=== PATIENT | female | born 1960 | race Caucasian/White ===

== ENCOUNTER → 2018-01-25 17:14 | Outpatient (CLI) | payer BC, SELFPAY ==
[2018-01-25 18:23] LABS: Hemoglobin A1c 7.6 % (4.2-6.3)
[2018-01-25 18:31] LABS: ALB/GLOB Ratio 1.1 RATIO (0.9-2.4); AST(SGOT) 24 U/L (15-37); Alanine Aminotransfer ALT/SGPT 34 U/L (13-56); Albumin, Serum 4.2 g/dL (3.2-5.0); Alkaline Phosphatase 84 U/L (45-117); Anion Gap 6 (5-15); BUN 11 mg/dL (7-18); BUN/Creat Ratio 16.8 RATIO (10-20); Calcium,Total 9.5 mg/dL (8.5-10.1); Chloride 105 mmol/L (98-107); Creatinine, Serum 0.66 mg/dL (0.55-1.02); EST Glomerular Filtration Rate 99 mL/min (>60); Est Glom Filt Rate - Afr Amer 120 mL/min (>60); Globulin 3.9 g/dL (2.2-4.2); Glucose 121 mg/dL (74-106); Potassium 4.4 mmol/L (3.5-5.1); Protein, Total 8.1 g/dL (6.4-8.2); Sodium Level 138 mmol/L (136-145)
== END ==
PROVIDERS: Family Provider Family Medicine; PCP Family Medicine; Visit Provider Family Medicine
DX: E11.9 Type 2 diabetes mellitus without complications (principal)
CPT/HCPCS: 36415; 80053; 83036

== ENCOUNTER → 2018-07-20 13:31 | Outpatient (CLI) | payer BC, SELFPAY ==
[2018-07-20 16:08] LABS: Hemoglobin A1c 7.6 % (4.2-6.3)
== END ==
PROVIDERS: Family Provider Family Medicine; PCP Family Medicine; Referring Provider Family Medicine; Visit Provider Family Medicine
DX: E11.9 Type 2 diabetes mellitus without complications (principal)
CPT/HCPCS: 36415; 83036

== ENCOUNTER → 2019-03-23 | Outpatient (CLI) | payer BC, SELFPAY ==
[2019-02-28 15:41] VITALS: BMI 35.9
[2019-03-23 11:15] LABS: Hemoglobin A1c 8.3 % (4.2-6.3)
[2019-03-23 11:33] LABS: Cholesterol 107 mg/dL (200); High Density Lipoprotein 38 mg/dL; Triglycerides 91 mg/dL; Very Low Density Lipoprotein 18 mg/dL (5-40)
== END | disposition home or self-care (01) ==
LOC: LAB 09:55
PROVIDERS: Family Provider Family Medicine; PCP Family Medicine; Referring Provider Family Medicine; Visit Provider Family Medicine
DX: E11.9 Type 2 diabetes mellitus without complications (principal); E78.5 Hyperlipidemia, unspecified
CPT/HCPCS: 36415; 80061; 83036

== ENCOUNTER → 2020-12-31 16:15 | Outpatient (CLI) | payer OTHER, SELFPAY ==
[2020-10-01 16:35] VITALS: BMI 35.0
[2020-12-31 18:02] LABS: ALB/GLOB Ratio 1.4 RATIO (0.9-2.4); AST(SGOT) 18 U/L (15-37); Alanine Aminotransfer ALT/SGPT 37 U/L (13-56); Albumin, Serum 4.5 g/dL (3.2-5.0); Alkaline Phosphatase 71 U/L (45-117); Anion Gap 7 (5-15); BUN 17 mg/dL (7-18); BUN/Creat Ratio 23.1 RATIO (10-20); Calcium,Total 9.9 mg/dL (8.5-10.1); Chloride 105 mmol/L (98-107); Cholesterol 145 mg/dL (200); Creatinine, Serum 0.74 mg/dL (0.55-1.02); EST Glomerular Filtration Rate 86 mL/min (>60); Est Glom Filt Rate - Afr Amer 104 mL/min (>60); Globulin 3.2 g/dL (2.2-4.2); Glucose 104 mg/dL (74-106); High Density Lipoprotein 47 mg/dL; Potassium 5.5 mmol/L (3.5-5.1); Protein, Total 7.7 g/dL (6.4-8.2); Sodium Level 140 mmol/L (136-145); Triglycerides 92 mg/dL; Very Low Density Lipoprotein 18 mg/dL (5-40)
[2020-12-31 18:04] LABS: Microalbumin,Random Urine < 5.0 mg/L (NO RANGE EST.)
== END ==
PROVIDERS: PCP Family Medicine; Referring Provider Family Medicine; Visit Provider Family Medicine
DX: E78.5 Hyperlipidemia, unspecified (principal); E11.9 Type 2 diabetes mellitus without complications
CPT/HCPCS: 36415; 80053; 80061; 82043; 82570

== ENCOUNTER 2022-06-14 01:19 | Emergency (ER) | payer OTHER, SELFPAY ==
[2022-06-14 01:21] VITALS: BP 152/89; PULSE 122; RESP 19; TEMP 36.9; O2SAT 95; BMI 37.3
[2022-06-14 01:28] VITALS: O2SAT 93
--- NOTE | 2022-06-14 01:28 | EKG12_ITS ---
Test Reason : CP Blood Pressure : / mmHG Vent. Rate : 099 BPM Atrial Rate : 099 BPM P-R Int : 158 ms QRS Dur : 144 ms QT Int : 390 ms P-R-T Axes : 037 -08 080 degrees QTc Int : 500 ms Sinus rhythm with frequent Premature ventricular complexes Left bundle branch block Abnormal ECG Confirmed by DUKE JACKSON, ANA LUISA ([id number]), mapping editor TAMMY LOUIS ([id number]) on 06/16/2022 8:59:03 AM Referred By: BB Confirmed By:ANA LUISA WALL MD
--- NOTE | 2022-06-14 01:28 | RAD_ITS ---
STUDY: X-RAY CHEST REASON FOR EXAM: Female, 61 years old. chest pain TECHNIQUE: Single AP portable view of the chest. COMPARISON: None. FINDINGS: The lungs are clear and expanded. There is no demonstrated pleural abnormality. Normal cardiac size with midline sternotomy wires. Normal mediastinum and adrian. Normal visualized pulmonary arteries. Normal visualized aortic arch and descending thoracic aorta. There are diffuse degenerative changes of the visualized thoracic spine. There is degenerative osteoarthritis of the bilateral shoulders. There is no demonstrated abnormality of the visualized soft tissue structures of the upper abdomen. RAD/Chest 1 View (Portable) IMPRESSION: No acute cardiopulmonary disease. Electronically Signed: Sylvie Ruiz MD at 2:15 EDT ,
--- NOTE | 2022-06-14 01:29 | ED.VIS.CHEST ---
HPI History of Present Illness Chief Complaint: Chest Pain Informant: patient, spouse/S.O. and EMS Onset/Context/Timing Onset: Hours (1) Activity at onset: sudden, onset and activity on onset (Walking back from the bathroom to her bed) Timing: Continuous Quality: Positive for Pressure Location: Substernal Current Severity: Mild Maximum Severity: Severe Worsened By: Nothing Relieved By: Nothing Associated Symptoms: Positive for Dyspnea, Cough (Started acutely with the symptoms) and Palpitations (Fluttering in chest); Negative for Nausea, Vomiting, Diaphoresis, Fever or Lightheadedness Narrative Narrative: Patient had the above symptoms and promptly called EMS, she states symptoms significantly less and just prior to EMS arrival which was maybe 20 minutes later. She had no lightheadedness or near syncope/syncope. She states they recently returned home from a couple hours away in [place] where they were at a [employer] and doing a lot of beer drinking. No drugs. Currently sober. 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 Continues to smoke. Denies cocaine. [facility] Medical History (Updated 06/14/22 @ 04:[address] Behzad Pedroza MD) CAD (coronary artery disease) Hyperlipidemia Hypertension Knee pain Shoulder pain Type 2 diabetes mellitus Home Medications aspirin 81 mg tablet,delayed release (Adult Low Dose Aspirin) 81 mg PO DAILY 01/25/18 [History Last Taken Unknown] atorvastatin 40 mg tablet 40 mg PO QDAY #90 tabs 07/23/21 [Rx Last Taken Unknown] carvedilol 3.125 mg tablet 3.125 mg PO QDAY #90 tabs 07/23/21 [Rx Last Taken Unknown] losartan 25 mg tablet 25 mg PO DAILY #90 tabs 07/23/21 [Rx Last Taken Unknown] metformin 850 mg tablet 850 mg PO BID #180 tabs 07/23/21 [Rx Last Taken Unknown] sitagliptin 100 mg tablet (Januvia) 100 mg PO QDAY #90 tabs 07/23/21 [Rx Last Taken Unknown] Allergy/AdvReac Type Severity Reaction Status Date / Time verapamil [From Isoptin] Allergy Severe confusion Verified 06/14/22 01:28 Family History Mother Degenerative joint disease Hypertension Diabetes Hyperlipidemia Grandfather Myocardial infarction Surgical History H/O hysterectomy with unilateral oophorectomy History of section History of heart bypass surgery Social History Smoking Status: Current every day smoker tobacco type: cigarettes alcohol intake: current alcohol intake frequency: a few times a week Alcohol type: beer substance use type: does not use what type of physical activity do you participate in: none ROS ROS ED Constitutional Constitutional ED: Denies chills or fever(s) Eyes Eyes: Denies change in vision or diplopia ENT ENT ED: Denies rhinorrhea or sore throat Cardiovascular Cardiovascular: Reports chest pain and palpitations Respiratory/Chest Respiratory/Chest: Reports cough; Denies dyspnea Gastrointestinal Gastrointestinal: Denies abdominal pain, diarrhea, nausea or vomiting Genitourinary Genitourinary ED: Denies dysuria or hematuria Musculoskeletal Musculoskeletal: Denies back pain or neck pain Integumentary Denies abscess or rash Neurologic Neurologic: Denies headache(s), paresthesias or weakness Psychiatric Psychiatric: Denies anxiety or suicidal thoughts EXAM Physical Exam Const Vital Signs: 06/14/22 01:21 06/14/22 01:28 06/14/22 02:21 Temperature 98.5 F Temperature Source Temporal Pulse Rate 122 H 98 Respiratory Rate 19 H 25 H Blood Pressure 152/89 H 139/81 H Blood Pressure Mean 110 100 Pulse Ox 95 93 93 Oxygen Delivery Method Room Air Room Air Room Air 06/14/22 03:00 06/14/22 04:00 Temperature Temperature Source Pulse Rate 104 H 99 Respiratory Rate 19 H 26 H Blood Pressure 132/70 H Blood Pressure Mean 90 Pulse Ox 95 93 Oxygen Delivery Method Room Air Room Air Positive well nourished, well developed and obese General Appearance ED: well developed and NAD Nutritional Appearance: obese HEENT Reports moist mucous membranes normocephalic and atraumatic Eyes PERRL and EOMs intact bilaterally Neck full ROM and supple Resp normal respiratory effort and clear to auscultation bilaterally Cardio regular rate, regular rhythm and no murmurs Rate: tachycardic and other Other Details: Frequent irregularity/PVC Peripheral Pulses: pulses 2+ throughout GI non-tender and non-distended Auscultation: normoactive bowel sounds Palpation: soft Back/Spine no CVA tenderness General Back: other FROM Extremity normal to inspection General Extremety ED: Negative for edema, pulses abnormal or tenderness General Extremity: Negative for edema or pulses abnormal Neuro oriented x3, CN's II-XII intact bilaterally and no sensory deficits noted Sensorium / Orientation: awake and alert Motor Exam: strength 5/5 throughout Psych mental status grossly normal Skin no rashes or lesions noted and no wounds Heart Score History: Moderately Suspicious ECG: Nonspecific Repolarization Age: >45 - <65 years Risk Factors: >/= 3 Risk Factors or History of CAD Troponin: </= Normal Limit Score: 5 MDM MDM MDM Narrative Medical decision making narrative: After having chest discomfort but still occasional palpitations, with frequent PVCs on the monitor. Obtained work-up, including that for pulmonary embolus since she did have recent travel. The D-dimer is elevated, so CT angiography of the chest was obtained after the 1 view chest x-ray which on my interpretation was negative/normal. CTA showed no pulmonary emboli or other acute abnormality. Her EKG shows a left bundle but I do not have an old one to compare it to. She continued to have PVCs on the monitor, and remained asymptomatic otherwise, feeling very few of them if any after her 3.5-hour observation period. Her initial troponin is 23, within normal limits. We did a repeat 2 hours later, went down to 22. Under the circumstances without any recurrent chest discomfort or symptoms, uncomfortable with her going home. We did discuss trying to curb her smoking, it is possible that she had a dysrhythmia prior to EMS arrival, at which point she started feeling better. It is also unknown if she has had PVCs for longer than when she was symptomatic since she is not feeling any of them now. I recommend close outpatient follow-up with cardiology, we discussed reasons to return. She comfortable with that plan. Lab Data Attestation: I reviewed the patient's lab results. Labs: Laboratory Results - last 24 hr 06/14/22 06/14/22 06/14/22 01:50 01:50 01:50 WBC 11.2 H RBC 4.27 Hgb 13.5 Hct 40.1 MCV 93.9 MCH 31.6 MCHC 33.7 RDW Std Deviation 44.3 H RDW Coeff of Nellie 12.9 Plt Count 196 MPV 9.7 Immature Gran % (Auto) 0.400 Neut % (Auto) 72.0 H Lymph % (Auto) 15.0 L [place] % (Auto) 7.7 Eos % (Auto) 4.5 Baso % (Auto) 0.4 Absolute Neuts (auto) 8.1 H Absolute Lymphs (auto) 1.68 Nucleated RBC % 0 D-Dimer Quant (PE/DVT) 0.73 H* Sodium 140 Potassium 4.4 Chloride 110 H Carbon Dioxide 23.0 Anion Gap 7 BUN 12 Creatinine 0.72 Estim Creat Clear Calc 68.73 Est GFR (MDRD) Af Amer 106 Est GFR (MDRD) Non-Af 88 BUN/Creatinine Ratio 16.6 Glucose 203 H Calcium 8.6 Troponin I High Sens 23 06/14/22 03:59 WBC RBC Hgb Hct MCV MCH MCHC RDW Std Deviation RDW Coeff of Nellie Plt Count MPV Immature Gran % (Auto) Neut % (Auto) Lymph % (Auto) [place] % (Auto) Eos % (Auto) Baso % (Auto) Absolute Neuts (auto) Absolute Lymphs (auto) Nucleated RBC % D-Dimer Quant (PE/DVT) Sodium Potassium Chloride Carbon Dioxide Anion Gap BUN Creatinine Estim Creat Clear Calc Est GFR (MDRD) Af Amer Est GFR (MDRD) Non-Af BUN/Creatinine Ratio Glucose Calcium Troponin I High Sens 22 Radiography Chest X-Ray - ED: 1 View, Read by ED Physician, Normal, No Acute Disease and No Infiltrates Diagnostic Testing: Clinical Impression(s) from Imaging Studies Chest X-Ray 06/14/22 01:28 IMPRESSION: No acute cardiopulmonary disease. Electronically Signed: Sylvie Ruiz MD at 2:15 EDT , Chest CTA 06/14/22 02:11 IMPRESSION: Negative CTA chest examination, without a demonstrated pulmonary embolism or arterial dissection. Mild atelectasis otherwise no acute cardiopulmonary disease. Hypoattenuating nodule with calcification within the left thyroid lobe. If indicated, this may be further assessed with ultrasound of the thyroid gland in nonacute setting. Electronically Signed: Sylvie Ruiz MD at 3:51 EDT , Rhythm Strip Rhythm Strip: Sinus Tach Rate: 110 Ectopy: PVC(s) (frequent, unifocal) EKG Initial EKG: Attestation: I personally reviewed and interpreted this EKG as follows: Interpretation: Sinus Rhythm, No Acute Injury Pattern and LBBB Comments: freq PVCs Prior: No Prior Discharge Plan Triage Chief Complaint: Chest Pain ED Provider: Behzad Pedroza Dx/Rx/DC Orders Clinical Impression: Chest pain, Chronic cough, Palpitations, Ventricular ectopy Instructions: PVCs Prescriptions: No Action aspirin [Adult Low Dose Aspirin] 81 mg tablet,delayed release (DR/EC) 81 mg PO DAILY atorvastatin 40 mg tablet 40 mg PO QDAY Qty: 90 3RF carvedilol 3.125 mg tablet 3.125 mg PO QDAY Qty: 90 4RF losartan 25 mg tablet 25 mg PO DAILY Qty: 90 3RF metformin 850 mg tablet 850 mg PO BID Qty: 180 2RF Januvia 100 mg tablet 100 mg PO QDAY Qty: 90 3RF Primary Care Provider: Desmond Locke Referrals: Desmond Locke, [Primary Care Provider] - Margarita Pulliam MD [Med Staff - Active Staff] - (this week or as soon as they can get you in -- call for appt) Disposition Disposition: Home, Self Care
[2022-06-14 01:58] LABS: Absolute Lymphocyte Count 1.68 X10^3/uL (0.83-4.51); Absolute Neutrophil Count 8.1 X10^3/uL (2.0-7.7); Basophil# 0.05 X10^3/uL; Basophil% 0.4 % (0-1); Eosinophils% 4.5 % (0-5); Hematocrit 40.1 % (37-47); Hemoglobin 13.5 g/dL (12.0-15.0); Lymphocyte # 1.68 X10^3/ul (0.83-4.51); Mean Corp Hgb Conc 33.7 g/dL (32-36); Mean Corpuscular Hgb 31.6 pg (27.0-32.0); Mean Corpuscular Volume 93.9 fL (81-99); Mean Platelet Vol. 9.7 fl (6.2-12.0); Monocyte# 0.86 X10^3/uL; Monocyte% 7.7 % (0-10); NRBC Flagged by Analyzer 0 % (0-5); Neutrophil # 8.09 X10^3/uL (2.7-7.7); Platelet Count 196 K/mm3 (150-450); RBC Distribution Width CV 12.9 % (11.6-14.6); RBC Distribution Width SD 44.3 fl (35.1-43.9); Red Blood Count 4.27 M/mm3 (4.2-5.4); White Blood Count 11.2 K/mm3 (4.4-11.0)
[2022-06-14 02:10] LABS: D-Dimer Quantitative (DVT/PE) 0.73 FEU/ug/m (0.27-0.49)
--- NOTE | 2022-06-14 02:11 | CT_ITS ---
STUDY: CTA CHEST REASON FOR EXAM: Female, 61 years old. chest pain, sob, elevated d-dimer RADIATION DOSAGE (If Supplied By Facility): CTDIvol = ( 32.20 ) mGy, DLP = ( 602.78 ) mGycm TECHNIQUE: The examination was performed with the intravenous administration of IV 100mL Isovue-370. Post-processing of the angiographic images was performed, with multiplanar reformation and 3D reconstruction. Individualized dose optimization techniques were used for this CT. COMPARISON: None. FINDINGS: Normal enhancement of the main pulmonary artery and right and left pulmonary arteries. Normal enhancement of the bilateral peripheral pulmonary arteries. There is no demonstrated pulmonary embolism. Normal thoracic aorta and visualized great vessels. There is no demonstrated aortic dissection. Mild cardiomegaly with median sternotomy wires suggestive of prior CABG repair. Normal mediastinum. Normal hilar regions. Normal visualized trachea and bronchi. The lungs are slightly underexpanded. Minimal bilateral posterior dependent atelectasis otherwise normal lung parenchyma. Normal pleura. There is a large heterogeneous hypodensity with internal calcification within the left thyroid lobe measuring 2.6 x 3.0 cm. Normal chest wall structures. There are degenerative changes of thoracic spine. Normal visualized upper abdomen. CT/CTA Chest W/WO Contrast IMPRESSION: Negative CTA chest examination, without a demonstrated pulmonary embolism or arterial dissection. Mild atelectasis otherwise no acute cardiopulmonary disease. Hypoattenuating nodule with calcification within the left thyroid lobe. If indicated, this may be further assessed with ultrasound of the thyroid gland in nonacute setting. Electronically Signed: Sylvie Ruiz MD at 3:51 EDT ,
[2022-06-14 02:16] LABS: Anion Gap 7 (5-15); BUN 12 mg/dL (7-18); BUN/Creat Ratio 16.6 RATIO (10-20); Calcium,Total 8.6 mg/dL (8.5-10.1); Chloride 110 mmol/L (98-107); Creatinine, Serum 0.72 mg/dL (0.55-1.02); EST Glomerular Filtration Rate 88 mL/min (>60); Est Glom Filt Rate - Afr Amer 106 mL/min (>60); Estimated Creatinine Clearance 68.73 ml/min; Glucose 203 mg/dL (74-106); Potassium 4.4 mmol/L (3.5-5.1); Sodium Level 140 mmol/L (136-145); Troponin-I HS (w/2H Reflex) 23 pg/mL (3.0-54.0)
[2022-06-14 02:21] VITALS: BP 139/81; PULSE 98; RESP 25; O2SAT 93
[2022-06-14 03:00] VITALS: BP 132/70; PULSE 104; RESP 19; O2SAT 95
[2022-06-14 03:54] LABS: Reflex Troponin-HS? (from REC) Y
[2022-06-14 04:00] VITALS: PULSE 99; RESP 26; O2SAT 93
[2022-06-14 04:45] LABS: Troponin-I HS 22 pg/mL (3.0-54.0)
[2022-06-14 04:48] VITALS: BP 132/70; PULSE 98; RESP 27; O2SAT 94
== END 2022-06-14 04:55 | disposition home or self-care (01) ==
PROVIDERS: Emergency Provider Emergency Medicine; PCP Family Medicine; Visit Provider Emergency Medicine
DX: R07.9 Chest pain, unspecified (principal); E11.9 Type 2 diabetes mellitus without complications; I49.3 Ventricular premature depolarization; R05.3 Chronic cough; R00.2 Palpitations; I25.10 Atherosclerotic heart disease of native coronary artery without angina pectoris; I10 Essential (primary) hypertension; E78.5 Hyperlipidemia, unspecified; E66.9 Obesity, unspecified; F17.210 Nicotine dependence, cigarettes, uncomplicated; Z79.82 Long term (current) use of aspirin; Z79.84 Long term (current) use of oral hypoglycemic drugs; Z79.899 Other long term (current) drug therapy
CPT/HCPCS: 36415; 71045; 71275; 80048; 84484; 85025; 85379; 87811; 93005; 96360; 99285; J7040; Q9967; A4216

== ENCOUNTER → 2022-06-25 | Outpatient (CLI) | payer OTHER, SELFPAY | END | disposition home or self-care (01) | LOC: SL 12:02 | PROVIDERS: Referring Provider Nurse Practitioner Family; Visit Provider Nurse Practitioner Family | DX: G47.10 Hypersomnia, unspecified (principal) | CPT/HCPCS: 95806 ==

== ENCOUNTER → 2022-07-12 | Outpatient (CLI) | payer OTHER, SELFPAY ==
--- NOTE | 2022-07-12 06:47 | ECHOCS_ITS ---
Reason For Study: CAD Procedure This was a 2D Doppler, Color Flow transthoracic echocardiogram. The study was technically difficult. Contrast injection was performed. Exam performed in department. Left Ventricle Normal LV size. Left ventricular systolic function is lower limits of normal. The estimated ejection fraction is 50 %. Septal motion consistent with IVCD. No evidence for diastolic dysfunction. Basal inferoseptal: Hypokinetic. Basal anteroseptal: Hypokinetic. Mid-inferoseptal : Hypokinetic. Mid- anteroseptal : Hypokinetic. Septal [place] : Hypokinetic. Right Ventricle Normal RV size. Normal systolic function. Atria Normal left atrium. Normal right atrium. No doppler evidence for ASD. Mitral Valve There is no mitral annular calcification. Normal mitral valve. Trivial mitral valve insufficiency. Tricuspid Valve Normal tricuspid valve. Trivial tricuspid valve insufficiency. Unable to estimate RV systolic pressure/pulmonary artery pressure due to technically difficult study. Aortic Valve Trisinus/trileaflet aortic valve. Mild focal aortic valve calcification. Trivial aortic valve insufficiency. Pulmonic Valve The pulmonic valve is not well visualized. Great Vessels Normal sized aortic root. Pericardium/Pleural No pericardial effusion. Medication Diluted definity 2ml given slow IV push to enhance endocardial definition. MMode/2D Measurements & Calculations LVIDd: 4.8 cm IVSd: 1.2 cm Ao root diam: 3.4 cm LVIDs: 3.5 cm LVPWd: 1.0 cm RVDd: 3.3 cm FS: 27.1 % LAV(MOD-bp): 44.0 ml LVAd ap4: 33.4 cm2 LVAd ap2: 30.0 cm2 LAV(MOD-bp) Indexed: 22.7 ml/m2 LVLd ap4: 9.1 cm LVLd ap2: 9.0 cm LAV(MOD-sp2): 43.0 ml EDV(MOD-sp4): 104.8 ml EDV(MOD-sp2): 83.8 ml LAV(MOD-sp4): 43.0 ml EDV(sp4-el): 104.0 ml EDV(sp2-el): 84.6 ml LVAs ap4: 23.8 cm2 LVAs ap2: 19.5 cm2 LVLs ap4: 8.4 cm LVLs ap2: 8.1 cm ESV(MOD-sp4): 56.9 ml ESV(MOD-sp2): 39.4 ml ESV(sp4-el): 57.4 ml ESV(sp2-el): 40.0 ml EF(MOD-sp4): 45.7 % EF(MOD-sp2): 52.9 % EF(sp4-el): 44.8 % SV(MOD-sp4): 47.9 ml SV(MOD-sp2): 44.3 ml SV(sp4-el): 46.6 ml LA A4 area: 17.1 cm2 LA dimension(2D): 4.0 cm RA A4 area: 14.6 cm2 Time Measurements MV dec time: 0.18 sec Doppler Measurements & Calculations MV E max sebastian: 79.2 cm/sec Lat Peak E' Sebastian: 10.5 cm/sec Med Peak E' Sebastian: 6.3 cm/sec MV A max sebastian: 83.9 cm/sec E/E' lat: 7.6 E/E' med: 12.5 MV E/A: 0.95 Ao V2 max: 157.1 cm/sec LV V1 max: 96.4 cm/sec MV dec slope: 439.3 cm/sec2 Ao max P.9 mmHg LV V1 max P.7 mmHg PA V2 max: 112.9 cm/sec ECHO/Echo Complete W/ Contrast Interpretation Summary The study was technically difficult. Contrast injection was performed. Left ventricular systolic function is lower limits of normal. The estimated ejection fraction is 50 %. Septal motion consistent with IVCD. Trivial mitral valve insufficiency. Trivial tricuspid valve insufficiency. Mild focal aortic valve calcification. Trivial aortic valve insufficiency. Unable to estimate RV systolic pressure/pulmonary artery pressure due to techni noble difficult study. No evidence for diastolic dysfunction. Ordering Physician: Herminio Anand Referring Physician: Daniel Locke M.D. Performed By: Viji Alvarenga RDCS
[2022-07-12 07:51] LABS: AST(SGOT) 36 U/L (15-37); Alanine Aminotransfer ALT/SGPT 40 U/L (13-56); Albumin, Serum 3.9 g/dL (3.2-5.0); Alkaline Phosphatase 65 U/L (45-117); Bilirubin, Direct 0.14 mg/dL (0.00-0.30); Cholesterol 109 mg/dL (200); Globulin 3.8 g/dL (2.2-4.2); High Density Lipoprotein 45 mg/dL; Protein, Total 7.7 g/dL (6.4-8.2); Triglycerides 128 mg/dL; Very Low Density Lipoprotein 26 mg/dL (5-40)
--- NOTE | 2022-07-12 11:53 | STRESSREP_ITS ---
Stress Test Report Date: Procedure: Pharmacologic stress nuclear imaging study Indications: Chest pain; dyspnea; CAD; CABG; left bundle branch block Consent: Per the patient Procedure: The patient underwent pharmacologic (Regadenoson 0.4mg ) evaluation with a peak heart rate of 98 beats per minute (61%predicted maximal heart rate) and a peak blood pressure of 164/84 mmHg. The baseline ECG demonstrated sinus rhythm; left bundle branch block pattern. The peak pharmacologic ECG demonstrated continued left bundle branch block pattern. There were occasional PVCs during infusion and recovery. There was no complaint of chest discomfort during pharmacologic infusion or recovery. The examination was discontinued secondary to completion of protocol. Impression: 1. Pharmacologic (Regadenoson) evaluation 2. Peak pharmacologic ECG with continued left bundle branch block pattern. 3. There were occasional PVCs during infusion and recovery. 4. Nuclear images pending Myocardial perfusion imaging study: Technique: The patient was injected with 11.1 millicuries of technetium 99m Cardiolite and subsequently rest SPECT Cardiolite nuclear imaging was obtained in the horizontal long, vertical long, and short axis views. The patient underwent pharmacologic (Regadenoson) evaluation with a peak heart rate of 98 beats per minute (61% percent predicted maximal heart rate) and a peak blood pressure of 164/84 mmHg. The patient was injected with 35.0 millicuries of technetium 99m Cardiolite and subsequently stress SPECT Cardiolite nuclear imaging was obtained in the horizontal long, vertical long, and short axis views. A gated Cardiolite study at peak stress was obtained. Interpretation: Rest and stress SPECT Cardiolite nuclear imaging status post realignment, normalization, and attenuation correction demonstrate the appearance of a small area of diminished myocardial perfusion/tracer uptake in the septal apical areas without significant change between rest and stress. There is end systolic thickening and brightening. The gated Cardiolite study demonstrates myocardial thickening and inward wall motion. The reported LVEF is 57%. Impression: 1. Rest and stress SPECT Cardiolite nuclear imaging demonstrate myocardial perfusion changes in the septal apical area potentially compatible with physiologic apical thinning, however, an area of previous myocardial injury/infarction cannot necessarily be excluded. There are no myocardial perfusion changes considered diagnostic for associated stress-induced myocardial ischemia. 2. The gated Cardiolite study reports an LVEF of 57%. This note was generated with ioBridge software. It may contain incorrect words, spelling, and punctuation that were not noted in checking the note before signing.
== END | disposition home or self-care (01) ==
PROVIDERS: PCP Family Medicine; Referring Provider Internal Medicine Cardiovascular Disease; Visit Provider Internal Medicine Cardiovascular Disease
DX: I49.3 Ventricular premature depolarization (principal); Z95.1 Presence of aortocoronary bypass graft; R00.2 Palpitations; I44.7 Left bundle-branch block, unspecified; I25.10 Atherosclerotic heart disease of native coronary artery without angina pectoris; E78.2 Mixed hyperlipidemia; I10 Essential (primary) hypertension; Z72.0 Tobacco use
CPT/HCPCS: 36415; 78452; 80061; 80076; 93017; 93225; 93226; 93306; A9500; Q9957; A4216; C8929; J2785

== ENCOUNTER → 2022-08-09 | Outpatient (CLI) | payer OTHER, SELFPAY | END | disposition home or self-care (01) | LOC: SL 08:50 | PROVIDERS: PCP Family Medicine; Visit Provider Nurse Practitioner Family | DX: Z00.00 Encounter for general adult medical examination without abnormal findings (principal) ==

== ENCOUNTER → 2022-09-20 | Outpatient (CLI) | payer OTHER, SELFPAY | END | disposition home or self-care (01) | LOC: LABSPEC 10:26 | PROVIDERS: PCP Family Medicine; Referring Provider Physician Assistant; Visit Provider Physician Assistant | DX: U07.1 COVID-19 (principal); R50.9 Fever, unspecified; M79.10 Myalgia, unspecified site | CPT/HCPCS: 87635; U0003; U0005 ==

== ENCOUNTER → 2022-10-04 | Outpatient (CLI) | payer OTHER, SELFPAY ==
--- NOTE | 2022-10-04 16:15 | US_ITS ---
STUDY: THYROID ULTRASOUND REASON FOR EXAM: Female, 61 years old. left thyroid nodule TECHNIQUE: Ultrasound evaluation of the thyroid was performed with real-time and static valderrama-scale imaging. COMPARISON: None. FINDINGS: RIGHT LOBE: The right lobe of the thyroid gland measures 6.0 x 2.5 x 1.5 cm. There is a homogeneous echotexture. Nodule 1:30 x 15 x 22 mm solid isoechoic wider than tall ill-defined marginated nodule with no echogenic foci (TR 3) in the mid right lobe and fine needle aspiration biopsy is recommended. Nodule 2:6 x 6 x 4 mm solid hypoechoic wider than tall smoothly marginated nodule and no echogenic foci (TR 4) in the inferior right lobe consistent with an adenoma. LEFT LOBE: The left lobe of the thyroid gland measures 8.2 x 4.1 x 3.1 cm. There is a homogeneous echotexture. Nodule 3:57 x 27 x 35 mm solid isoechoic wire than tall ill-defined marginated nodule with macrocalcification (TR 4) in the mid left lobe for which ultrasound-guided biopsy is recommended. ISTHMUS: The isthmus measures 2 mm thick. . The regional lymph nodes are normal. US/Thyroid IMPRESSION: Dominant nodules bilaterally and ultrasound-guided biopsy is recommended. Follow-up ultrasound is recommended in 1 year. Electronically Signed: Juanito Balderrama MD at 17:03 EST ,
== END | disposition home or self-care (01) ==
PROVIDERS: PCP Family Medicine; Referring Provider Nurse Practitioner Family; Visit Provider Nurse Practitioner Family
DX: E04.1 Nontoxic single thyroid nodule (principal)
CPT/HCPCS: 76536

== ENCOUNTER → 2022-10-11 | Outpatient (CLI) | payer OTHER, SELFPAY ==
--- NOTE | 2022-10-11 08:40 | FLU_PTH ---
PATIENT: HAMZAH SRINIVASAN LOC: [facility] U#:[id number] AGE/SX: 61/F ROOM: RE10/11/[address]: Dr. Ifeanyi Mirza MD : 1960 BED: DIS: 10/11/2022 SPEC #: [id number] RECD: 10/11/22 10:47 STATUS: [place] REQ #: [id number] DANYA: 10/11/22 08:[address]: Ifeanyi Mirza DEPT: CYTOLOGY RECD BY: Renita Alarcon ENTERED: 10/11/22 13:45 SP TYPE: Fluid OTHR DR: Dr. Desmond Locke DO Tissues: A - Thyroid gland, NOS B - Thyroid gland, NOS C - Thyroid gland, NOS D - Thyroid gland, NOS Procedures: Special Stain Group II Surgery Specimen Level IV Cytospin Fluid Cytology Other HEADER OPERATION: Fine needle aspiration right and left thyroid nodules PRE-OP DIAGNOSIS: Multiple thyroid nodules TISSUE SUBMITTED: A ? Left thyroid nodule fluid, B - Left thyroid nodule x4 slides, C ? Right thyroid nodule fluid, D ? Left thyroid nodule x4 slides DIAGNOSIS CYTOLOGY A. Left thyroid nodule fluid, fine needle aspiration (cytospin and cell block): A few follicular cells of undetermined significance ([place] Category III). B. Left thyroid nodule, fine needle aspiration (smears): Follicular cells of undetermined significance ([place] Category III). See comment. C. Right thyroid nodule fluid, fine needle aspiration (cytospin and cell block): Clusters of benign follicular cells noted. D. Right thyroid nodule, fine needle aspiration (smears): Consistent with benign follicular/colloid nodule ([place] Category II). Adequate for evaluation. See comment. SJ:liam 10/12/2022 COMMENT B. The specimen is paucicellular; however, meets the minimal criteria for adequacy of the specimen. Multi-gene next-generation sequencing panel is recommended for this lesion. Correlation with clinical, radiologic findings and appropriate follow up are necessary. Case has been reviewed in consultation with Dr. Mcdonald who concurs with the above diagnosis. IDC:AM CYTOLOGY STUDY Slides are reviewed. CYTOLOGY GROSS A - Received is 20 ml of red cloudy fluid labeled with the patient's name and and designated per the requisition as left thyroid. Submitted for cytology preparation including cell block. B - Received are four smears labeled with the patient's name and designated per the requisition as left thyroid nodule. Submitted for staining. C - Received is 15 ml of red cloudy fluid labeled with the patient's name and and designated per the requisition as right thyroid nodule. Submitted for cytology preparation including cell block. D - Received are four smears labeled with the patient's name and designated per the requisition as right thyroid nodule. Submitted for staining. / liam 10/11/2022 TC:5 CPT: 82910 x4, 60195 x2
== END | disposition home or self-care (01) ==
LOC: LABSPEC 10:59
PROVIDERS: PCP Family Medicine; Visit Provider Surgery
DX: E04.2 Nontoxic multinodular goiter (principal)
CPT/HCPCS: 88108; 88161; 88305; 88313

== ENCOUNTER → 2022-11-15 | Outpatient (CLI) | payer OTHER, SELFPAY ==
--- NOTE | 2022-11-15 08:30 | FLU_PTH ---
PATIENT: HAMZAH SRINIVASAN LOC: [facility] U#:[id number] AGE/SX: 61/F ROOM: RE11/15/[address]: Dr. Ifeanyi Mirza MD : 1960 BED: DIS: 11/15/2022 SPEC #: [id number] RECD: 11/15/22 10:50 STATUS: [place] REQ #: [id number] DANYA: 11/15/22 08:[address]: Ifeanyi Mirza DEPT: CYTOLOGY RECD BY: Renita Alarcon ENTERED: 11/15/22 12:00 SP TYPE: Fluid OTHR DR: Dr. Desmond Locke, DO Tissues: A - Thyroid gland, NOS B - Thyroid gland, NOS Procedures: Special Stain Group II Surgery Specimen Level IV Cytospin Fluid Cytology Other HEADER OPERATION: Left mid thyroid nodule fine needle aspiration PRE-OP DIAGNOSIS: Left mid thyroid nodule TISSUE SUBMITTED: A - Left mid thyroid nodule fluid, B - Left mid thyroid nodule x4 slides DIAGNOSIS CYTOLOGY A. Fine needle aspiration, left mid thyroid nodule (cytospin and cell block): Negative for malignant cells. See comment. B. Fine needle aspiration, left mid thyroid nodule (smears): Atypia of undetermined clinical significance ([place] Category III). See comment. AM:liam 11/16/2022 COMMENT A. Rare benign appearing follicular cells are present. The [place] System for thyroid diagnostic categorization was used in the evaluation of this case. The specimen is adequate for evaluation. Per recommendations and a clinician-approved plan (a call was made to the referring doctor about the recommendation), genomic testing (Afirma) has been submitted. Results will be reported as an addendum and faxed to clinician. Reference is made to the patient's previous left thyroid nodule, FNA ([id number]) in which follicular cells of undetermined significance were identified. CYTOLOGY STUDY Slides are reviewed. CYTOLOGY GROSS A - Received is 30 ml of red cloudy fluid labeled with the patient's name and and designated per the requisition as left mid thyroid nodule. Submitted for cytology preparation including cell block. B - Received are four smears labeled with the patient's name and designated per the requisition as left mid thyroid nodule. Submitted for staining. / liam 11/15/2022 TC:? CPT: 51500 x2, 39272
== END | disposition home or self-care (01) ==
LOC: LABSPEC 10:57
PROVIDERS: PCP Family Medicine; Referring Provider Surgery; Visit Provider Surgery
DX: E04.1 Nontoxic single thyroid nodule (principal)
CPT/HCPCS: 88108; 88161; 88305; 88313

== ENCOUNTER 2023-01-26 13:46 | Emergency (ER) | payer OTHER, SELFPAY ==
[2023-01-26 13:47] VITALS: BP 166/87; PULSE 82; RESP 18; TEMP 35.4; O2SAT 99; BMI 32.8
--- NOTE | 2023-01-26 15:49 | CT_ITS ---
STUDY: CT ABDOMEN AND PELVIS WITHOUT CONTRAST REASON FOR EXAM: Female, 62 years old. Kidney Stone- right hip./ flank pain RADIATION DOSAGE (If Supplied By Facility): CTDIvol = ( 15.80 ) mGy, DLP = ( 738.31 ) mGycm TECHNIQUE: Transaxial images were obtained from the dome of the diaphragm to the symphysis pubis without oral contrast, and without intravenous contrast. Sagittal and coronal images were reconstructed. Individualized dose optimization techniques were used for this CT. COMPARISON: None. FINDINGS: The visualized lung bases are unremarkable. The visualized portions of the heart are within normal limits. Normal liver. Normal gallbladder and extrahepatic biliary system. Normal spleen. Normal pancreas. Normal bilateral adrenal glands. Punctate right renal nonobstructing nephrolith is present. Normal left kidney. Normal visualized stomach. Normal small intestine. Normal colon. The appendix is visualized and appears normal. There is diffuse atherosclerotic calcification of the abdominal aorta, without a demonstrated aneurysm. Normal inferior vena cava. Normal retroperitoneum. Normal urinary bladder. Normal abdominal wall. Normal osseous structures. CT/Abdomen/Pelvis without Cont IMPRESSION: Right renal punctate nonobstructing nephrolith with no evidence of ureteral stone or hydronephrosis. Otherwise no additional acute intra-abdominal process or focal inflammation. Normal appendix. Electronically Signed: Miguel Angel Mauro DO at 16:49 EDT ,
--- NOTE | 2023-01-26 15:50 | EDS_ITS ---
HPI History of Present Illness Chief Complaint: Lower Extremity Injury Informant: patient Narrative Narrative: Patient is a 62-year-old female presenting with throbbing right hip pain. States its been going on for the past 4 days. She states currently her position of comfort is standing and leaning forward. She is been taking ibuprofen with no significant leaf. [facility] and an x-ray of her back which showed degenerative changes and was told that her urine did not have any blood in it. Patient states she has some pain rating down the front of her thigh with some mild subjective paresthesias. She denies any urinary or bowel complaints. She was having some mild constipation but took a small amount of milk of magnesia yesterday and that cleared up the constipation. She notes she does have a history of kidney stones and this feels similar to her kidney stones. Patient denies any nausea or vomiting. She denies any fever. She was offered steroids and muscle relaxers yesterday at the urgent care however declined stating that she is already on too many medicines. No other complaints at this time. [facility] Medical History Atherosclerotic heart disease of [place] coronary artery without angina pectoris CAD (coronary artery disease) Dyspnea Essential hypertension History of non-ST elevation myocardial infarction (NSTEMI) Hyperlipidemia Hypersomnia Hypertension Knee pain LBBB (left bundle branch block) Left thyroid nodule Mixed hyperlipidemia JAUN (obstructive sleep apnea) JAUN (obstructive sleep apnea) Right hip pain Right low back pain Shoulder pain Tobacco abuse Type 2 diabetes mellitus URI, acute Home Medications aspirin 81 mg tablet,delayed release (Adult Low Dose Aspirin) 81 mg PO DAILY 01/25/18 [History Last Taken Unknown] carvedilol 6.25 mg tablet 6.25 mg PO BID #180 tabs 07/14/22 [Rx Last Taken Unknown] losartan 25 mg tablet 25 mg PO BID #180 tabs 07/14/22 [Rx Last Taken Unknown] atorvastatin 40 mg tablet 40 mg PO QDAY #90 tabs 08/23/22 [Rx Last Taken Unknown] tirzepatide 5 mg/0.5 mL subcutaneous pen injector (Mounjaro) 5 mg (0.5 mL) subcut QWEEK #2 mL 11/29/22 [Rx Last Taken Unknown] empagliflozin 25 mg tablet (Jardiance) See Rx Instructions .Route .COMPLEX #90 tabs 01/11/23 [Rx Last Taken Unknown] metformin 500 mg tablet 500 mg PO BID #180 tabs 01/11/23 [Rx Last Taken Unknown] hydrocodone-acetaminophen 5-325mg 5mg-325mg 1 tab PO Q6H PRN PRN Pain 3 days #12 TABLETS 01/26/23 [Rx Last Taken Unknown] prednisone 20 mg tablet 40 mg PO DAILY #8 tabs 01/26/23 [Rx Last Taken Unknown] Allergy/AdvReac Type Severity Reaction Status Date / Time verapamil [From Isoptin] Allergy Severe confusion Verified 01/26/23 13:49 Family History Mother Degenerative joint disease Hypertension Diabetes Hyperlipidemia Grandfather Myocardial infarction Surgical History H/O hysterectomy with unilateral oophorectomy History of section History of coronary artery bypass graft x 3 (~03/29/14) Social History Smoking Status: Current every day smoker tobacco type: cigarettes Tobacco: How many years used: 10 alcohol intake: current alcohol intake frequency: a few times a week Alcohol type: beer details: 2-3 per week substance use type: does not use caffeine: Yes Type: coffee Number of servings: 4 what type of physical activity do you participate in: none ROS ROS ED Constitutional Constitutional ED: Denies chills Cardiovascular Cardiovascular: Denies chest pain or palpitations Respiratory/Chest Respiratory/Chest: Denies cough Gastrointestinal Gastrointestinal: Reports constipation; Denies abdominal pain, nausea or vomiting Genitourinary Genitourinary ED: Denies dysuria, hematuria or urinary frequency Musculoskeletal Musculoskeletal: Reports back pain; Denies myalgias Integumentary Denies rash Neurologic Neurologic: Reports paresthesias; Denies headache(s) or weakness Psychiatric Psychiatric: Denies anxiety Hematologic/Lymphatic Hematologic/Lymphatic: Denies easy bleeding or easy bruising EXAM Physical Exam Const Vital Signs: 01/26/23 18:40 Respiratory Rate 18 Positive well nourished and well developed General Appearance ED: well developed HEENT Reports moist mucous membranes Eyes PERRL and EOMs intact bilaterally Neck supple Chest Wall inspection of chest normal Resp normal respiratory effort and clear to auscultation bilaterally Cardio regular rate, regular rhythm and no murmurs GI normal to inspection, nondistended, normoactive bowel sounds and non-tender Back/Spine no CVA tenderness Back/Spine Narrative: Negative straight leg test bilaterally. Laying flat seems to exacerbate her symptoms however. General Back: Negative for CVA tenderness Thoracic Spine / Upper Back: Negative for thoracic spinal tenderness Extremity normal to inspection General Extremety ED: Negative for edema or tenderness General Extremity: Negative for edema Neuro oriented x3 Sensorium / Orientation: alert Motor Exam: Negative for general weakness Psych mental status grossly normal Skin no rashes or lesions noted and no wounds MDM MDM MDM Narrative Medical decision making narrative: Patient presents for continued right hip pain. She has a hard time finding position of comfort. She was seen at urgent care yesterday and had an x-ray of her back. She is also steroids and muscle relaxers but had declined at that time. She is having a hard time working because of her pain so she came to the emergency room today. She does have some paresthesias over her anterior thigh. She has negative straight leg test bilaterally. No focal neurologic deficits appreciated. No overlying rash consistent with shingles. Work-up largely normal. She is have a history of kidney stones and kidney stone work-up was obtained. She has a nonobstructing stone in the right kidney however this does not explain her symptoms. No findings distant with pyelonephritis. She does not have any peripheral edema. Patient counseled the exact cause of her pain is not clear however I suspect it is more muscle skeletal/neuropathic in nature. Discussed the risk and benefits of steroid therapy including hyperglycemia. Patient will be discharged home with a prescription for steroid burst as well as short course of pain medicine to help with her symptoms. Is given referral to pain management, Dr. Martinez. Encouraged follow-up with primary care doctor. Patient has good distal pulses and I do not think this is a vascular issue at this time. Lab Data Labs: Laboratory Results - last 24 hr 01/26/23 01/26/23 01/26/23 16:04 16:04 17:25 WBC 7.4 RBC 5.07 Hgb 15.7 H Hct 48.3 H MCV 95.3 MCH 31.0 MCHC 32.5 RDW Std Deviation 46.0 H RDW Coeff of Nellie 13.2 Plt Count 262 MPV 9.6 Immature Gran % (Auto) 0.400 Neut % (Auto) 56.7 Lymph % (Auto) 28.5 Hughes % (Auto) 9.6 Eos % (Auto) 4.3 Baso % (Auto) 0.5 Absolute Neuts (auto) 4.2 Absolute Lymphs (auto) 2.10 Nucleated RBC % 0 Sodium 142 Potassium 4.7 Chloride 110 H Carbon Dioxide 30.0 Anion Gap 2 L BUN 18 Creatinine 0.77 Estim Creat Clear Calc 63.47 Est GFR (MDRD) Af Amer 99 Est GFR (MDRD) Non-Af 81 BUN/Creatinine Ratio 23.5 H Glucose 139 H Calcium 9.4 Urine Color Yellow Urine Clarity Clear Urine pH 7.0 Ur Specific [place] 1.010 Urine Protein 15 H Urine Glucose (UA) 1000 H Urine Ketones Negative Urine Occult Blood Negative Urine Nitrite Negative Urine Bilirubin Negative Urine Urobilinogen Normal Ur Leukocyte Esterase Negative Urine RBC 0 SEEN Urine WBC 0-5 SEEN Ur Squamous Epith Cells 0-5 SEEN Urine Bacteria 0 SEEN Urine Mucus 0 SEEN Radiography Diagnostic Testing: Clinical Impression(s) from Imaging Studies Abdomen/Pelvis CT 01/26/23 15:49 IMPRESSION: Right renal punctate nonobstructing nephrolith with no evidence of ureteral stone or hydronephrosis. Otherwise no additional acute intra-abdominal process or focal inflammation. Normal appendix. Electronically Signed: Miguel Angel Mauro DO at 16:49 EDT Reading Location ID and State: [facility] / [place] , Service support , Hip/Pelvis X-Ray 01/26/23 16:15 IMPRESSION: Moderate hip arthrosis with no evidence of acute osseous injury. Electronically Signed: Miguel Angel Mauro DO at 16:41 EDT , Discharge Plan Triage Chief Complaint: Lower Extremity Injury ED Provider: Alexus Mercado Dx/Rx/DC Orders Clinical Impression: Acute pain of right hip, Neuropathic pain Instructions: ED Arthralgia Prescriptions: New prednisone 20 mg tablet 40 mg PO DAILY Qty: 8 0RF hydrocodone-acetaminophen 5-325 mg tablet 1 tab PO Q6H PRN PRN (Reason: Pain) 3 Days Qty: 12 0RF No Action aspirin [Adult Low Dose Aspirin] 81 mg tablet,delayed release (DR/EC) 81 mg PO DAILY atorvastatin 40 mg tablet 40 mg PO QDAY Qty: 90 3RF Jardiance 25 mg tablet See Rx Instructions .ROUTE .COMPLEX Qty: 90 1RF Dose Instruction: TAKE 1 TABLET BY MOUTH EVERY DAY IN THE MORNING Rx Instructions: TAKE 1 TABLET BY MOUTH EVERY DAY IN THE MORNING metformin 500 mg tablet 500 mg PO BID Qty: 180 2RF carvedilol 6.25 mg tablet 6.25 mg PO BID Qty: 180 4RF Rx Instructions: must administer with a meal/food losartan 25 mg tablet 25 mg PO BID Qty: 180 4RF Mounjaro 5 mg/0.5 mL pen injector 5 mg subcut QWEEK Qty: 2 2RF Primary Care Provider: Desmond Locke Referrals: Santana Martinez DO [Non-Staff] - 1-2 Days if not improving Desmond Locke, [Primary Care Provider] - Activity Restrictions/Additional Instructions: The exact cause of your pain is not clear based on your work-up today. No signs of kidney infection or hip injury. 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 I suspect nerve from your back is getting irritated and this is causing your pain. If you have new numbness or weakness of the leg please return to the emergency room. You can continue to alternate ibuprofen and Tylenol. You were placed on a short burst of steroids. Please keep an eye on your blood sugars as steroids do cause your blood sugars to go up. Discussed this with your primary care doctor. You been given referral to a pain management doctor as well. Disposition Disposition: Home, Self Care Discharge Date/Time: 01/26/23 18:41
[2023-01-26] MEDS: 0.9% Normal Saline 1,000 ML 250 ML IV (16:04)
--- NOTE | 2023-01-26 16:15 | RAD_ITS ---
STUDY: X-RAY - PELVIS AND RIGHT HIP REASON FOR EXAM: Female, 62 years old. pain TECHNIQUE: 3 views of the pelvis and hip. COMPARISON: None. FINDINGS: There is a non-specific bowel gas pattern. Normal visualized soft tissue structures. Normal bilateral iliac wings, sacroiliac joints and visualized sacrum. Normal bilateral superior and inferior pubic rami. Normal pubic symphysis. Normal bilateral ischial tuberosities. Normal visualized femoral head. Normal acetabulum. There is moderate articular joint space narrowing of the hip. RAD/HIP, UNI W/ Pelvis 2-3 Views IMPRESSION: Moderate hip arthrosis with no evidence of acute osseous injury. Electronically Signed: Miguel Angel Mauro DO at 16:41 EDT ,
[2023-01-26 16:17] LABS: Absolute Neutrophil Count 4.2 X10^3/uL (2.0-7.7); Basophil# 0.04 X10^3/uL; Basophil% 0.5 % (0-1); Eosinophil# 0.32 X10^3/uL; Eosinophils% 4.3 % (0-5); Hematocrit 48.3 % (37-47); Hemoglobin 15.7 g/dL (12.0-15.0); Lymphocyte % 28.5 % (19-41); Mean Corp Hgb Conc 32.5 g/dL (32-36); Mean Corpuscular Volume 95.3 fL (81-99); Mean Platelet Vol. 9.6 fl (6.2-12.0); Monocyte# 0.71 X10^3/uL; Monocyte% 9.6 % (0-10); NRBC Flagged by Analyzer 0 % (0-5); Neutrophil # 4.16 X10^3/uL (2.7-7.7); Neutrophil % 56.7 % (47-70); Platelet Count 262 K/mm3 (150-450); RBC Distribution Width CV 13.2 % (11.6-14.6); Red Blood Count 5.07 M/mm3 (4.2-5.4); White Blood Count 7.4 K/mm3 (4.4-11.0)
[2023-01-26 16:29] LABS: Anion Gap 2 (5-15); BUN 18 mg/dL (7-18); BUN/Creat Ratio 23.5 RATIO (10-20); Calcium,Total 9.4 mg/dL (8.5-10.1); Chloride 110 mmol/L (98-107); Creatinine, Serum 0.77 mg/dL (0.55-1.02); EST Glomerular Filtration Rate 81 mL/min (>60); Est Glom Filt Rate - Afr Amer 99 mL/min (>60); Estimated Creatinine Clearance 63.47 ml/min; Glucose 139 mg/dL (74-106); Potassium 4.7 mmol/L (3.5-5.1); Sodium Level 142 mmol/L (136-145)
[2023-01-26 17:31] LABS: Bacteria 0 SEEN /hpf (None Seen); Mucous, Urine 0 SEEN /hpf (<or=2+); Red Blood Cells-Urine 0 SEEN /hpf (0-5)
[2023-01-26 17:37] LABS: Color, Urine Yellow (Yellow); Glucose, Dipstick 1000 mg/dl (Normal); Ketone-Dipstick Negative (Negative); Leukocyte Esterase-Dipstick Negative /ul (Negative); Nitrite-Dipstick Negative (Negative); Occult Blood-Urine Negative /ul (Negative); Protein-Dipstick 15 mg/dl (Negative); Urine Bilirubin Dipstick Negative (Negative); Urine Clarity Clear (Clear); Urine Urobilinogen Normal (Normal)
[2023-01-26 17:53] LABS: Squamous Epithelial Cells - UA 0-5 SEEN /hpf (5-10); White Blood Cells 0-5 SEEN /hpf (0-5)
[2023-01-26] MEDS: HYDROcodone Bitartrate/Apap 5/325 Tablet PO (18:39)
[2023-01-26] MEDS: predniSONE 20 MG Tablet 60 MG PO (18:39)
[2023-01-26 18:40] VITALS: RESP 18
== END 2023-01-26 18:41 | disposition home or self-care (01) ==
PROVIDERS: Emergency Provider Emergency Medicine; PCP Family Medicine; Visit Provider Emergency Medicine
DX: M25.551 Pain in right hip (principal); E11.40 Type 2 diabetes mellitus with diabetic neuropathy, unspecified; E78.2 Mixed hyperlipidemia; I25.10 Atherosclerotic heart disease of native coronary artery without angina pectoris; N20.0 Calculus of kidney; I10 Essential (primary) hypertension; Z79.52 Long term (current) use of systemic steroids; F17.210 Nicotine dependence, cigarettes, uncomplicated; K59.00 Constipation, unspecified; M54.9 Dorsalgia, unspecified; R20.2 Paresthesia of skin
CPT/HCPCS: 73502; 74176; 80048; 81001; 85025; 96360; 96361; 99284; J7030

== ENCOUNTER → 2023-04-27 | Outpatient (CLI) | payer OTHER, SELFPAY ==
[2023-04-27 16:19] LABS: AST(SGOT) 18 U/L (15-37); Alanine Aminotransfer ALT/SGPT 39 U/L (13-56); Albumin, Serum 4.1 g/dL (3.2-5.0); Alkaline Phosphatase 80 U/L (45-117); Bilirubin, Direct 0.28 mg/dL (0.00-0.30); Cholesterol 124 mg/dL (200); Globulin 3.7 g/dL (2.2-4.2); High Density Lipoprotein 51 mg/dL; Protein, Total 7.8 g/dL (6.4-8.2); Triglycerides 116 mg/dL; Very Low Density Lipoprotein 23 mg/dL (5-40)
== END | disposition home or self-care (01) ==
PROVIDERS: PCP Family Medicine; Referring Provider Nurse Practitioner Family; Visit Provider Nurse Practitioner Family
DX: E78.2 Mixed hyperlipidemia (principal); Z95.1 Presence of aortocoronary bypass graft
CPT/HCPCS: 36415; 80061; 80076

== ENCOUNTER → 2023-10-07 | Outpatient (CLI) | payer OTHER, SELFPAY ==
--- NOTE | 2023-10-07 14:15 | US_ITS ---
EXAM: US SOFT TISSUES HEAD AND NECK, THYROID CLINICAL INDICATION: Thyromegaly, multiple thyroid nodules TECHNIQUE: Grayscale and color doppler imaging was performed of the thyroid gland. COMPARISON: 10/04/2022. FINDINGS: LEFT THYROID LOBE: Complex predominantly solid mass measuring 5.0 x 3.3 x 4 cm left lobe of the thyroid is isoechoic, wider than tall mildly lobulated with macrocalcifications, no peripheral calcifications and no punctate calcifications. It is not significantly changed in size since the previous examination. The left lobe of thyroid lobe measures 7.2 x 4.3 x 3.5 cm. RIGHT THYROID LOBE: Solid heterogeneous isoechoic nodule measuring 1.6 x 1.2 x 1.3 cm right lobe of the thyroid is wider than tall, smooth, without echogenic foci. Solid heterogeneous isoechoic to hypoechoic nodule measuring 3.0 x 2.2 x 1.5 cm right lobe of the thyroid is wider than tall, smooth, and without echogenic foci. It is not significantly changed compared to the prior examination. Solid very hypoechoic nodule measuring 6 x 4 x 5 mm right lobe of the thyroid is wider than tall, smooth, without echogenic foci. The right lobe of thyroid lobe measures 6.5 x 2.4 x 1.7 cm. ISTHMUS: Unremarkable. No thyroid nodules are present. The isthmus measures 0.5 cm in thickness. US/Thyroid IMPRESSION: 1. Complex predominantly solid mass measuring 5.0 x 3.3 x 4 cm left lobe of the thyroid is isoechoic, wider than tall mildly lobulated with macrocalcifications, no peripheral calcifications and no punctate calcifications. It is not significantly changed in size since the previous examination. TI-RADS points: 6. TI-RADS category: TR4. This nodule is moderately suspicious. The patient has already undergone fine-needle aspiration of this nodule 10/11/2022. 2. Solid heterogeneous isoechoic nodule measuring 1.6 x 1.2 x 1.3 cm right lobe of the thyroid is wider than tall, smooth, without echogenic foci. TI-RADS points: 3. TI-RADS category: TR3. This nodule is mildly suspicious. Recommend follow-up thyroid ultrasounds at 2 and 4 years. 3. Solid heterogeneous isoechoic to hypoechoic nodule measuring 3.0 x 2.2 x 1.5 cm right lobe of the thyroid is wider than tall, smooth, and without echogenic foci. It is not significantly changed compared to the prior examination. TI-RADS points: 3. TI-RADS category: TR3. This nodule is mildly suspicious. Recommend follow-up thyroid ultrasounds at 2 and 4 years. 4. Solid very hypoechoic nodule measuring 6 x 4 x 5 mm right lobe of the thyroid is wider than tall, smooth, without echogenic foci. TI-RADS points: 5. TI-RADS category: TR4. This nodule is moderately suspicious but no FNA or follow-up is necessary given the small size of this nodule. Electronically Signed: Ifeanyi Hurt MD at 6:47 EST ,
== END | disposition home or self-care (01) ==
PROVIDERS: PCP Nurse Practitioner Family; Referring Provider Surgery; Visit Provider Surgery
DX: E04.2 Nontoxic multinodular goiter (principal)
CPT/HCPCS: 76536

== ENCOUNTER → 2024-01-25 | Outpatient (CLI) | payer OTHER, SELFPAY ==
[2024-01-25 11:06] LABS: AST(SGOT) 20 U/L (15-37); Alanine Aminotransfer ALT/SGPT 42 U/L (13-56); Albumin, Serum 3.7 g/dL (3.2-5.0); Alkaline Phosphatase 91 U/L (45-117); CPK Total, Creatine Kinase 50 U/L (26-192); Cholesterol 114 mg/dL (200); Globulin 3.6 g/dL (2.2-4.2); High Density Lipoprotein 49 mg/dL; Protein, Total 7.3 g/dL (6.4-8.2); Triglycerides 72 mg/dL; Very Low Density Lipoprotein 14 mg/dL (5-40)
== END | disposition home or self-care (01) ==
LOC: LAB 09:53
PROVIDERS: PCP Nurse Practitioner Family; Referring Provider Internal Medicine Cardiovascular Disease; Visit Provider Internal Medicine Cardiovascular Disease
DX: R06.00 Dyspnea, unspecified (principal); I25.10 Atherosclerotic heart disease of native coronary artery without angina pectoris; I25.2 Old myocardial infarction; I44.7 Left bundle-branch block, unspecified; R00.2 Palpitations; Z95.1 Presence of aortocoronary bypass graft; E78.2 Mixed hyperlipidemia
CPT/HCPCS: 36415; 80061; 80076; 82550

== ENCOUNTER 2024-02-22 08:51 | Emergency (ER) | payer OTHER, SELFPAY ==
[2024-02-22] VITALS (7 sets, daily range): BP systolic 135–164; BP diastolic 74–91; PULSE 69–103; RESP 15–19; TEMP 36.6; O2SAT 96–100; BMI 31.4
--- NOTE | 2024-02-22 09:10 | EKG12_ITS ---
Test Reason : CP Blood Pressure : / mmHG Vent. Rate : 083 BPM Atrial Rate : 083 BPM P-R Int : 154 ms QRS Dur : 148 ms QT Int : 410 ms P-R-T Axes : 034 024 102 degrees QTc Int : 481 ms Normal sinus rhythm Left bundle branch block Confirmed by JOSE JACKSON, RAFAL ([id number]), graphics editor LANIE DUNAWAY ([id number]) on 02/23/2024 11:33:18 AM Referred By: ES/ Confirmed By:RAFAL GARCIA MD
--- NOTE | 2024-02-22 09:13 | RAD_ITS ---
STUDY: X-RAY CHEST REASON FOR EXAM: Female, 63 years old. Chest pain TECHNIQUE: Single AP portable view of the chest. COMPARISON: Comparison is made with prior study dated June 14, 2022. FINDINGS: EKG electrodes are seen. The lungs are clear and expanded. There is no demonstrated pleural abnormality. Sternal cerclage wires and vascular clips are present from a prior sternotomy and coronary artery bypass graft procedure (CABG). Normal mediastinum and adrian. Normal visualized pulmonary arteries. Normal visualized aortic arch and descending thoracic aorta. There are diffuse degenerative changes of the visualized thoracic spine. Calcific tendinitis of the right shoulder. There is no demonstrated abnormality of the visualized soft tissue structures of the upper abdomen. RAD/Chest 1 View (Portable) IMPRESSION: No acute abnormality is seen. Electronically Signed: Kanu Hahn MD at 9:30 EDT ,
[2024-02-22] MEDS: Aspirin 81 MG TAB.CHEW 324 MG PO (09:18)
--- NOTE | 2024-02-22 09:22 | ED.VIS.CHEST ---
HPI History of Present Illness Chief Complaint: Chest Pain Informant: patient Onset/Context/Timing Onset: Yesterday Timing: Intermittent Associated Symptoms: Negative for Nausea, Vomiting, Diaphoresis or Dyspnea Narrative Narrative: 63-year-old female presenting with intermittent left arm pain. She states this occasionally goes into her neck. She denies chest pain or shortness of breath. States symptoms usually last approximately 1 minute. She denies association with exertion. Denies nausea, vomiting, diaphoresis. She has history of CABG, hypertension, hyperlipidemia, smoking. 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 Vazquez. Last stress test was 2021. She states she does a lot of heavy lifting but does not recall a specific injury. Prior Similar Symptoms: No Recent Illness/Hospitalization: No CVD Risk Factors: Positive for Hypertension, Diabetes, Hypercholesterolemia and Smoking PE Risk Factors: Negative for Recent Travel/Surgery, Recent Immobilization, Prior DVT or PE, Cancer or OCP + Smoking + >/=35 PFSH PFSH Medical History Atherosclerotic heart disease of [place] coronary artery without angina pectoris CAD (coronary artery disease) Chronic cough Dyspnea Essential hypertension History of non-ST elevation myocardial infarction (NSTEMI) Hyperlipidemia Hypersomnia Hypertension Knee pain LBBB (left bundle branch block) Left thyroid nodule Mixed hyperlipidemia Multiple thyroid nodules JAUN (obstructive sleep apnea) JAUN (obstructive sleep apnea) Palpitations PVC (premature ventricular contraction) Right hip pain Right knee pain Right low back pain Shoulder pain Thyromegaly Tobacco abuse Type 2 diabetes mellitus URI, acute Home Medications aspirin 81 mg tablet,delayed release (Adult Low Dose Aspirin) 81 mg PO DAILY 01/25/18 [History Last Taken 02/22/24] atorvastatin 40 mg tablet 40 mg PO QDAY #90 tabs 04/19/23 [Rx Last Taken 02/21/24] carvedilol 6.25 mg tablet 6.25 mg PO BID #180 tabs 04/19/23 [Rx Last Taken 02/22/24] empagliflozin 25 mg tablet (Jardiance) See Rx Instructions .Route .COMPLEX #90 tabs 04/19/23 [Rx Last Taken 02/22/24] losartan 25 mg tablet 25 mg PO BID #180 tabs 04/19/23 [Rx Last Taken 02/22/24] tirzepatide 7.5 mg/0.5 mL subcutaneous pen injector (Joãoro) 7.5 mg subcut QWEEK 11/16/23 [History Last Taken 02/20/24] Allergy/AdvReac Type Severity Reaction Status Date / Time verapamil [From Isoptin] Allergy Severe confusion Verified 02/22/24 08:53 Family History Mother Degenerative joint disease Hypertension Diabetes Hyperlipidemia Grandfather Myocardial infarction Surgical History H/O hysterectomy with unilateral oophorectomy History of section History of coronary artery bypass graft x 3 (~03/29/14) Social History Smoking Status: Current every day smoker tobacco type: cigarettes Tobacco: How many years used: 10 alcohol intake: current alcohol intake frequency: a few times a week Alcohol type: beer details: 2-3 per week substance use type: does not use caffeine: Yes Type: coffee Number of servings: 4 what type of physical activity do you participate in: none ROS ROS ED Constitutional Constitutional ED: Denies fever(s) Eyes Eyes: Denies change in vision ENT ENT ED: Denies rhinorrhea or sore throat Cardiovascular Cardiovascular: Reports other Details: Left arm pain ; Denies chest pain or palpitations Respiratory/Chest Respiratory/Chest: Reports cough and other Details: Chronic cough ; Denies dyspnea Gastrointestinal Gastrointestinal: Denies abdominal pain, diarrhea, nausea or vomiting Genitourinary Genitourinary ED: Denies dysuria Musculoskeletal Musculoskeletal: Denies myalgias Integumentary Denies rash Neurologic Neurologic: Denies headache(s) Psychiatric Psychiatric: Denies suicidal thoughts EXAM Physical Exam Const Vital Signs: 02/22/24 08:51 02/22/24 09:22 02/22/24 09:51 Temperature 97.8 F Temperature Source Temporal Pulse Rate 103 H 82 Respiratory Rate 16 16 Respiratory Effort Normal Non-Labored Respiratory Pattern Normal Blood Pressure 161/91 H 140/79 H Blood Pressure Mean 114 99 Pulse Ox 100 97 Oxygen Delivery Method Room Air Room Air 02/22/24 10:00 02/22/24 11:00 02/22/24 12:00 Temperature Temperature Source Pulse Rate 70 69 74 Respiratory Rate 18 16 15 Respiratory Effort Respiratory Pattern Blood Pressure 137/75 H 135/75 H 146/75 H Blood Pressure Mean 95 95 98 Pulse Ox 96 97 96 Oxygen Delivery Method Room Air Room Air Room Air 02/22/24 13:00 Temperature Temperature Source Pulse Rate 69 Respiratory Rate 19 H Respiratory Effort Respiratory Pattern Blood Pressure 157/76 H Blood Pressure Mean 103 Pulse Ox 97 Oxygen Delivery Method Room Air Positive well nourished and well developed General Appearance ED: well developed HEENT Reports normocephalic and head/scalp atraumatic Eyes PERRL and EOMs intact bilaterally Neck supple General: Negative for tenderness Chest Wall inspection of chest normal Resp normal respiratory effort and clear to auscultation bilaterally Cardio regular rate and regular rhythm GI non-tender and non-distended Palpation: soft; Negative for guarding or rebound tenderness present no CVA tenderness Extremity normal to inspection Neuro oriented x3 Sensorium / Orientation: alert Psych mental status grossly normal Skin no rashes or lesions noted Heart Score History: Slightly/Non-Suspicious ECG: Nonspecific Repolarization Age: >45 - <65 years Risk Factors: >/= 3 Risk Factors or History of CAD Troponin: </= Normal Limit Score: 4 MDM MDM MDM Narrative Medical decision making narrative: Patient was given aspirin. EKG is sinus rhythm, left bundle branch block, similar to previous. Differential diagnosis includes ACS, musculoskeletal pain, pneumonia, COPD. CBC, chemistries unremarkable other than glucose 172. Troponin negative. Delta troponin negative. Chest x-ray shows no acute process. Patient is resting comfortably on reevaluation. She is pain-free. She is requesting discharge home. Discussed with Dr. León, recommend outpatient follow-up. Patient is agreeable with this plan. Advised return to the ED for any worsening complaints. Lab Data Attestation: I reviewed the patient's lab results. Labs: Laboratory Results - last 24 hr 02/22/24 02/22/24 09:15 11:15 WBC 7.7 RBC 5.05 Hgb 15.9 H Hct 47.1 H MCV 93.3 MCH 31.5 MCHC 33.8 RDW Std Deviation 42.8 RDW Coeff of Nellie 12.5 Plt Count 307 MPV 8.7 Immature Gran % (Auto) 0.400 Neut % (Auto) 65.4 Lymph % (Auto) 24.0 Cole % (Auto) 6.7 Eos % (Auto) 3.1 Baso % (Auto) 0.4 Absolute Neuts (auto) 5.0 Absolute Lymphs (auto) 1.85 Nucleated RBC % 0 Sodium 139 Potassium 4.1 Chloride 110 H Carbon Dioxide 25.0 Anion Gap 4 L BUN 20 H Creatinine 0.76 Estim Creat Clear Calc 77.06 Est GFR (MDRD) Af Amer 99 Est GFR (MDRD) Non-Af 82 BUN/Creatinine Ratio 26.4 H Glucose 172 H Calcium 9.6 Troponin I High Sens 5 5 Radiography Diagnostic Testing: Clinical Impression(s) from Imaging Studies Chest X-Ray 02/22/24 09:13 IMPRESSION: No acute abnormality is seen. Electronically Signed: Kanu Hahn MD at 9:30 EDT , EKG Initial EKG: Attestation: I personally reviewed and interpreted this EKG as follows: Interpretation: Sinus Rhythm and LBBB Prior: Unchanged Discharge Plan Triage Chief Complaint: Chest Pain ED Provider: Karina Ruiz Dx/Rx/DC Orders Clinical Impression: Arm pain, left Instructions: ED Chest Pain, Uncertain Cause Prescriptions: No Action aspirin [Adult Low Dose Aspirin] 81 mg tablet,delayed release (DR/EC) 81 mg PO DAILY losartan 25 mg tablet 25 mg PO BID Qty: 180 4RF Jardiance 25 mg tablet See Rx Instructions .ROUTE .COMPLEX Qty: 90 1RF Dose Instruction: TAKE 1 TABLET BY MOUTH EVERY DAY IN THE MORNING Rx Instructions: TAKE 1 TABLET BY MOUTH EVERY DAY IN THE MORNING carvedilol 6.25 mg tablet 6.25 mg PO BID Qty: 180 4RF Rx Instructions: must administer with a meal/food atorvastatin 40 mg tablet 40 mg PO QDAY Qty: 90 3RF Rx Instructions: please fill as 90 days if allowed Mounjaro 7.5 mg/0.5 mL pen injector 7.5 mg subcut QWEEK Primary Care Provider: Nish Bahena Referrals: Nish Bahena, [employer] [Primary Care Provider] - Disposition Disposition: Home, Self Care
[2024-02-22 09:36] LABS: Absolute Lymphocyte Count 1.85 X10^3/uL (0.83-4.51); Basophil# 0.03 X10^3/uL; Basophil% 0.4 % (0-1); Eosinophil# 0.24 X10^3/uL; Eosinophils% 3.1 % (0-5); Hematocrit 47.1 % (37-47); Hemoglobin 15.9 g/dL (12.0-15.0); Lymphocyte # 1.85 X10^3/ul (0.83-4.51); Mean Corp Hgb Conc 33.8 g/dL (32-36); Mean Corpuscular Hgb 31.5 pg (27.0-32.0); Mean Corpuscular Volume 93.3 fL (81-99); Mean Platelet Vol. 8.7 fl (6.2-12.0); Monocyte# 0.52 X10^3/uL; Monocyte% 6.7 % (0-10); NRBC Flagged by Analyzer 0 % (0-5); Neutrophil # 5.04 X10^3/uL (2.7-7.7); Neutrophil % 65.4 % (47-70); Platelet Count 307 K/mm3 (150-450); RBC Distribution Width CV 12.5 % (11.6-14.6); RBC Distribution Width SD 42.8 fl (35.1-43.9); Red Blood Count 5.05 M/mm3 (4.2-5.4); White Blood Count 7.7 K/mm3 (4.4-11.0)
[2024-02-22 09:55] LABS: Anion Gap 4 (5-15); BUN 20 mg/dL (7-18); BUN/Creat Ratio 26.4 RATIO (10-20); Calcium,Total 9.6 mg/dL (8.5-10.1); Chloride 110 mmol/L (98-107); Creatinine, Serum 0.76 mg/dL (0.55-1.02); EST Glomerular Filtration Rate 82 mL/min (>60); Est Glom Filt Rate - Afr Amer 99 mL/min (>60); Estimated Creatinine Clearance 77.06 ml/min; Glucose 172 mg/dL (74-106); Potassium 4.1 mmol/L (3.5-5.1); Sodium Level 139 mmol/L (136-145); Troponin-I HS (w/2H Reflex) 5 pg/mL (3.0-54.0)
[2024-02-22 11:30] LABS: Reflex Troponin-HS? (from REC) Y
[2024-02-22 11:55] LABS: Troponin-I HS 5 pg/mL (3.0-54.0)
== END 2024-02-22 14:00 | disposition home or self-care (01) ==
PROVIDERS: Emergency Provider Emergency Medicine; PCP Nurse Practitioner Family; Visit Provider Emergency Medicine
DX: M79.602 Pain in left arm (principal); E11.9 Type 2 diabetes mellitus without complications; I44.7 Left bundle-branch block, unspecified; I10 Essential (primary) hypertension; Z95.1 Presence of aortocoronary bypass graft; E78.2 Mixed hyperlipidemia; I25.10 Atherosclerotic heart disease of native coronary artery without angina pectoris; Z79.899 Other long term (current) drug therapy; F17.210 Nicotine dependence, cigarettes, uncomplicated
CPT/HCPCS: 71045; 80048; 84484; 85025; 93005; 99284; A4216

== ENCOUNTER 2024-03-05 14:33 | Emergency (ER) | payer OTHER, SELFPAY ==
[2024-03-05 14:34] VITALS: BP 138/82; PULSE 72; RESP 16; TEMP 36.6; O2SAT 98; BMI 31.1
== END 2024-03-05 15:16 | disposition left against medical advice (07) ==
LOC: ED 15:26
PROVIDERS: PCP Nurse Practitioner Family
DX: Z53.21 Procedure and treatment not carried out due to patient leaving prior to being seen by health care provider (principal)

== ENCOUNTER → 2024-03-28 | Outpatient (CLI) | payer OTHER, SELFPAY ==
--- NOTE | 2024-03-28 14:25 | NEURO_ITS ---
NCS and/or EMG Patient Report Ordering Doctor: Nish Bahena [facility] DATE OF SERVICE: 03/28/24 Adina presents with numbness and tingling in the left hand and arm. Electrodiagnostic findings: Left median motor nerve demonstrates normal distal latency, amplitude with reduced conduction velocity. Left ulnar motor response demonstrates normal distal latency and amplitude with a nearly 20% drop in conduction across the elbow. Normal median ulnar F?waves. Prolonged left median sensory latency at the wrist. Normal ulnar and radial sensory responses. Needle EMG testing was performed the left upper limb. All muscles tested showed no evidence of denervation with normal motor unit action potentials. Electrodiagnostic impression: This is an abnormal study in the left upper limb 1. Electrodiagnostic findings demonstrate left-sided median mononeuropathy. This is consistent with a mild left carpal tunnel syndrome 2. Electrodiagnostic findings suggestive of left-sided ulnar neuropathy, consistent with a mild left cubital tunnel syndrome 3. No electrodiagnostic evidence is noted for cervical radiculopathy. Multi Select Codes Neurology Neurology Interp Codes: 51496-95 Musc test done w/n test comp (interp) and 52943-63 Nrv cndj test 7-8 studies (interp)
== END | disposition home or self-care (01) ==
PROVIDERS: PCP Nurse Practitioner Family; Referring Provider Nurse Practitioner Family; Visit Provider Nurse Practitioner Family
DX: R20.2 Paresthesia of skin (principal)
CPT/HCPCS: 95886; 95910

== ENCOUNTER → 2024-08-30 | Outpatient (CLI) | payer OTHER, SELFPAY | END | disposition home or self-care (01) | LOC: OPBD 15:41 | PROVIDERS: PCP Nurse Practitioner Family; Referring Provider Nurse Practitioner Family; Visit Provider Nurse Practitioner Family | DX: Z78.0 Asymptomatic menopausal state (principal) | CPT/HCPCS: 77080 ==

== ENCOUNTER → 2024-09-06 | Outpatient (CLI) | payer OTHER, SELFPAY ==
[2024-09-06 17:00] LABS: Absolute Neutrophil Count 4.9 X10^3/uL (2.0-7.7); Basophil# 0.05 X10^3/uL; Basophil% 0.6 % (0-1); Eosinophil# 0.22 X10^3/uL; Eosinophils% 2.6 % (0-5); Hematocrit 50.6 % (37-47); Hemoglobin 16.9 g/dL (12.0-15.0); Lymphocyte % 29.1 % (19-41); Mean Corp Hgb Conc 33.4 g/dL (32-36); Mean Corpuscular Hgb 31.9 pg (27.0-32.0); Mean Corpuscular Volume 95.5 fL (81-99); Mean Platelet Vol. 9.1 fl (6.2-12.0); Monocyte# 0.84 X10^3/uL; Monocyte% 9.8 % (0-10); NRBC Flagged by Analyzer 0 % (0-5); Neutrophil # 4.94 X10^3/uL (2.7-7.7); Neutrophil % 57.6 % (47-70); Platelet Count 255 K/mm3 (150-450); RBC Distribution Width CV 12.7 % (11.6-14.6); RBC Distribution Width SD 45.6 fl (35.1-43.9); White Blood Count 8.6 K/mm3 (4.4-11.0)
[2024-09-06 17:25] LABS: Microalbumin,Random Urine < 5.0 mg/L (NO RANGE EST.)
[2024-09-06 17:27] LABS: AST(SGOT) 16 U/L (15-37); Alanine Aminotransfer ALT/SGPT 45 U/L (13-56); Alkaline Phosphatase 84 U/L (45-117); Anion Gap 7 (5-15); BUN 24 mg/dL (7-18); BUN/Creat Ratio 33.8 RATIO (10-20); Calcium,Total 9.7 mg/dL (8.5-10.1); Chloride 104 mmol/L (98-107); Cholesterol 129 mg/dL (200); Creatinine, Serum 0.71 mg/dL (0.55-1.02); EST Glomerular Filtration Rate 88 mL/min (>60); Est Glom Filt Rate - Afr Amer 107 mL/min (>60); Glucose 119 mg/dL (74-106); High Density Lipoprotein 55 mg/dL; Potassium 4.1 mmol/L (3.5-5.1); Sodium Level 137 mmol/L (136-145); Triglycerides 112 mg/dL; Very Low Density Lipoprotein 22 mg/dL (5-40)
== END | disposition home or self-care (01) ==
LOC: VSLAB 15:38
PROVIDERS: PCP Nurse Practitioner Family; Visit Provider Nurse Practitioner Family
DX: E11.9 Type 2 diabetes mellitus without complications (principal)
CPT/HCPCS: 36415; 80053; 80061; 82043; 84443; 85025

== ENCOUNTER → 2024-10-01 | Outpatient (CLI) | payer OTHER, SELFPAY ==
--- NOTE | 2024-10-01 16:23 | US_ITS ---
EXAM: US SOFT TISSUES HEAD AND NECK, THYROID CLINICAL INDICATION: Surveillance -- nodule TECHNIQUE: Greyscale and color doppler imaging was performed of the thyroid gland. COMPARISON: Thyroid ultrasound, 10/07/2023 and 10/04/2022. FINDINGS: LEFT THYROID LOBE: The left thyroid lobe measures 7.5 x 4.1 x 2.9 cm. The left thyroid lobe is diffusely heterogenous. There is a 5.6 cm left thyroid nodule. This nodule is solid or almost completely solid, hyperechoic or isoechoic, [id number], margins cannot be determined and contains microcalcifications. TI-RADS points: 4. TI-RADS category: TR4. This nodule is moderately suspicious. Recommend FNA evaluation. RIGHT THYROID LOBE: The right thyroid lobe measures 6.9 x 2.6 x 2.0 cm. The right thyroid lobe is diffusely heterogenous. There is a 1.4 cm right thyroid nodule. This nodule is solid or almost completely solid, hyperechoic or isoechoic, [id number], ill-defined and contains no echogenic foci. TI-RADS points: 3. TI-RADS category: TR3. This nodule is mildly suspicious but no FNA or follow-up is necessary given the small size of this nodule. There is a 3.0 cm right thyroid nodule. This nodule is solid or almost completely solid, hyperechoic or isoechoic, [id number], ill-defined and contains no echogenic foci. TI-RADS points: 3. TI-RADS category: TR3. This nodule is mildly suspicious. Recommend FNA evaluation. There is a 0.6 cm right thyroid nodule. This nodule is spongiform. TI-RADS points: 0. TI-RADS category: TR1. This nodule is benign and no FNA or follow-up is necessary. ISTHMUS: Thyroid isthmus measures 0.2 cm. No thyroid nodules are present. US/Thyroid IMPRESSION: 1. Thyromegaly. 2. Bilateral thyroid nodules for which FNA is recommended. Although prior FNA was performed of at least the left side thyroid nodule, there has been interval increase in size and a repeat FNA is recommended if definitive management is not performed. Electronically Signed: Viral Soler, at 20:36 EST ,
== END | disposition home or self-care (01) ==
PROVIDERS: PCP Nurse Practitioner Family; Referring Provider Surgery; Visit Provider Surgery
DX: E04.1 Nontoxic single thyroid nodule (principal)
CPT/HCPCS: 76536

== ENCOUNTER → 2025-07-06 | Outpatient (CLI) | payer OTHER, SELFPAY ==
--- OUTSIDE RECORDS SUMMARY | 2025-07-06 08:45 | XMS RPT_ITS | CCD ---
Author Organization [facility] Care Team Providers Care Wallpaper Cleaner Name Role Phone Lanie Monet Admitting Unavailable Lanie Monet Attending Unavailable No Doctor Assigned, Nodr Primary Care Unavail able Desmond Locke Primary Care Provider [phone] Desmond Locke Primary Care Provider Otoniel Matos Primary Care Provider [phone] Dr. Desmond Locke Primary Care Provider [phone] Dr. Desmond Locke Referring Provider Josef CIGAR BINDER, CIGAR BINDER-C Nish Attending Provider Chayito Howell Attending Provider Unavailable Dr. Herminio Anand Attending Provider [phone] Otoniel Matos DO Primary Care Provider Dr. Desmond Locke Primary Care Provider [phone] Dr. Desmond Locke Referring Provider Josef CIGAR BINDER, CIGAR BINDER-C Nish Attending Provider Chayito Howell Attending Provider Unavailable Dr. Herminio Anand Attending Provider Ashleigh NOONAN, CIGAR BINDER-C [facility] Unavailab Dr. Desmond Toro Primary Care Provider Dr. Desmond Locke Referring Provider Josef CIGAR BINDER, CIGAR BINDER-C Nish Attending Provider Dr. Ifeanyi Mirza Attending Provider Dr. Desmond Locke Primary Care Provider [phone] Dr. Desmond Locke Referring Provider Dr. Desmond Locke Primary Care Provider [phone] Dr. Desmond Locke Referring Provider [phone] Bahena CIGAR BINDER, CIGAR BINDER-C Nish Attending Provider [phone] Dr. Ifeanyi Mirza Attending Provider Jonathan AGUIRRE, [place] Manny Arenas Attending Provider Dr. Alexys León Attending Provider Dr. Desmond Locke Primary Care Provider Dr. Desmond Locke Referring Provider Bahena CIGAR BINDER, CIGAR BINDER-C Nish Attending Provider [phone] CIGAR BINDER, CIGAR BINDER-C Marky Blancas Attending Provider [phone] Desmond Locke Referring Provider [phone] Cliff Vazquez Attending Provider Bahena VSC, CIGAR BINDER-C Nish Primary Care Provider Bahena CIGAR BINDER-C, Nish Primary Care Provider Bahena CIGAR BINDER-C, Nish Referring Provider Cliff NOONAN-CKellie Attending Provider Nish Bahena Attending Unavailable Bahena, Nish Referring Unavailable Bahena, Nish Primary Care Unavailable Josef, Nish Primary Care Unavailable Ifeanyi Mirza Attending Unavailable Ifeanyi Mirza Referring Unavailable Bahena, Nish Referring Unavailable Bahena, Nish Primary Care Unavailable Kellie Coronado NP Attending Unavailable Bahena, Nish Referring Unavailable Bahena, Nish Primary Care Unavailable Ifeanyi Mirza Attending Unavailable Bahena, Nish Primary Care Unavailable Bahena, Nish Attending Unavailable Allergies Allergy Classification Reported Allergen(s) Allergy Type Date of Onset Reaction(s) Facility (1 source) No Known Medication Allergies; Translations: [No Known Medication Allergies] Propensity to adverse reactions to drug (disorder) [facility] Repository (17 sources) Verapamil Drug Allergy 6 Other (See Comments) [facility] (1 source) Verapamil Drug Allergy 5 [facility] Repository Medications Current Medications Medication Drug Class(es) Dates Sig (Normalized) Sig (Original) acetaminophen 325 mg oral tablet (5 sources) Start: 09-17-2019 take 2 tablets by mouth every four hours as needed acetaminophen 325 MG tablet Take 2 tablets by mouth every 4 hours as needed for Mild Pain. 50 tablet 1 09/17/2019 Active Start: 09-17-2019 acetaminophen (TYLENOL) tablet 1,000 mg aspirin 81 mg delayed release oral tablet (20 sources) Platelet Aggregation Inhibitor, Nonsteroidal Anti-inflammatory Drug Start: 09-17-2019 aspirin EC [address] Take 1 table twice a day for 14 days. This medication is for blood clot prevention. Then resume daily dose. 28 tablet 0 09/17/2019 Active Start: 01-25-2018 Aspirin (Adult Low Dose Aspirin) 81 mg tablet,delayed release (DR/EC) Active 81 mg PO DAILY 0 January 25, 2018 12:00am celecoxib 200 mg oral capsule (4 sources) Nonsteroidal Anti-inflammatory Drug Start: 09-17-2019 End: 10-01-2019 take 1 capsule by mouth twice daily celecoxib 200 MG Cap capsule Take 1 capsule by mouth 2 times daily for 14 days. 28 capsule 0 09/17/2019 Active cephalexin 500 mg oral capsule (1 source) Cephalosporin Antibacterial Start: 09-17-2019 End: 09-18-2019 take 1 capsule by mouth every six hours in the evening cephALEXin 500 MG Cap capsule Take 1 capsule by mouth every 6 hours for 3 doses. Start at 2 pm today. 3 capsule 0 09/17/2019 09/18/2019 Active chlorhexidine gluconate 40 mg/ml medicated liquid soap (8 sources) Start: 02-27-2019 chlorhexidine 4 % Liquid Indications: Arthralgia, unspecified joint Entire body(Exclude face) daily x 5 days 1 Bottle 0 02/27/2019 Active Start: 02-27-2019 chlorhexidine 4 % Liquid Indications: Arthralgia, unspecified joint Entire body(Exclude face) daily x 5 days 1 Bottle 0 02/27/2019 Active docusate sodium 100 mg oral capsule (4 sources) Start: 09-17-2019 take 1 capsule by mouth twice daily docusate 100 MG Cap capsule Take 1 capsule by mouth 2 times daily. 60 capsule 0 09/17/2019 Active losartan potassium 25 mg oral tablet (20 sources) Angiotensin 2 Receptor Amy Start: 07-14-2022 End: 04-19-2023 take 1 tablet by mouth twice daily Losartan 25 mg tablet Active 25 mg PO TWICE A DAY 180 4 April 19, 2023 4:48pm Start: 07-02-2020 End: 07-14-2022 take 1 tablet by mouth once daily Losartan 25 mg tablet Discontinued 25 mg PO DAILY 30 0 July 06, 2021 5:06pm July 23, 2021 4:37pm mupirocin 0.02 mg/mg topical ointment (8 sources) RNA Synthetase Inhibitor Antibacterial Start: 02-27-2019 mupirocin 2 % Ointment ointment Indications: Arthralgia, unspecified joint Each nostril BID x 5 days 1 Tube 0 02/27/2019 Active therapeutic multivitamin-fur examiner als Tab (4 sources) Start: 09-17-2019 take 1 tablet by mouth at bedtime therapeutic multivitamin-fur examiner als Tab Take 1 tablet by mouth at bedtime. 30 tablet 0 09/17/2019 Active Tirzepatide (Mounjaro) 7.5 mg/0.5 mL pen injector (4 sources) Start: 11-16-2023 Tirzepatide (Mounjaro) 7.5 mg/0.5 mL pen injector Active 7.5 mg SC EVERY WEEK November 16, 2023 1:00am Start: 11-16-2023 Tirzepatide (M ounjaro) 7.5 mg/0.5 mL pen injector Active 7.5 MG SC EVERY WEEK November 16, 2023 1:00am Completed/Discontinued Medications Medication Drug Class(es) Dates Sig (Normalized) Sig (Original) acetaminophen 325 mg / HYDROcodone bitartrate 5 mg oral tablet (11 sources) Opioid Agonist Start: 01-26-2023 End: 04-11-2023 Hydrocodone-Acetami nophen 5-325 mg tablet Discontinued 1 {tbl} PO EVERY 6 HOURS NEEDED as needed for Pain 12 3 0 January 26, 2023 April 11, 2023 9:28am Acute pain of right hip Pain in right hip Start: 01-26-2023 End: 04-11-2023 take 1 tablet by mouth every six hours as needed Hydrocodone-Acetaminophen Discontinued 1 TABLET PO EVERY 6 HOURS NEEDED 12 3 January 26, 2023 April 11, 2023 9:28am Start: 09-17-2019 End: 09-24-2019 take 1 tablet by mouth once daily as needed hydroCODone-acetaminophen 5-325 MG Tab tablet Indications: Acute postoperative pain of left knee Take 1-2 tablets by mouth every 6 hours as needed for up to 7 days. Do not take over 4000mg acetaminophen daily. 20 tablet 0 09/17/2019 Active atorvastatin 40 mg oral tablet (20 sources) HMG-CoA Reductase Inhibitor Start: 01-25-2018 End: 04-19-2023 take 1 tablet by mouth once daily Atorvastatin 40 mg tablet Discontinued 40 mg PO daily 60 0 March 26, 2020 3:39pm April 01, 2020 4:50pm azithromycin 250 mg oral tablet (15 sources) Macrolide Antimicrobial Start: 08-21-2018 End: 02-28-2019 take 2-5 tablets by mouth once daily Azithromycin 250 mg tablet Discontinued 0 PO .COMPLEX 6 0 August 21, 2018 12:00am February 28, 2019 3:40pm take 500 mg today (day 1), then 250 mg for 4 days (days 2-5) PO benzonatate 100 mg oral capsule (15 sources) Non-narcotic Antitussive Start: 08-21-2018 End: 02-28-2019 take 2 capsules by mouth three times daily as needed for cough Benzonatate 100 mg capsule Discontinued 200 mg PO THREE TIMES A DAY as needed for cough 30 0 August 21, 2018 12:00am February 28, 2019 3:40pm Acute upper respiratory infection, unspecified Start: 08-21-2018 End: 02-28-2019 take 200 mg by mouth three times daily Benzonatate Discontinued 200 MG PO THREE TIMES A DAY August 21, 2018 12:00am February 28, 2019 3:40pm carvedilol 6.25 mg oral tablet (20 sources) alpha-Adrenergic Amy, beta-Adrenergic Amy Start: 07-14-2022 End: 04-19-2023 take 1 tablet by mouth twice daily at mealtime Carvedilol 6.25 mg tablet Discontinued 6.25 mg PO TWICE A DAY 180 4 July 14, 2022 2:50pm April 19, 2023 4:50pm must administer with a meal/food Start: 01-25-2018 End: 07-14-2022 take 1 tablet by mouth once daily Carvedilol 3.125 mg tablet Discontinued 3.125 mg PO daily 90 4 March 27, 2019 12:46pm April 01, 2020 4:50pm take 1 tablet by jennifer twice daily carvedilol (COREG) 3.125 MG tablet Take 3.125 mg by mouth 2 (two) times a day. 0 Active doxycycline hyclate 100 mg oral tablet (15 sources) Tetracycline-class Drug Start: 03-07-2018 End: 07-20-2018 take 1 tablet by mouth twice daily Doxycycline Hyclate 100 mg tablet Discontinued 100 mg PO TWICE A DAY 20 0 March 07, 2018 12:00am July 20, 2018 1:00pm empagliflozin 25 mg oral tablet (20 sources) Sodium-Glucose Cotransporter 2 Inhibitor Start: 06-15-2022 End: 04-19-2023 take 1 tablet by mouth once daily in the morning Empagliflozin (Jardiance) 25 mg tablet Discontinued 0 .ROUTE .COMPLEX 90 1 December 14, 2022 1:29pm January 11, 2023 4:57pm TAKE 1 TABLET BY MOUTH EVERY DAY IN THE MORNING 200 actuat ipratropium bromide 0.017 mg/actuat metered dose inhaler (14 sources) Anticholinergic Start: 06-15-2022 End: 07-27-2022 Ipratropium Adel 17 mcg/actuation HFA aerosol inhaler Discontinued 1 NMA INHALATION Q8H as needed for shortness of breath or wheezing 12.9 1 June 15, 2022 12:00am July 27, 2022 4:26pm Start: 06-15-2022 End: 07-27-2022 Ipratropium Adel Disconti nued 1 INH INHALATION Q8H 12.9 June 15, 2022 12:00am July 27, 2022 4:26pm lisinopril 2.5 mg oral tablet (20 sources) Angiotensin Converting Enzyme Inhibitor Start: 01-25-2018 End: 07-02-2020 take 1 tablet by mouth once daily Lisinopril 2.5 mg tablet Discontinued 2.5 mg PO daily 60 0 March 26, 2020 3:39pm April 01, 2020 4:50pm metFORMIN hydrochloride 500 mg oral tablet (20 sources) Biguanide Start: 01-11-2023 End: 11-16-2023 take 1 tablet by mouth twice daily Metformin 500 mg tablet Discontinued 500 mg PO TWICE A DAY 180 2 April 19, 2023 4:48pm November 16, 2023 4:20pm Start: 04-01-2020 End: 01-11-2023 take 1 tablet by mouth twice daily Metformin 850 mg tablet Discontinued 850 mg PO TWICE A DAY 180 2 June 15, 2022 10:35am January 11, 2023 4:57pm Start: 02-28-2019 End: 04-01-2020 take 1 tablet by mouth twice daily Metformin 500 mg tablet Discontinued 500 mg PO TWICE A DAY 120 2 November 23, 2019 11:55am April 01, 2020 4:47pm Morphine (1 source) Opioid Agonist Start: 09-17-2019 End: 09-17-2019 take 2 mg intravenous route every hour as needed morphine injection 2 mg Nirmatrelvir-Rit onavir (11 sources) Start: 09-20-2022 End: 09-29-2022 Nirmatrelvir-Ritona vir (Paxlovid (Eua)) 300 mg (150 mg x 2)-100 mg tablets,dose pack Discontinued 0 PO .COMPLEX 30 September 20, 2022 1:00am September 29, 2022 5:10pm take TWO 150 mg tablets of nirmatrelvir with ONE 100 mg tablet of ritonavir twice daily for 5 days PO. Hold atorvastatin Start: 09-20-2022 End: 09-29-2022 Nirmatrelvir-Ritonavir (Paxl ovid (Eua)) 300 mg (150 mg x 2)-100 mg tablets,dose pack Discontinued 0 PO .COMPLEX September 20, 2022 1:00am September 29, 2022 5:10pm take TWO 150 mg tablets of nirmatrelvir with ONE 100 mg tablet of ritonavir twice daily for 5 days PO. Hold atorvastatin Start: 09-20-2022 End: 09-29-2022 Nirmatrelvir-Ritonavir (Paxl ovid (Eua)) 300 mg (150 mg x 2)-100 mg tablets,dose pack Discontinued 0 PO .COMPLEX September 20, 2022 12:00am September 29, 2022 4:10pm take TWO 150 mg tablets of nirmatrelvir with ONE 100 mg tablet of ritonavir twice daily for 5 days PO. Hold atorvastatin Start: 09-20-2022 Nirmatrelvir-R itonavir (Paxlovid (Eua)) 300 mg (150 mg x 2)- 100 mg tablets,dose pack Active 0 PO .COMPLEX September 20, 2022 12:00am take TWO 150 mg tablets of nirmatrelvir with ONE 100 mg tablet of ritonavir twice daily for 5 days PO. Hold atorvastatin 2 ml ondansetron 2 mg/ml injection (1 source) Serotonin-3 Receptor Antagonist Start: 09-17-2019 End: 09-17-2019 take 4 mg intravenous route every four hours as needed ondansetron 4mg/2ml (ZOFRAN) injection 4 mg predniSONE 20 mg oral tablet (7 sources) Start: 01-26-2023 End: 04-11-2023 take 2 tablets by mouth once daily Prednisone 20 mg tablet Discontinued 40 mg PO DAILY 8 January 26, 2023 12:00am April 11, 2023 9:28am Start: 01-26-2023 End: 04-11-2023 take 40 mg by mouth once daily Prednisone Discontinued 40 MG PO DAILY January 26, 2023 12:00am April 11, 2023 9:28am ropivacaine (NAROPIN) 1 % 400 mg, EPINEPHrine PF (ADRENALIN) 1 MG/ML 1 mg, ketorolac (TORADOL) 30 MG/ML 30 mg, cloNIDine 100 MCG/ML 182 mcg, sodium chloride 0.9% 45 mL 88.82 mL (total volume) (1 source) Start: 09-17-2019 End: 09-17-2019 ropivacaine (NAROPIN) 1 % 400 mg, EPINEPHrine PF (ADRENALIN) 1 MG/ML 1 mg, ketorolac (TORADOL) 30 MG/ML 30 mg, cloNIDine 100 MCG/ML 182 mcg, sodium chloride 0.9% 45 mL 88.82 mL (total volume) SITagliptin 100 mg oral tablet (20 sources) Dipeptidyl Peptidase 4 Inhibitor Start: 01-25-2018 End: 08-17-2022 take 1 tablet by mouth once daily Sitagliptin Phosphate (Januvia) 100 mg tablet Discontinued 100 mg PO daily 90 July 12, 2018 7:39am July 31, 2019 11:52am 1000 ml sodium chloride 9 mg/ml injection (3 sources) Start: 09-17-2019 End: 09-17-2019 sodium chloride 0.9 % irrigation Start: 09-17-2019 End: 09-17-2019 sodium chloride 0.9% IV solu tion Tirzepatide (Mounjaro) 5 mg/ 0.5 mL pen injector (20 sources) Start: 04-19-2023 End: 11-16-2023 Tirzepatide (Mounjaro) 5 mg/ 0.5 mL pen injector Discontinued 5 mg SC EVERY WEEK 6 2 April 19, 2023 4:48pm November 16, 2023 4:20pm Start: 04-19-2023 End: 11-16-2023 Tirzepatide (Mounjaro) 5 mg/ 0.5 mL pen injector Discontinued 5 MG SC EVERY WEEK 6 April 19, 2023 4:48pm November 16, 2023 4:20pm Start: 04-19-2023 Tirzepatide (M ounjaro) 5 mg/0.5 mL pen injector Active 5 MG SC EVERY WEEK 6 April 19, 2023 3:48pm Start: 04-19-2023 Tirzepatide (M ounjaro) 5 mg/0.5 mL pen injector Active 5 MG SC EVERY WEEK 6 April 19, 2023 4:48pm Start: 02-22-2023 End: 04-19-2023 Tirzepatide (Mounjaro) 5 mg/ 0.5 mL pen injector Discontinued 5 mg SC EVERY WEEK 2 2 February 22, 2023 2:32pm April 19, 2023 4:50pm Start: 02-22-2023 End: 04-19-2023 Tirzepatide (Mounjaro) 5 mg/ 0.5 mL pen injector Discontinued 5 MG SC EVERY WEEK 2 February 22, 2023 1:32pm April 19, 2023 3:50pm Start: 02-22-2023 End: 04-19-2023 Tirzepatide (Mounjaro) 5 mg/ 0.5 mL pen injector Discontinued 5 MG SC EVERY WEEK 2 February 22, 2023 2:32pm April 19, 2023 4:50pm Start: 11-29-2022 End: 02-22-2023 Tirzepatide (Mounjaro) 5 mg/ 0.5 mL pen injector Discontinued 5 mg SC EVERY WEEK 2 2 November 29, 2022 10:56am February 22, 2023 2:32pm Start: 11-29-2022 End: 02-22-2023 Tirzepatide (Mounjaro) 5 mg/ 0.5 mL pen injector Discontinued 5 MG SC EVERY WEEK November 29, 2022 9:56am February 22, 2023 1:32pm Start: 11-29-2022 End: 02-22-2023 Tirzepatide (Mounjaro) 5 mg/ 0.5 mL pen injector Discontinued 5 MG SC EVERY WEEK November 29, 2022 10:56am February 22, 2023 2:32pm Start: 11-29-2022 Tirzepatide (M ounjaro) 5 mg/0.5 mL pen injector Active 5 MG SC EVERY WEEK 2 November 29, 2022 10:56am Start: 08-17-2022 End: 11-29-2022 Tirzepatide (Mounjaro) 5 mg/ 0.5 mL pen injector Discontinued 5 mg SC EVERY WEEK 2 August 17, 2022 9:42am November 29, 2022 10:56am Start: 08-17-2022 End: 11-29-2022 Tirzepatide (Mounjaro) 5 mg/ 0.5 mL pen injector Discontinued 5 MG SC EVERY WEEK 2 August 17, 2022 8:42am November 29, 2022 9:56am Start: 08-17-2022 End: 11-29-2022 Tirzepatide (Mounjaro) 5 mg/ 0.5 mL pen injector Discontinued 5 MG SC EVERY WEEK August 17, 2022 9:42am November 29, 2022 10:56am Start: 08-17-2022 Tirzepatide (M ounjaro) 5 mg/0.5 mL pen injector Active 5 MG SC EVERY WEEK August 17, 2022 8:42am Start: 08-17-2022 End: 08-17-2022 Tirzepatide (Mounjaro) 5 mg/ 0.5 mL pen injector Discontinued 5 mg SC EVERY WEEK 2 August 17, 2022 12:00am August 17, 2022 9:43am Start: 08-17-2022 End: 08-17-2022 Tirzepatide (Mounjaro) 5 mg/ 0.5 mL pen injector Discontinued 5 MG SC EVERY WEEK August 17, 2022 12:00am August 17, 2022 9:43am Start: 08-17-2022 End: 08-17-2022 Tirzepatide (Mounjaro) 5 mg/ 0.5 mL pen injector Discontinued 5 MG SC EVERY WEEK 2 August 16, 2022 11:00pm August 17, 2022 8:43am tranexamic acid 650 mg oral tablet (1 source) Antifibrinolytic Agent Start: 09-17-2019 End: 09-17-2019 tranexamic acid (LYSTEDA) tablet 1,950 mg Problems Active Problems Problem Classification Problem Date Documented Date Episodic/Chronic Cardiac dysrhythmias (20 sources) Ventricular arrhythmia; Translations: [Ventricular premature depolarization] Chronic Cardiac dysrhythmias (20 sources) Palpitations; Translations: [Palpitations] Episodic Complication of device; implant or graft (12 sources) Arteriosclerosis of coronary artery bypass graft; Translations: [Atherosclerosis of coronary artery bypass graft(s) without angina pectoris] Onset: 07-14-2016 02-23-2019 Chronic Conduction disorders (20 sources) Left bundle branch block; Translations: [Left bundle-branch block, unspecified] Onset: 09-05-2019 09-05-2019 Chronic Coronary atherosclerosis and other heart disease (20 sources) History of non-ST segment elevation myocardial infarction; Translations: [Old myocardial infarction] Chronic Diabetes mellitus with complications (1 source) Type 2 diabetes mellitus; Translations: [Type 2 diabetes mellitus with other circulatory complications] Onset: 07-14-2016 07-14-2016 Chronic Diabetes mellitus without complication (20 sources) Type 2 diabetes mellitus without complication; Translations: [Type 2 diabetes mellitus] Onset: 07-14-2016 02-23-2019 Chronic Disorders of lipid metabolism (20 sources) Hyperlipidemia; Translations: [Dyslipidemia] Onset: 07-14-2016 02-23-2019 Chronic Essential hypertension (20 sources) Essential hypertension; Translations: [Hypertensive disorder] Onset: 07-14-2016 02-23-2019 Chronic Comment on above: Blood pressure is we ll controlled. Joint disorders and dislocations; trauma-related (1 source) Loose body in right knee joint; Translations: [Loose body of right knee] Nonspecific chest pain (15 sources) Chest pain; Translations: [Chest pain, unspecified] 06-22-2022 Episodic Other connective tissue disease (2 sources) History of total knee arthroplasty; Translations: [History of total knee arthroplasty, right] Chronic Other connective tissue disease (7 sources) Neuropathic pain; Translations: [Neuralgia and neuritis, unspecified] 01-26-2023 Episodic Other connective tissue disease (3 sources) Pain in left arm; Translations: [Pain in left arm] 02-22-2024 Episodic Other lower respiratory disease (15 sources) Chronic cough; Translations: [Chronic cough] 06-14-2022 Episodic Other lower respiratory disease (14 sources) Dyspnea; Translations: [Dyspnea, unspecified] 06-15-2022 Episodic Other lower respiratory disease (5 sources) Dyspnea, unspecified; Translations: [Other respiratory abnormalities] Episodic Other non-traumatic joint disorders (16 sources) Pain in right knee; Translations: [Right knee pain] 02-28-2019 Episodic Other non-traumatic joint disorders (2 sources) Knee pain; Translations: [Chronic pain of right knee] Episodic Other non-traumatic joint disorders (1 source) Joint pain; Translations: [Arthralgia, unspecified joint] Episodic Other non-traumatic joint disorders (14 sources) Hip pain; Translations: [Pain in right hip] 01-26-2023 Episodic Other non-traumatic joint disorders (2 sources) Pain in right hip; Translations: [Pain in joint, pelvic region and thigh] 01-25-2023 Episodic Other nutritional; endocrine; and metabolic disorders (3 sources) Obesity, unspecified; Translations: [Obesity, Class II, BMI 35-39.9] Onset: 02-23-2019 02-23-2019 Chronic Other nutritional; endocrine; and metabolic disorders (7 sources) Obese class II; Translations: [Obesity, Class II, BMI 35-39.9] Onset: 02-23-2019 02-23-2019 Other screening for suspected conditions (not mental disorders or infectious disease) (1 source) Plain X-ray result abnormal; Translations: [Abnormal x-ray] Episodic Other upper respiratory infections (15 sources) Acute upper respiratory infection; Translations: [Acute upper respiratory infection, unspecified] 06-22-2022 Episodic Residual codes; unclassified (1 source) Tobacco user; Translations: [Tobacco use] Onset: 07-14-2016 07-14-2016 Chronic Residual codes; unclassified (14 sources) Hypersomnia; Translations: [Hypersomnia, unspecified] 06-15-2022 Chronic Residual codes; unclassified (5 sources) Hypersomnia, unspecified; Translations: [Hypersomnia, unspecified] Chronic Residual codes; unclassified (20 sources) Obstructive sleep apnea syndrome; Translations: [Obstructive sleep apnea (adult) (pediatric)] 09-29-2022 Chronic Residual codes; unclassified (14 sources) Obstructive sleep apnea (adult) (pediatric); Translations: [Obstructive sleep apnea (adult)(pediatric)] Chronic Residual codes; unclassified (14 sources) Tobacco user; Translations: [Tobacco use] 08-23-2022 Episodic Residual codes; unclassified (16 sources) Tobacco use; Translations: [Tobacco use disorder] Episodic Spondylosis; intervertebral disc disorders; other back problems (9 sources) Low back pain; Translations: [Right low back pain] 01-25-2023 Episodic Substance-related disorders (20 sources) Smoker; Translations: [Nicotine dependence] Onset: 07-14-2016 02-23-2019 Chronic Thyroid disorders (20 sources) Thyroid nodule; Translations: [Nontoxic single thyroid nodule] Onset: 11-03-2024 Chronic Comment on above: Patient with very la rge thyroid gland (left slightly greater than right). Although she denies symptoms, she does have a positive Tomeka sign. This should be considered alongside the patient's reports of obstructive sleep apnea as removal of the gland may serve to ameliorate some of the symptoms she has with this diagnosis. For now, we will assess the likelihood for malignancy as we await cytopathology from the above. We will also plan to obtain updated thyroid function studies. This is a 61-year-ol d female who presents with incidentally noted bilateral thyroid nodules. Indeed with a detailed history, patient appears asymptomatic from these findings. Both nodules are quite large in size. The right-sided nodule was rated a TI-RADS 3 and 3 cm in maximal dimension. The left side was a TI-RADS 4 and measured 5.7 cm in maximum dimension. Given these ratings and sizes, both met criteria for FNA biopsy. This was extended the patient today and she provided her consent for ultrasound-guided biopsy of right and left thyroid nodules. Please see appended documentation for complete details of this procedure.Update 10/15/2024: Patient is now 63 years old and presents for reevaluation of her thyroid nodularity after radiology commented that she is experienced an increase in the size of her thyroid nodules. She does have a history of FNA of both thyroid nodules with cytopathology being initially reassuring on the right sided nodule but was a [place] 3 for the left sided thyroid nodule. Reflex genomic sequencing was performed a left-sided thyroid nodule which showed a benign result. Patient denies any development of compressive symptoms today. I held a detailed conversation with her regarding her thyroid nodularity. Specifically, on the left I shared that her nodule, when applied to the RUBI thyroid nodule change in volume calculator, has grown but only at an increase of 10.6%. This falls far below RUBI's recommendation to pursue repeat biopsy 50%. Thus, in the absence of new symptoms I am inclined to pursue ongoing surveillance. Further, on the right side the dimensions obtained from her most recent ultrasound when compared to the study in 2022 show no net change (1 dimension is +3 mm but the other dimension is -3 mm). Thus, once again I am recommending ongoing surveillance and do not find cause to pursue repeat FNA. Lastly, I did confirm that Mrs. Lewis completed update thyroid function testing and her TSH remains within normal limits as of last month. Patient with FNA bio psy September 2022 showing follicular cells of undetermined significance on left-sided thyroid nodule. Options were discussed and recommended repeat FNA with molecular assay (Afirma) patient excepted and this was completed in an uncomplicated fashion during today's visit. Advised patient that like time on this processing is more delayed than simple cytology and that we will telephone her with the results once they are known. She has been advised to maintain a head up position and keep ice on her neck throughout today. Unclassified (14 sources) Patient encounter status; Translations: [Pre-operative cardiovascular examination] Onset: 02-23-2019 02-23-2019 Viral infection (4 sources) COVID-19; Translations: [Other specified viral infection] Episodic Past or Other Problems Problem Classification Problem Date Documented Da te Episodic/Chronic Calculus of urinary tract (10 sources) Kidney stone; Translations: [Calculus of kidney] Onset: 08-01-2006 02-23-2019 Episodic Coronary atherosclerosis and other heart disease (20 sources) History of coronary artery bypass grafting; Translations: [Presence of aortocoronary bypass graft] Onset: 03-24-2014 02-23-2019 Episodic Residual codes; unclassified (11 sources) Family history of ischemic heart disease and other diseases of the circulatory system; Translations: [Family history of coronary artery disease] Onset: 02-23-2019 02-23-2019 Episodic Residual codes; unclassified (1 source) Tobacco use and exposure - finding; Translations: [Tobacco use] Onset: 07-14-2016 07-14-2016 Episodic Residual codes; unclassified (1 source) Asymptomatic menopausal state; Translations: [Asymptomatic menopausal state] Onset: 09-24-2024 Episodic Results Test Name Value Interpretation Reference Range Facility Cardiology Visit Reporton Cardiology Visit Report [facility] [address] [place] [address] OFFICE VISIT Date of Service: 06/14/25 MR#: [id number] Acct: [id number] Name: HAMZAH LEWIS Rep #: [id number] : 1960 Provider: FABRIZIO segovia Age/Sex: 64/F Location: [facility] Status: Signed HPI HPI History of Present Illness Details: This is a 64-year-old female who presents today for cardiovascular follow-up visit. She has a history significant for coronary artery disease status post three-vessel CABG in 2013, hypertension, dyslipidemia, diabetes mellitus, and obstructive sleep apnea. From a cardiac standpoint, the patient is doing well. She denies any palpitations, chest pain, pressure or heaviness. She denies SOB, Orthopnea, and PND. She does wear a CPAP nightly. She does not have bleeding issues; no blood in urine, stool, or nosebleeds. She denies any decrease in energy level, myalgias, or claudication. She does not have edema, or sudden weight gain. She denies lightheadedness, dizziness, syncopal or near syncopal episodes, and headaches. She continues to smoke 1/2-1 pack a day. 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5 mL 7.5 mg subcut QWEEK 11/16/2306/14 History subcutaneous pen injector (Sosa) Ejection fraction %: 55 Have you fallen in the past year?: No PFSH Medical History Multiple thyroid nodules Right hip pain Right low back pain JAUN (obstructive sleep apnea) Thyromegaly Left thyroid nodule JAUN (obstructive sleep apnea) PVC (premature ventricular contraction) Palpitations Tobacco abuse LBBB (left bundle branch block) History of non-ST elevation myocardial infarction (NSTEMI) Atherosclerotic heart disease of tribe coronary artery without angina pectoris Mixed hyperlipidemia Essential hypertension Hypersomnia Dyspnea CAD (coronary artery disease) Chronic cough Right knee pain URI, acute Knee pain Shoulder pain Hyperlipidemia Hypertension Type 2 diabetes mellitus Surgical History History of coronary artery bypass graft x 3 ( 03/29/14) H/O hysterectomy with unilateral oophorectomy History of section Family History Mother Degenerative joint disease Hypertension Diabetes Hyperlipidemia Grandfather Myocardial infarction Social History Smoking Status: Current every day smoker tobacco type: cigarettes Tobacco: How many years used: 10 alcohol intake: current alcohol intake frequency: a few times a week Alcohol type: beer details: 2-3 per week substance use type: does not use caffeine: Yes Type: coffee Number of servings: 4 what type of physical activity do you participate in: none ROS Const Const: Negative for fatigue, weakness, headache(s) or frequent falls Eyes Eyes: Negative for blurry vision ENT ENT: Negative for headache(s), dizziness or Nosebleed/epistaxis Cardio Chest Pain: No Palpitations: No Edema: None Muscle aches with walking: None Resp Respiratory: Negative for SOB with activity, SOB at rest or SOB orthopnea SOB lying down GI GI: Negative nausea, vomiting, heartburn, bright, red blood in stools or black,tarry stools : Negative for hematuria Neuro Neuro: Negative for dizziness, lightheadedness, near syncope, syncope, frequent falls, headache(s), weakness or blurry vision Endo Endo: Negative for fatigue Cardiology Exam Const Appearance: cooperative, healthy appearing, comfortable and no acute distress Nutritional Appearance: well nourished and overweight Orientation: alert, awake and oriented x3 Head Head: normal to inspection Ears: hearing grossly normal bilat (more content not included)... Normal [facility] Surgery Visit Reporton 10-15 Surgery Visit Report [facility] [address] [place] [address] [address] [place] [address] OFFICE VISIT Date of Service: 10/15/24 MR#: [id number] Acct: [id number] Name: HAMZAH LEWIS Rep #: [id number] : 1960 Provider: Dr. Ifeayni napier MD Age/Sex: 63/F Location: [facility] Status: Signed Intake Vital Signs 05/28/24 14:55 Height 5 ft 3 in Intake Visit Reasons: REVIEW U/S Chief Complaint: review thyroid u/s Is patient in pain?: No Allergies verapamil (From Isoptin) Allergy (Severe, Verified 10/15/24 12:52) confusion Medications ???Medication ???Instructions ???Recorded ???Confirmed ???Type aspirin 81 mg tablet,delayed 81 mg PO DAILY 01/25/18 10/15/24 History release (Adult Low Dose Aspirin) atorvastatin 40 mg tablet 40 mg PO QDAY #90 tabs 04/19/23 10/15/24 Rx carvedilol 6.25 mg tablet 6.25 mg PO BID #180 tabs 04/19/23 10/15/24 Rx empagliflozin 25 mg tablet See Rx Instructions .Route 04/19/23 10/15/24 Rx (Jardiance) .COMPLEX #90 tabs losartan 25 mg tablet 25 mg PO BID #180 tabs 04/19/23 10/15/24 Rx tirzepatide 7.5 mg/0.5 mL 7.5 mg subcut QWEEK 11/16/23 10/15/24 History subcutaneous pen injector (Mounjaro) [facility] Medical History (Updated 10/15/24 @ 16:[address] Ifeanyi Mirza MD) Multiple thyroid nodules Right hip pain Right low back pain JAUN (obstructive sleep apnea) Thyromegaly Left thyroid nodule JAUN (obstructive sleep apnea) PVC (premature ventricular contraction) Palpitations Tobacco abuse LBBB (left bundle branch block) History of non-ST elevation myocardial infarction (NSTEMI) Atherosclerotic heart disease of tribe coronary artery without angina pectoris Mixed hyperlipidemia Essential hypertension Hypersomnia Dyspnea CAD (coronary artery disease) Chronic cough Right knee pain URI, acute Knee pain Shoulder pain Hyperlipidemia Hypertension Type 2 diabetes mellitus Surgical History History of coronary artery bypass graft x 3 ( 03/29/14) H/O hysterectomy with unilateral oophorectomy History of section Family History Mother Degenerative joint disease Hypertension Diabetes Hyperlipidemia Grandfather Myocardial infarction Social History Smoking Status: Current every day smoker tobacco type: cigarettes Tobacco: How many years used: 10 alcohol intake: current alcohol intake frequency: a few times a week Alcohol type: beer details: 2-3 per week substance use type: does not use caffeine: Yes Type: coffee Number of servings: 4 what type of physical activity do you participate in: none HPI HPI HPI: Patient is a 63-year-old female known to me for history of bilateral thyroid nodules. Initial surgical consultation was 10/11/2022 at which time she underwent bilateral thyroid FNA which was then followed by repeat FNA of the left sided thyroid nodule for genomic testing. Ultimately that latter test showed a benign result. Patient's last visit was 2022. She presents today stating that she has been great. She denies any development of new cough, hoarseness, shortness of breath, or swallowing difficulty. Further, she adds that she has experienced some weight loss as part of a treatment for her diabetes now on Mounjaro and Januvia. Patient's interval thyroid ultrasound was completed on 10/01/2024 and radiology commented that patient has bilateral thyroid nodules for which FNA is recommended. They had that repeat FNA should be considered on the basis of an interval increase in the size of the left-sided thyroid nodule. TSH : 1.666 (09/06/2024) Below is recapitulated from patient's initial consultation visit for ease of review: Patient is a 62-year-old female known to me for history of bilateral thyroid nodules. Initial surgical consultation was 10/11/2022 at which time she underwent bilateral thyroid FNA. Patient's left-sided thyroid nodule returned atypia of undetermined significance???Bethesd a 3 and repeat biopsy with molecular assay was recommended. Patient denies any significant interval health changes. 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 ROS General General: No weight change, appetite, fatigue, colon cancer, breast cancer or weakness HEENT HEENT: No difficulty swallowing, eye injury, eye surgery, swollen glands or hoarseness Endo Endocrine: Yes diabetes mellitus; No thyroid disease, thyroid cancer, Hair loss, heat intolerance or cold intolerance Skin Skin: No rash or changing moles Breast Breast: No left breast lump, right breast lump, nipple discharge, breast pain, abnormal mammogram, abnormal US or breast e (more content not included)... Normal [facility] Thyroidon 10-01-2024 Thyroid [facility] Services [address] [place] [address] Thyroid MR#: [id number] Acct: [id number] Name: HAMZAH LEWIS Rep #: [id number] : 1960 F 63 From: Viral haynes DO PCP: FABRIZIO Clarke Status: REG CLI Study: Thyroid Date of Exam: 10/01/24 Exam# [id number] Ordering Dr: Ifeanyi Mirza MD [id number] EXAM: US SOFT TISSUES HEAD AND NECK, THYROID CLINICAL INDICATION: Surveillance -- nodule TECHNIQUE: Greyscale and color doppler imaging was performed of the thyroid gland. COMPARISON: Thyroid ultrasound, 10/07/2023 and 10/04/2022. FINDINGS: LEFT THYROID LOBE: The left thyroid lobe measures 7.5 x 4.1 x 2.9 cm. The left thyroid lobe is diffusely heterogenous. There is a 5.6 cm left thyroid nodule. This nodule is solid or almost completely solid, hyperechoic or isoechoic, [id number]-[id number], margins cannot be determined and contains microcalcifications. TI-RADS points: 4. TI-RADS category: TR4. This nodule is moderately suspicious. Recommend FNA evaluation. RIGHT THYROID LOBE: The right thyroid lobe measures 6.9 x 2.6 x 2.0 cm. The right thyroid lobe is diffusely heterogenous. There is a 1.4 cm right thyroid nodule. This nodule is solid or almost completely solid, hyperechoic or isoechoic, bhyoz-ykmp-[id number], ill-defined and contains no echogenic foci. TI-RADS points: 3. TI-RADS category: TR3. This nodule is mildly suspicious but no FNA or follow-up is necessary given the small size of this nodule. There is a 3.0 cm right thyroid nodule. This nodule is solid or almost completely solid, hyperechoic or isoechoic, [id number]-zklr-fevx, ill-defined and contains no echogenic foci. TI-RADS points: 3. TI-RADS category: TR3. This nodule is mildly suspicious. Recommend FNA evaluation. There is a 0.6 cm right thyroid nodule. This nodule is spongiform. TI-RADS points: 0. TI-RADS category: TR1. This nodule is benign and no FNA or follow-up is necessary. ISTHMUS: Thyroid isthmus measures 0.2 cm. No thyroid nodules are present. US/Thyroid IMPRESSION: 1. Thyromegaly. 2. Bilateral thyroid nodules for which FNA is recommended. Although prior FNA was performed of at least the left side thyroid nodule, there has been interval increase in size and a repeat FNA is recommended if definitive management is not performed. Electronically Signed: Viral Soler, DO at 20:36 EST , CC: FABRIZIO Bahena; Dr. Ifeanyi Mirza MD Progress Worker: Signed Normal [facility] CBC W/Diff, Automatedon 08-24 Absolute Lymph 2.50 X10 3/uL Normal 0.83-4.51 [facility] Comment on above: Performed By: #### L 502.0500, L500.4050, L500.4100, L501.9520, L100.0100 #### [facility] [address] [place], [address] Absolute Neut 4.9 X10 3/uL Normal 2.0-7.7 [facility] Comment on above: Performed By: #### L 502.0500, L500.4050, L500.4100, L501.9520, L100.0100 #### [facility] [address] [place], [address] Basophils/100 WBC (Bld) 0.6 % Normal 0-1 [facility] Comment on above: Performed By: #### L 502.0500, L500.4050, L500.4100, L501.9520, L100.0100 #### [facility] [address] [place], [address] Eosinophils/100 WBC (Bld) 2.6 % Normal 0-5 [facility] Comment on above: Performed By: #### L 502.0500, L500.4050, L500.4100, L501.9520, L100.0100 #### [facility] [address] [place], [address] Erythrocyte distribution width (RBC) [Ratio] 12.7 % Normal 11.6-14.6 [facility] Comment on above: Performed By: #### L 502.0500, L500.4050, L500.4100, L501.9520, L100.0100 #### [facility] [address] [place], [address] Hematocrit (Bld) [Volume fraction] 50.6 % High 37-47 [facility] Comment on above: Performed By: #### L 502.0500, L500.4050, L500.4100, L501.9520, L100.0100 #### [facility] [address] [place], [address] Hemoglobin (Bld) [Mass/Vol] 16.9 g/dL High 12.0-15.0 [facility] Comment on above: Performed By: #### L 502.0500, L500.4050, L500.4100, L501.9520, L100.0100 #### [facility] [address] [place], [address] IG% 0.300 Normal 0.0-0.9 [facility] Comment on above: Result Comment: IG% - Immature Granulocytes (promyelocytes, myelocytes and metamyelocytes) > 1% indicates that a LEFT SHIFT is Present. Performed By: #### L 502.0500, L500.4050, L500.4100, L501.9520, L100.0100 #### [facility] [address] [place], [address] Lymphocytes/100 WBC (Bld) 29.1 % Normal 19-41 [facility] Comment on above: Performed By: #### L 502.0500, L500.4050, L500.4100, L501.9520, L100.0100 #### [facility] [address] [place], [address] MCH (RBC) [Entitic mass] 31.9 pg Normal 27.0-32.0 [facility] Comment on above: Performed By: #### L 502.0500, L500.4050, L500.4100, L501.9520, L100.0100 #### [facility] [address] [place], [address] MCHC (RBC) [Mass/Vol] 33.4 g/dL Normal 32-36 [facility] Comment on above: Performed By: #### L 502.0500, L500.4050, L500.4100, L501.9520, L100.0100 #### [facility] [address] [place], [address] MCV (RBC) [Entitic vol] 95.5 fL Normal 81-99 [facility] Comment on above: Performed By: #### L 502.0500, L500.4050, L500.4100, L501.9520, L100.0100 #### [facility] [address] [place], [address] Monocytes/100 WBC (Bld) 9.8 % Normal 0-10 [facility] Comment on above: Performed By: #### L 502.0500, L500.4050, L500.4100, L501.9520, L100.0100 #### [facility] [address] [place], [address] Neutrophils/100 WBC (Bld) 57.6 % Normal 47-70 [facility] Comment on above: Performed By: #### L 502.0500, L500.4050, L500.4100, L501.9520, L100.0100 #### [facility] [address] [place], [address] Nucleated RBC (Bld) [#/Vol] 0 10*3/uL Normal 0-5 [facility] Comment on above: Performed By: #### L 502.0500, L500.4050, L500.4100, L501.9520, L100.0100 #### [facility] [address] [place], [address] Platelet mean volume (Bld) [Entitic vol] 9.1 fL Normal 6.2-12.0 [facility] Comment on above: Performed By: #### L 502.0500, L500.4050, L500.4100, L501.9520, L100.0100 #### [facility] [address] [place], [address] Platelets (Bld) [#/Vol] 255 10*3/uL Normal 150-450 [facility] Comment on above: Performed By: #### L 502.0500, L500.4050, L500.4100, L501.9520, L100.0100 #### [facility] [address] [place], [address] RBC (Bld) [#/Vol] 5.30 10*6/uL Normal 4.2-5.4 [facility] Comment on above: Performed By: #### L 502.0500, L500.4050, L500.4100, L501.9520, L100.0100 #### [facility] [address] [place], [address] RDW SD 45.6 fl High 35.1-43.9 [facility] Comment on above: Performed By: #### L 502.0500, L500.4050, L500.4100, L501.9520, L100.0100 #### [facility] [address] [place], [address] WBC (Bld) [#/Vol] 8.6 10*3/uL Normal 4.4-11.0 [facility] Comment on above: Performed By: #### L 502.0500, L500.4050, L500.4100, L501.9520, L100.0100 #### [facility] [address] [place], [address] Comprehensive Metabolic Prof ilon 09-06-2024 Albumin [Mass/Vol] 4.0 g/dL Normal 3.2-5.0 [facility] Comment on above: Performed By: #### L 502.0500, L500.4050, L500.4100, L501.9520, L100.0100 #### [facility] [address] [place], [address] Albumin/Globulin [Mass ratio] 1.0 {ratio} Normal 0.9-2.4 [facility] Comment on above: Performed By: #### L 502.0500, L500.4050, L500.4100, L501.9520, L100.0100 #### [facility] [address] [place], [address] ALK P 84 U/L Normal 45-117 [facility] Comment on above: Performed By: #### L 502.0500, L500.4050, L500.4100, L501.9520, L100.0100 #### [facility] [address] [place], [address] ALT [Catalytic activity/Vol] 45 U/L Normal 13-56 [facility] Comment on above: Performed By: #### L 502.0500, L500.4050, L500.4100, L501.9520, L100.0100 #### [facility] [address] [place], [address] AST [Catalytic activity/Vol] 16 U/L Normal 15-37 [facility] Comment on above: Performed By: #### L 502.0500, L500.4050, L500.4100, L501.9520, L100.0100 #### [facility] [address] [place], [address] Bilirubin [Mass/Vol] 1.60 mg/dL High 0.20-1.00 [facility] Comment on above: Result Comment: For patients on eltrombopag therapy, use of Dimension Naselle TBIL is not recommended. Performed By: #### L 502.0500, L500.4050, L500.4100, L501.9520, L100.0100 #### [facility] [address] [place], [address] BUN/CRE 33.8 RATIO High 10-20 [facility] Comment on above: Performed By: #### L 502.0500, L500.4050, L500.4100, L501.9520, L100.0100 #### [facility] [address] [place], [address] CA,Total 9.7 mg/dL Normal 8.5-10.1 [facility] Comment on above: Performed By: #### L 502.0500, L500.4050, L500.4100, L501.9520, L100.0100 #### [facility] [address] [place], [address] Chloride [Moles/Vol] 104 mmol/L Normal 98-107 [facility] Comment on above: Performed By: #### L 502.0500, L500.4050, L500.4100, L501.9520, L100.0100 #### [facility] [address] [place], [address] CO2 [Moles/Vol] 27.0 mmol/L Normal 21.0-32.0 [facility] Comment on above: Performed By: #### L 502.0500, L500.4050, L500.4100, L501.9520, L100.0100 #### [facility] [address] [place], [address] Creatinine [Mass/Vol] 0.71 mg/dL Normal 0.55-1.02 [facility] Comment on above: Result Comment: The validity of the calculated GFR GFRAA in patients over 70 years has not been determined. Clinical correlation is essential. Performed By: #### L 502.0500, L500.4050, L500.4100, L501.9520, L100.0100 #### [facility] [address] [place], [address] EST GFR - AA 107 mL/min Normal >60 [facility] Comment on above: Result Comment: Afri can Gabonese GFR Calc Performed By: #### L 502.0500, L500.4050, L500.4100, L501.9520, L100.0100 #### [facility] [address] [place], [address] GAP 7 Normal 5-15 [facility] Comment on above: Performed By: #### L 502.0500, L500.4050, L500.4100, L501.9520, L100.0100 #### [facility] [address] [place], [address] GFR/1.73 sq M.predicted among non-blacks MDRD (S/P/Bld) [Vol rate/Area] 88 mL/min/{1.73_m2} Normal >60 [facility] Comment on above: Result Comment: Non- GFR Calc Performed By: #### L 502.0500, L500.4050, L500.4100, L501.9520, L100.0100 #### [facility] [address] [place], [address] Globulin (S) [Mass/Vol] 4.0 g/dL Normal 2.2-4.2 [facility] Comment on above: Performed By: #### L 502.0500, L500.4050, L500.4100, L501.9520, L100.0100 #### [facility] [address] [place], [address] Glucose [Mass/Vol] 119 mg/dL High 74-106 [facility] Comment on above: Result Comment: Fast ing Glucose result from 100 to 125 mg/dL suggests IMPAIRED HOMEOSTASIS per A.D.A. criteria. Performed By: #### L 502.0500, L500.4050, L500.4100, L501.9520, L100.0100 #### [facility] [address] [place], [address] Potassium [Moles/Vol] 4.1 mmol/L Normal 3.5-5.1 [facility] Comment on above: Performed By: #### L 502.0500, L500.4050, L500.4100, L501.9520, L100.0100 #### [facility] [address] [place], [address] Sodium [Moles/Vol] 137 mmol/L Normal 136-145 [facility] Comment on above: Performed By: #### L 502.0500, L500.4050, L500.4100, L501.9520, L100.0100 #### [facility] [address] [place], [address] T PROT 8.0 g/dL Normal 6.4-8.2 [facility] Comment on above: Performed By: #### L 502.0500, L500.4050, L500.4100, L501.9520, L100.0100 #### [facility] [address] [place], [address] Urea nitrogen [Mass/Vol] 24 mg/dL High 7-18 [facility] Comment on above: Performed By: #### L 502.0500, L500.4050, L500.4100, L501.9520, L100.0100 #### [facility] [address] [place], [address] Lipid Profileon 09-06-2024 Cholesterol [Mass/Vol] 129 mg/dL Normal 200 [facility] Comment on above: Result Comment: <200 mg/dL Desirable 200-240 mg/dL Borderline >240 mg/dL High Risk Performed By: #### L 502.0500, L500.4050, L500.4100, L501.9520, L100.0100 #### [facility] [address] [place], [address] Cholesterol in HDL [Mass/Vol] 55 mg/dL Normal [facility] Comment on above: Result Comment: The drugs N-Acetylcysteine and Metamizole may falsely depress this assay. Reference Range HDL <40 mg/dL Low HDL Cholesterol HDL >or= 60 mg/dL High HDL Cholesterol Performed By: #### L 502.0500, L500.4050, L500.4100, L501.9520, L100.0100 #### [facility] [address] [place], [address] Cholesterol in LDL [Mass/Vol] 52 mg/dL Normal 0-130 [facility] Comment on above: Performed By: #### L 502.0500, L500.4050, L500.4100, L501.9520, L100.0100 #### [facility] [address] [place], [address] Cholesterol in VLDL [Mass/Vol] 22 mg/dL Normal 5-40 [facility] Comment on above: Performed By: #### L 502.0500, L500.4050, L500.4100, L501.9520, L100.0100 #### [facility] [address] [place], [address] Triglyceride [Mass/Vol] 112 mg/dL Normal [facility] Comment on above: Result Comment: The drugs N-Acetylcysteine and Metamizole may falsely depress this assay. Serum Triglycerides Reference Interval Normal <150 mg/dL Borderline high 150 - 199 mg/dL High 200 - 499 mg/dL Very High > or = 500 mg/dL Performed By: #### L 502.0500, L500.4050, L500.4100, L501.9520, L100.0100 #### [facility] [address] [place], [address] Microalbumin,Random Urineon 09-06-2024 MICROALBUMIN,UR < 5.0 Normal NO RANGE EST. [facility] Comment on above: Performed By: #### L 502.0500, L500.4050, L500.4100, L501.9520, L100.0100 #### [facility] [address] [place], [address] Thyroid Stim Hormone (TSH)on 09-06-2024 TSH 1.660 uIU/mL Normal 0.358-3.740 [facility] Comment on above: Performed By: #### L 502.0500, L500.4050, L500.4100, L501.9520, L100.0100 #### [facility] [address] [place], [address] Dexa Bone Density Studyon Dexa Bone Density Study [facility] [address] [place] [address] Dexa Bone Density Study MR#: [id number] Acct: [id number] Name: HAMZAH LEWIS Rep #: [id number] : 1960 F 63 From: Kanu galan MD PCP: FABRIZIO Clarke Status: [facility] Study: Dexa Bone Density Study Date of Exam: 08/30/24 Exam# [id number] Ordering Dr: Nish Bahena [facility] [employer]-C [id number] STUDY: DUAL ENERGY X-RAY ABSORPTIOMETRY / DXA REASON FOR EXAM: Female, 63 years old. 627.8Menopausal postmenopausal BONE DENSITY REASON FOR EXAM TECHNIQUE: Bone Mineral Density (BMD) measurements of lumbar spine and bilateral hips were obtained. COMPARISON: None. FINDINGS: Lumbar Spine (L1-L4): g/cm2 (1.045) / T-score (0.0) / Z-score (1.6) Findings are suggestive of normal bone density with a low fracture risk. Left Femur Total: g/cm2 (0.963) / T-score (0.2) / Z-score (1.3) Left Femoral Neck: g/cm2 (0.770) / T-score (-0.7) / Z-score (0.7) Right Femur Total: g/cm2 (0.854) / T-score (-0.7) / Z-score (0.4) Right Femoral Neck: g/cm2 (0.717) / T-score (-1.2) / Z-score (0.2) BD/Dexa Bone Density Study IMPRESSION: The patient is considered osteopenic as outlined below according to World Regan Organization (WHO) criteria with a low fracture risk. Reference Information: The T-score is the number of standard deviations above or below the standard which is normal for young adults at their peak bone mineral density. The World Health Organization (WHO) interprets the T-scores as follows: Above -1 Normal bone density Between -1 and -2.5 Osteopenia Equal to / or below -2.5 Osteoporosis As a practical clinical guideline, osteopenia may be graded as follows: Mild -1 through -1.5 Moderate -1.6 through -2.0 Severe -2.1 through -2.4 The Z-score is the number of standard deviations above or below age-matched controls. A Z-score of less than -1.5 would be considered abnormal. References: 1. NIH Osteoporosis and Related Bone Diseases www osteo.org 2. International Society for Clinical Densitometry www iscd.org 3. National Osteoporosis Foundation www nof.org Electronically Signed: Kanu Hahn MD at 14:55 EST , CC: FABRIZIO Bahena Progress Worker: Signed Normal [facility] Absolute lymphocyte countOrd ered By: Karina Sara on 02-22-2024 Lymphocytes Auto (Unsp spec) [#/Vol] 1.85 10*3/uL 0.83-4.51 [facility] Automated lymphocyte count a s percentage of total leukocytesOrdered By: Karina Ruiz on 02-22-2024 Lymphocytes/100 WBC Auto (Unsp spec) 24.0 % 19-41 [facility] Basophil percentageOrdered B y: Karina Sara on 02-22-2024 Basophils/100 WBC (Bld) 0.4 % 0-1 [facility] Chloride [Moles/Vol] 110 mmol/L 98-107 [facility] Eosinophils/100 WBC (Bld) 3.1 % 0-5 [facility] Glucose [Mass/Vol] 172 mg/dL 74-106 [facility] Comment on above: Fasting Glucose resu lt greater than or equal to 126 mg/dL suggests DIABETES MELLITUS per A.D.A. criteria. Hemoglobin (Bld) [Mass/Vol] 15.9 g/dL 12.0-15.0 [facility] Monocytes/100 WBC (Bld) 6.7 % 0-10 [facility] Neutrophils (Bld) [#/Vol] 5.0 10*3/uL 2.0-7.7 [facility] Neutrophils/100 WBC (Bld) 65.4 % 47-70 [facility] Potassium [Moles/Vol] 4.1 mmol/L 3.5-5.1 [facility] Sodium [Moles/Vol] 139 mmol/L 136-145 [facility] WBC (Bld) [#/Vol] 7.7 10*3/uL 4.4-11.0 [facility] Determination of erythrocyte mean corpuscular volume (MCV)Ordered By: Karina Ruiz on 02-22-2024 MCV (RBC) [Entitic vol] 93.3 fL 81-99 [facility] Erythrocyte distribution wid th ratioOrdered By: Karina Ruiz on 02-22-2024 Erythrocyte distribution width (RBC) [Ratio] 12.5 % 11.6-14.6 [facility] Erythrocyte distribution wid th standard deviationOrdered By: Karina Ruiz on 02-22-2024 Erythrocyte distribution width (RBC) [Entitic vol] 42.8 fL 35.1-43.9 [facility] Hematocrit Auto (Bld) [Volum e fraction]Ordered By: Karina Ruiz on 02-22-2024 Hematocrit (Bld) [Volume fraction] 47.1 % 37-47 [facility] Immature granulocytes/100 WB C Auto (Bld)Ordered By: Karina Ruiz on 02-22-2024 Immature granulocytes/100 WBC (Bld) 0.400 % 0.0-0.9 [facility] Comment on above: IG% - Immature Granu locytes (promyelocytes, myelocytes and metamyelocytes) > 1% indicates that a LEFT SHIFT is Present. Laboratory - Chemistry and C hemistry - challengeOrdered By: Karina Ruiz on 02-22-2024 CO2 [Moles/Vol] 25.0 mmol/L 21.0-32.0 [facility] Urea nitrogen/Creatinine [Mass ratio] 26.4 mg/mg 10-20 [facility] - Hematology and Cell countsOrdered By: Karina Ruiz on 02-22-2024 MCH (RBC) [Entitic mass] 31.5 pg 27.0-32.0 [facility] MCHC (RBC) [Mass/Vol] 33.8 g/dL 32-36 [facility] Nucleated RBC/100 WBC (Bld) [Ratio] 0 % 0-5 [facility] Platelet mean volume (Bld) [Entitic vol] 8.7 fL 6.2-12.0 [facility] Platelets (Bld) [#/Vol] 307 10*3/uL 150-450 [facility] No Panel InformationOrdered By: Karina Ruiz on 02-22-2024 Troponin I High Sensitivity 5 pg/mL 3.0-54.0 [facility] Comment on above: Please Note: New Tosin t Units and Gender Specific Reference Ranges. For more information see Policy Stat Procedure Naselle High Sensitivity Troponin (TNIH) and attachments. Estimated Creatinine Clearance Calc 77.06 ml/min [facility] Estimated GFR (MDRD) Amer 99 mL/min >60 [facility] Comment on above: GFR Calc Estimated GFR (MDRD) Non-Af Amer 82 mL/min >60 [facility] Comment on above: Non- GFR Calc RBC Auto (Bld) [#/Vol]Ordere d By: Karina Ruiz on 02-22-2024 RBC (Bld) [#/Vol] 5.05 10*6/uL 4.2-5.4 [facility] Serum or plasma calcium carol urement (mass/volume)Ordered By: Karina Ruiz on 02-22-2024 Calcium [Mass/Vol] 9.6 mg/dL 8.5-10.1 [facility] Serum or plasma creatinine m easurement (mass/volume)Ordered By: Karina Ruiz on 02-22-2024 Creatinine [Mass/Vol] 0.76 mg/dL 0.55-1.02 [facility] Comment on above: The validity of the calculated GFR & GFRAA in patients over 70 years has not been determined. Clinical correlation is essential. Serum or plasma urea nitroge n measurement (mass/volume)Ordered By: Karina Ruiz on 02-22-2024 Urea nitrogen [Mass/Vol] 20 mg/dL 7-18 [facility] Thin prep Papanicolaou smear with manual screeningOrdered By: Karina Ruiz on 02-22-2024 Thin prep Papanicolaou smear with manual screening 4 5-15 [facility] Basophil percentageOrdered B y: Cliff Vazquez on 01-25-2024 Bilirubin [Mass/Vol] 1.30 mg/dL 0.20-1.00 [facility] Comment on above: For patients on eltr ombopag therapy, use of Dimension Naselle TBIL is not recommended. Cholesterol [Mass/Vol] 114 mg/dL <200 [facility] Comment on above: <200 mg/dL Desirable 200-240 mg/dL Borderline >240 mg/dL High Risk Protein [Mass/Vol] 7.3 g/dL 6.4-8.2 [facility] Triglyceride [Mass/Vol] 72 mg/dL <199 [facility] Comment on above: The drugs N-Acetylcy steine and Metamizole may falsely depress this assay.Serum Triglycerides Reference Interval Normal <150 mg/dL Borderline high 150 - 199 mg/dL High 200 - 499 mg/dL Very High > or = 500 mg/dL Direct bilirubinOrdered By: Cliff Vazquez on 01-25-2024 Bilirubin.direct [Mass/Vol] 0.30 mg/dL 0.00-0.30 [facility] - Chemistry and C hemistry - challengeOrdered By: Cliff Vazquez on 01-25-2024 ALP [Catalytic activity/Vol] 91 U/L 45-117 [facility] ALT [Catalytic activity/Vol] 42 U/L 13-56 [facility] Cholesterol in HDL [Mass/Vol] 49 mg/dL >40 [facility] Comment on above: The drugs N-Acetylcy steine and Metamizole may falsely depress this assay. Reference Range HDL <40 mg/dL Low HDL Cholesterol HDL >or= 60 mg/dL High HDL Cholesterol Cholesterol in LDL [Mass/Vol] 51 mg/dL 0-130 [facility] CK [Catalytic activity/Vol] 50 U/L 26-192 [facility] Globulin (S) [Mass/Vol] 3.6 g/dL 2.2-4.2 [facility] No Panel InformationOrdered By: Cliff Vazquez on 01-25-2024 VLDL Cholesterol 14 mg/dL 5-40 [facility] Thin prep Papanicolaou smear with manual screeningOrdered By: Cliff Vazquez on 01-25-2024 Thin prep Papanicolaou smear with manual screening 3.7 g/dL 3.2-5.0 [facility] Thin prep Papanicolaou smear with manual screening 20 U/L 15-37 [facility] Basophil percentageOrdered B y: Marky Sotelo on 04-27-2023 Bilirubin [Mass/Vol] 1.10 mg/dL 0.20-1.00 [facility] Comment on above: For patients on eltr ombopag therapy, use of Dimension Naselle TBIL is not recommended. Cholesterol [Mass/Vol] 124 mg/dL <200 [facility] Comment on above: <200 mg/dL Desirable 200-240 mg/dL Borderline >240 mg/dL High Risk Protein [Mass/Vol] 7.8 g/dL 6.4-8.2 [facility] Triglyceride [Mass/Vol] 116 mg/dL <199 [facility] Comment on above: The drugs N-Acetylcy steine and Metamizole may falsely depress this assay.Serum Triglycerides Reference Interval Normal <150 mg/dL Borderline high 150 - 199 mg/dL High 200 - 499 mg/dL Very High > or = 500 mg/dL Direct bilirubinOrdered By: Marky Sotelo on 04-27-2023 Bilirubin.direct [Mass/Vol] 0.28 mg/dL 0.00-0.30 [facility] - Chemistry and C hemistry - challengeOrdered By: Marky Sotelo on 04-27-2023 ALP [Catalytic activity/Vol] 80 U/L 45-117 [facility] ALT [Catalytic activity/Vol] 39 U/L 13-56 [facility] Globulin (S) [Mass/Vol] 3.7 g/dL 2.2-4.2 [facility] Serum or plasma albumin carol urement (mass/volume)Ordered By: Marky Sotelo on 04-27-2023 Albumin [Mass/Vol] 4.1 g/dL 3.2-5.0 [facility] Serum or plasma cholesterol in HDL measurement (mass/volume)Ordered By: Marky Sotelo on 04-27-2023 Cholesterol in HDL [Mass/Vol] 51 mg/dL >40 [facility] Comment on above: The drugs N-Acetylcy steine and Metamizole may falsely depress this assay. Reference Range HDL <40 mg/dL Low HDL Cholesterol HDL >or= 60 mg/dL High HDL Cholesterol Serum or plasma cholesterol in VLDL measurement (mass/volume)Ordered By: Marky Sotelo on 04-27-2023 Cholesterol in VLDL [Mass/Vol] 23 mg/dL 5-40 [facility] Serum or plasma low density lipoprotein (LDL) cholesterol measurement (mass/volume)Ordered By: Marky Sotelo on 04-27-2023 Cholesterol in LDL [Mass/Vol] 50 mg/dL 0-130 [facility] Thin prep Papanicolaou smear with manual screeningOrdered By: Marky Sotelo on 04-27-2023 Thin prep Papanicolaou smear with manual screening 18 U/L 15-37 [facility] - Hematology and Cell countson 04-19-2023 HbA1c (Bld) [Mass fraction] 6.7 % 4.2-6.3 [facility] Absolute lymphocyte countOrd ered By: Dr. Mercado on 01-26-2023 Lymphocytes Auto (Unsp spec) [#/Vol] 2.10 10*3/uL 0.83-4.51 [facility] Basophil percentageOrdered B y: Dr. Mercado on 01-26-2023 Basophil percentage 0-5 SEEN /hpf 0-5 [facility] Basophils/100 WBC (Bld) 0.5 % 0-1 [facility] Chloride [Moles/Vol] 110 mmol/L 98-107 [facility] Eosinophils/100 WBC (Bld) 4.3 % 0-5 [facility] Glucose [Mass/Vol] 139 mg/dL 74-106 [facility] Comment on above: Fasting Glucose resu lt greater than or equal to 126 mg/dL suggests DIABETES MELLITUS per A.D.A. criteria. Neutrophils (Bld) [#/Vol] 4.2 10*3/uL 2.0-7.7 [facility] Neutrophils/100 WBC (Bld) 56.7 % 47-70 [facility] Potassium [Moles/Vol] 4.7 mmol/L 3.5-5.1 [facility] Sodium [Moles/Vol] 142 mmol/L 136-145 [facility] WBC (Bld) [#/Vol] 7.4 10*3/uL 4.4-11.0 [facility] Bilirubin Test strip Ql (U)O rdered By: Dr. Mercado on 01-26-2023 Bilirubin Ql (U) Negative Negative [facility] Blood erythrocytes count (nu mber/volume)Ordered By: Dr. Mercado on 01-26-2023 RBC (Bld) [#/Vol] 5.07 10*6/uL 4.2-5.4 [facility] Blood hemoglobin measurement (mass/volume)Ordered By: Dr. Mercado on 01-26-2023 Hemoglobin (Bld) [Mass/Vol] 15.7 g/dL 12.0-15.0 [facility] Blood lymphocytes/100 leukoc ytesOrdered By: Dr. Mercado on 01-26-2023 Lymphocytes/100 WBC (Bld) 28.5 % 19-41 [facility] Blood monocytes/100 leukocyt esOrdered By: Dr. Mercado on 01-26-2023 Monocytes/100 WBC (Bld) 9.6 % 0-10 [facility] Blood platelet mean volumeOr dered By: Dr. Mercado on 01-26-2023 Platelet mean volume (Bld) [Entitic vol] 9.6 fL 6.2-12.0 [facility] Determination of erythrocyte mean corpuscular volume (MCV)Ordered By: Dr. Mercado on 01-26-2023 MCV (RBC) [Entitic vol] 95.3 fL 81-99 [facility] Hematocrit Auto (Bld) [Volum e fraction]Ordered By: Dr. Mercado on 01-26-2023 Hematocrit (Bld) [Volume fraction] 48.3 % 37-47 [facility] Ketones Test strip Ql (U)Ord ered By: Dr. Mercado on 01-26-2023 Ketones Ql (U) Negative Negative [facility] - Chemistry and C hemistry - challengeOrdered By: Dr. Mercado on 01-26-2023 CO2 [Moles/Vol] 30.0 mmol/L 21.0-32.0 [facility] Urea nitrogen/Creatinine [Mass ratio] 23.5 mg/mg 10-20 [facility] - Hematology and Cell countsOrdered By: Dr. Mercado on 01-26-2023 Erythrocyte distribution width (RBC) [Entitic vol] 46.0 fL 35.1-43.9 [facility] Erythrocyte distribution width (RBC) [Ratio] 13.2 % 11.6-14.6 [facility] Immature granulocytes/100 WBC (Bld) 0.400 % 0.0-0.9 [facility] Comment on above: IG% - Immature Granu locytes (promyelocytes, myelocytes and metamyelocytes) > 1% indicates that a LEFT SHIFT is Present. MCH (RBC) [Entitic mass] 31.0 pg 27.0-32.0 [facility] Nucleated RBC/100 WBC (Bld) [Ratio] 0 % 0-5 [facility] MCHC Auto (RBC) [Mass/Vol]Or dered By: Dr. Mercado on 01-26-2023 MCHC (RBC) [Mass/Vol] 32.5 g/dL 32-36 [facility] Mucus LM Ql (Urine sed)Order ed By: Dr. Mercado on 01-26-2023 Mucus Ql (Urine sed) 0 SEEN /hpf [facility] Nitrite Test strip Ql (U)Ord ered By: Dr. Mercado on 01-26-2023 Nitrite Ql (U) Negative Negative [facility] No Panel InformationOrdered By: Dr. Mercado on 01-26-2023 Estimated Creatinine Clearance Calc 63.47 ml/min [facility] Estimated GFR (MDRD) Amer 99 mL/min >60 [facility] Comment on above: GFR Calc Estimated GFR (MDRD) Non-Af Amer 81 mL/min >60 [facility] Comment on above: Non- GFR Calc Platelets bldOrdered By: Dr. Mercado on 01-26-2023 Platelets (Bld) [#/Vol] 262 10*3/uL 150-450 [facility] Protein Test strip Ql (U)Ord ered By: Dr. Mercado on 01-26-2023 Protein Ql (U) 15 mg/dl Negative [facility] Serum or plasma calcium carol urement (mass/volume)Ordered By: Dr. Mercado on 01-26-2023 Calcium [Mass/Vol] 9.4 mg/dL 8.5-10.1 [facility] Serum or plasma creatinine m easurement (mass/volume)Ordered By: Dr. Mercado on 01-26-2023 Creatinine [Mass/Vol] 0.77 mg/dL 0.55-1.02 [facility] Comment on above: The validity of the calculated GFR & GFRAA in patients over 70 years has not been determined. Clinical correlation is essential. Serum or plasma urea nitroge n measurement (mass/volume)Ordered By: Dr. Mercado on 01-26-2023 Urea nitrogen [Mass/Vol] 18 mg/dL 7-18 [facility] Squamous epithelial cells de tection in urine sediment by light microscopyOrdered By: Dr. Mercado on 01-26-2023 Epithelial cells.squamous LM Ql (Urine sed) 0-5 SEEN /hpf 5-10 [facility] Thin prep Papanicolaou smear with manual screeningOrdered By: Dr. Mercado on 01-26-2023 Thin prep Papanicolaou smear with manual screening 2 5-15 [facility] Urine blood detectionOrdered By: Dr. Mercado on 01-26-2023 RBC Ql (U) Negative Negative [facility] RBC Ql (U) 0 SEEN /hpf 0-5 [facility] Urine clarityOrdered By: Dr. Mercado on 01-26-2023 Clarity (U) Clear Clear [facility] Urine color determinationOrd ered By: Dr. Mercado on 01-26-2023 Color (U) Yellow Yellow [facility] Urine glucose detectionOrder ed By: Dr. Mercado on 01-26-2023 Glucose Ql (U) 1000 mg/dl Normal [facility] Urine leukocyte esterase det ection by dipstickOrdered By: Dr. Mercado on 01-26-2023 Leukocyte esterase Test strip Ql (U) Negative Negative [facility] Urine pHOrdered By: Dr. Geetha felix on 01-26-2023 pH (U) 7.0 [pH] 5.0 - 8.0 [facility] Urine sediment bacteria coun t by microscopy (number/high power field)Ordered By: Dr. Mercado on 01-26-2023 Bacteria LM.HPF (Urine sed) [#/Area] 0 /[HPF] None Seen [facility] Urine specific gravity measu rementOrdered By: Dr. Mercado on 01-26-2023 Specific gravity (U) [Rel density] 1.010 1.002-1.030 [facility] Urobilinogen Auto test strip Ql (U)Ordered By: Dr. Mercado on 01-26-2023 Urobilinogen Ql (U) Normal mg/dl Normal [facility] - Chemistry and C hemistry - challengeon 01-25-2023 Bilirubin Ql (U) Negative [facility] Glucose Ql (U) 1000 g/dL [facility] Ketones Ql (U) Negative [facility] pH (U) 5.0 [pH] [facility] Specific gravity (U) [Rel density] 1.010 [facility] Urobilinogen (U) [Mass/Vol] 0.6985695 mg/dL [facility] - Hematology and Cell countson 01-25-2023 Hemoglobin Ql (U) Negative [facility] - Specimen inform ationon 01-25-2023 Clarity (U) Clear [facility] Color (U) Sary [facility] - Urinalysison Nitrite Ql (U) Negative [facility] Protein Ql (U) Negative [facility] No Panel Informationon 01-25 Urine Leukocytes Negatve [facility] Urine Non-Hemolyzed Blood [facility] - Hematology and Cell countson 01-11-2023 HbA1c (Bld) [Mass fraction] 6.8 % 4.2-6.3 [facility] - Hematology and Cell countson 09-29-2022 HbA1c (Bld) [Mass fraction] 7.1 % 4.2-6.3 [facility] - Microbiology an d Antimicrobial susceptibilityOrdered By: Natividad Estrada on 09-20-2022 SARS-CoV-2 (COVID-19) RNA NURY+probe Ql (Unsp spec) Detected Not Detect [facility] Comment on above: Normal Reference Ran ge: Not DetectedMethod:(RT-PCR) real-time reverse transcriptase PCRLuminex CHASITY Instrument*The Food and Drug Administration (FDA) has issued an Emergency Use Authorization (EAU) for the CHASITY SARS-CoV-2 Assay for the rapid detection of the virus that causes COVID-19. This test has been validated, but the FDAs independent review of this validation is pending.*Negative results do not preclude infection and should not be used as the sole basis for treatment or patient management. Optimum specimen types and timing for peak viral levels during infections caused by SARS-CoV-2 have not been determined. Collection of multiple specimens from the same patient may be necessary to detect the virus. The possibility of a false negative result should be considered if the patient has clinical presentation or has had recent exposure. No Panel Informationon 09-20 Influenza Types A,B Rapid (Clinic) Negative [facility] Basophil percentageon 2021 Bilirubin [Mass/Vol] 1.20 mg/dL 0.20-1.00 [facility] Work Phone: [phone] Comment on above: For patients on eltr ombopag therapy, use of Dimension Naselle TBIL is not recommended. Cholesterol [Mass/Vol] 109 mg/dL <200 [facility] Work Phone: [phone] Comment on above: <200 mg/dL Desirable 200-240 mg/dL Borderline >240 mg/dL High Risk Protein [Mass/Vol] 7.7 g/dL 6.4-8.2 [facility] Work Phone: [phone] Triglyceride [Mass/Vol] 128 mg/dL <199 [facility] Work Phone: [phone] Comment on above: The drugs N-Acetylcy steine and Metamizole may falsely depress this assay.Serum Triglycerides Reference Interval Normal <150 mg/dL Borderline high 150 - 199 mg/dL High 200 - 499 mg/dL Very High > or = 500 mg/dL Direct bilirubinon Bilirubin.direct [Mass/Vol] 0.14 mg/dL 0.00-0.30 [facility] Work Phone: [phone] Laboratory - Chemistry and C hemistry - challengeon 07-12-2022 ALP [Catalytic activity/Vol] 65 U/L 45-117 [facility] Work Phone: [phone] ALT [Catalytic activity/Vol] 40 U/L 13-56 [facility] Work Phone: [phone] Globulin (S) [Mass/Vol] 3.8 g/dL 2.2-4.2 [facility] Work Phone: [phone] Serum or plasma albumin carol urement (mass/volume)on 07-12-2022 Albumin [Mass/Vol] 3.9 g/dL 3.2-5.0 [facility] Work Phone: [phone] Serum or plasma cholesterol in HDL measurement (mass/volume)on 07-12-2022 Cholesterol in HDL [Mass/Vol] 45 mg/dL >40 [facility] Work Phone: [phone] Comment on above: The drugs N-Acetylcy steine and Metamizole may falsely depress this assay. Reference Range HDL <40 mg/dL Low HDL Cholesterol HDL >or= 60 mg/dL High HDL Cholesterol Serum or plasma cholesterol in VLDL measurement (mass/volume)on 07-12-2022 Cholesterol in VLDL [Mass/Vol] 26 mg/dL 5-40 [facility] Work Phone: Serum or plasma low density lipoprotein (LDL) cholesterol measurement (mass/volume)on 07-12-2022 Cholesterol in LDL [Mass/Vol] 38 mg/dL 0-130 [facility] Work Phone: Thin prep Papanicolaou smear with manual screeningon 07-12-2022 Thin prep Papanicolaou smear with manual screening 36 U/L 15-37 [facility] Work Phone: Comment on above: Moderate Hemolysis, Result may be falsely increased. Laboratory - Hematology and Cell countson 06-15-2022 HbA1c (Bld) [Mass fraction] 8.4 % 4.2-6.3 [facility] Work Phone: Absolute lymphocyte counton 06-14-2022 Lymphocytes Auto (Unsp spec) [#/Vol] 1.68 10*3/uL 0.83-4.51 [facility] Work Phone: Basophil percentageon 2021 Basophils/100 WBC (Bld) 0.4 % 0-1 [facility] Work Phone: [phone] Chloride [Moles/Vol] 110 mmol/L 98-107 [facility] Work Phone: [phone] Eosinophils/100 WBC (Bld) 4.5 % 0-5 [facility] Work Phone: [phone] Glucose [Mass/Vol] 203 mg/dL 74-106 [facility] Work Phone: Comment on above: Glucose result great er than or equal to 200 mg/dLsuggests DIABETES MELLITUS per A.D.A. criteria. Neutrophils (Bld) [#/Vol] 8.1 10*3/uL 2.0-7.7 [facility] Work Phone: [phone] Neutrophils/100 WBC (Bld) 72.0 % 47-70 [facility] Work Phone: Potassium [Moles/Vol] 4.4 mmol/L 3.5-5.1 [facility] Work Phone: [phone] Sodium [Moles/Vol] 140 mmol/L 136-145 [facility] Work Phone: [phone] WBC (Bld) [#/Vol] 11.2 10*3/uL 4.4-11.0 [facility] Work Phone: [phone] Blood erythrocytes count (nu mber/volume)on 06-14-2022 RBC (Bld) [#/Vol] 4.27 10*6/uL 4.2-5.4 [facility] Work Phone: Blood hemoglobin measurement (mass/volume)on 06-14-2022 Hemoglobin (Bld) [Mass/Vol] 13.5 g/dL 12.0-15.0 [facility] Work Phone: [phone] Blood lymphocytes/100 leukoc yteson 06-14-2022 Lymphocytes/100 WBC (Bld) 15.0 % 19-41 [facility] Work Phone: [phone] Blood monocytes/100 leukocyt eson 06-14-2022 Monocytes/100 WBC (Bld) 7.7 % 0-10 [facility] Work Phone: [phone] Blood platelet mean volumeon 06-14-2022 Platelet mean volume (Bld) [Entitic vol] 9.7 fL 6.2-12.0 [facility] Work Phone: [phone] Determination of erythrocyte mean corpuscular volume (MCV)on 06-14-2022 MCV (RBC) [Entitic vol] 93.9 fL 81-99 [facility] Work Phone: [phone] Hematocrit Auto (Bld) [Volum e fraction]on 06-14-2022 Hematocrit (Bld) [Volume fraction] 40.1 % 37-47 [facility] Work Phone: Laboratory - Chemistry and C hemistry - challengeon 06-14-2022 CO2 [Moles/Vol] 23.0 mmol/L 21.0-32.0 [facility] Work Phone: [phone] Urea nitrogen/Creatinine [Mass ratio] 16.6 mg/mg 10-20 [facility] Work Phone: [phone] Laboratory - Hematology and Cell countson 06-14-2022 Erythrocyte distribution width (RBC) [Entitic vol] 44.3 fL 35.1-43.9 [facility] Work Phone: [phone] Erythrocyte distribution width (RBC) [Ratio] 12.9 % 11.6-14.6 [facility] Work Phone: [phone] Immature granulocytes/100 WBC (Bld) 0.400 % 0.0-0.9 [facility] Work Phone: [phone] Comment on above: IG% - Immature Granu locytes (promyelocytes, myelocytes and metamyelocytes) > 1% indicates that a LEFT SHIFT is Present. MCH (RBC) [Entitic mass] 31.6 pg 27.0-32.0 [facility] Work Phone: [phone] Nucleated RBC/100 WBC (Bld) [Ratio] 0 % 0-5 [facility] Work Phone: [phone] MCHC Auto (RBC) [Mass/Vol]on 06-14-2022 MCHC (RBC) [Mass/Vol] 33.7 g/dL 32-36 [facility] Work Phone: No Panel Informationon 06-14 Troponin I High Sensitivity 22 pg/mL 3.0-54.0 [facility] Work Phone: [phone] Comment on above: Please Note: New Tosin t Units and Gender Specific Reference Ranges. For more information see Policy Stat Procedure [place] High Sensitivity Troponin (TNIH) and attachments. D-Dimer Quantitative (PE/DVT) 0.73 FEU/ug/m 0.27-0.49 [facility] Work Phone: Comment on above: D-Dimer ELEVATED (>0 .49): Additional studies and clinicalassessments are indicated to conclude diagnosis of:Deep Vein Thrombosis (DVT) or Pulmonary Embolism (PE)CRITICAL VALUE VERIFIED. CALLED TO Jacquelyn MARVIN RN (ED)06/14/22 0210 Milad Sanchez.RESULTS READ BACK BY SAME . Estimated Creatinine Clearance Calc 68.73 ml/min [facility] Work Phone: Estimated GFR (MDRD) Amer 106 mL/min >60 [facility] Work Phone: Comment on above: GFR Calc Estimated GFR (MDRD) Non-Af Amer 88 mL/min >60 [facility] Work Phone: Comment on above: Non- GFR Calc Platelets bldon 06-14-2022 Platelets (Bld) [#/Vol] 196 10*3/uL 150-450 [facility] Work Phone: Serum or plasma calcium carol urement (mass/volume)on 06-14-2022 Calcium [Mass/Vol] 8.6 mg/dL 8.5-10.1 [facility] Work Phone: Serum or plasma creatinine m easurement (mass/volume)on 06-14-2022 Creatinine [Mass/Vol] 0.72 mg/dL 0.55-1.02 [facility] Work Phone: Comment on above: The validity of the calculated GFR & GFRAA in patients over 70 years has not been determined. Clinical correlation is essential. Serum or plasma urea nitroge n measurement (mass/volume)on 06-14-2022 Urea nitrogen [Mass/Vol] 12 mg/dL 7-18 [facility] Work Phone: Thin prep Papanicolaou smear with manual screeningon 06-14-2022 Thin prep Papanicolaou smear with manual screening 7 5-15 [facility] Work Phone: POCT GLUCOSEon 09-17-2019 Glucose [Mass/Vol] 182 mg/dL Abnormal 70 - 99 mg/dL Friday [facility] Interpretation and review of laboratory results [facility] TYPE AND SCREEN CROSSMATCH C ONVERTIBLEon 09-17-2019 TYPE AND SCREEN CROSSMATCH CONVERTIBLE UNITS ORDERED 0 WORKUP EXPIRES 09/20/2019 ABO/RH(D) O POSITIVE ANTIBODY SCREEN NEGATIVE ARM BAND NUMBER [id number] Normal [facility] Comment on above: Performed By: #### A CBC, PT, CMPF #### Testing performed at [address] [address] TYPE AND SCREEN - POSSIBLE T RANSFUSIONon 09-17-2019 ABO and Rh group Nom (Bld ) Positive [facility] ARM BAND NUMBER [id number] [facility] Blood group antibody screen Ql Negative [facility] Blood product units requested (BPU) [#] 0 [facility] EXPIRATION DATE 09/20/2019 [facility] CBCon 09-10-2019 ABSOLUTE BAS 0.0 10*3/uL Normal 0.0-0.2 [facility] Comment on above: Performed By: #### A CBC, PT, CMPF #### Testing performed at [address] [address] ABSOLUTE EOS 0.40 10*3/uL Normal 0.0-0.7 [facility] Comment on above: Performed By: #### A CBC, PT, CMPF #### Testing performed at [address] [address] ABSOLUTE NEUTROPHIL COUNT 4.0 10*3/uL Normal 1.4-6.5 [facility] Comment on above: Performed By: #### A CBC, PT, CMPF #### Testing performed at [address] [address] Basophils/100 WBC (Bld) 0.5 % Normal 0.0-2.0 [facility] Comment on above: Performed By: #### A CBC, PT, CMPF #### Testing performed at [address] [address] DTYPE AUTO DIFF Normal [facility] Comment on above: Performed By: #### A CBC, PT, CMPF #### Testing performed at [address] [address] Eosinophils/100 WBC (Bld) 5.7 % Normal 0.0-11.0 [facility] Comment on above: Performed By: #### A CBC, PT, CMPF #### Testing performed at [address] [address] Lymphocytes (Bld) [#/Vol] 2.00 10*3/uL Normal 1.2-3.4 [facility] Comment on above: Performed By: #### A CBC, PT, CMPF #### Testing performed at [address] [address] Lymphocytes/100 WBC (Bld) 28.3 % Normal 20.0-55.0 [facility] Comment on above: Performed By: #### A CBC, PT, CMPF #### Testing performed at [address] [address] Monocytes (Bld) [#/Vol] 0.6 10*3/uL Normal 0.0-0.7 [facility] Comment on above: Performed By: #### A CBC, PT, CMPF #### Testing performed at [address] [address] Monocytes/100 WBC (Bld) 8.2 % Normal 0.0-10.0 [facility] Comment on above: Performed By: #### A CBC, PT, CMPF #### Testing performed at [address] [address] Neutrophils/100 WBC (Bld) 57.3 % Normal 37.0-75.0 [facility] Comment on above: Performed By: #### A CBC, PT, CMPF #### Testing performed at [address] [address] Erythrocyte distribution width (RBC) [Ratio] 13.1 % Normal 11.5-14.5 [facility] Comment on above: Performed By: #### A CBC, PT, CMPF #### Testing performed at [address] [address] Hematocrit (Bld) [Volume fraction] 46.4 % Normal 36.0-48.0 [facility] Comment on above: Performed By: #### A CBC, PT, CMPF #### Testing performed at [address] [address] Hemoglobin (Bld) [Mass/Vol] 15.7 g/dL Normal 12.0-16.0 [facility] Comment on above: Performed By: #### A CBC, PT, CMPF #### Testing performed at [address] [address] MCH (RBC) [Entitic mass] 32.0 pg Normal 26.0-35.0 [facility] Comment on above: Performed By: #### A CBC, PT, CMPF #### Testing performed at [address] [address] MCHC (RBC) [Mass/Vol] 33.9 g/dL Normal 27.0-37.0 [facility] Comment on above: Performed By: #### A CBC, PT, CMPF #### Testing performed at [address] [address] MCV (RBC) [Entitic vol] 94.6 fL Normal 80.0-100.0 [facility] Comment on above: Performed By: #### A CBC, PT, CMPF #### Testing performed at [address] [address] Platelet mean volume (Bld) [Entitic vol] 7.8 fL Normal 7.4-11.0 [facility] Comment on above: Performed By: #### A CBC, PT, CMPF #### Testing performed at [address] [address] Platelets (Bld) [#/Vol] 242 10*3/uL Normal 130.0-400.0 [facility] Comment on above: Performed By: #### A CBC, PT, CMPF #### Testing performed at [address] [address] RBC (Bld) [#/Vol] 4.91 10*6/uL Normal 4.0-5.4 [facility] Comment on above: Performed By: #### A CBC, PT, CMPF #### Testing performed at [address] [address] WBC (Bld) [#/Vol] 7.0 10*3/uL Normal 3.6-11.0 [facility] Comment on above: Performed By: #### A CBC, PT, CMPF #### Testing performed at [address] [address] CMP FASTINGon 09-10-2019 A:G RATIO 1.5 RATIO Normal 1.3-2.2 [facility] Comment on above: Performed By: #### A CBC, PT, CMPF #### Testing performed at [address] [address] Albumin [Mass/Vol] 4.5 G/dl Normal 3.5-5.0 [facility] Comment on above: Performed By: #### A CBC, PT, CMPF #### Testing performed at [address] [address] ALP [Catalytic activity/Vol] 58 U/L Normal 38-126 [facility] Comment on above: Performed By: #### A CBC, PT, CMPF #### Testing performed at [address] [address] ALT [Catalytic activity/Vol] 24 U/L Normal 14-54 [facility] Comment on above: Performed By: #### A CBC, PT, CMPF #### Testing performed at [address] [address] AST [Catalytic activity/Vol] 17 U/L Normal 15-41 [facility] Comment on above: Performed By: #### A CBC, PT, CMPF #### Testing performed at [address] [address] Bilirubin [Mass/Vol] 1.2 mg/dL Normal 0.2-1.2 [facility] Comment on above: Performed By: #### A CBC, PT, CMPF #### Testing performed at [address] [address] Creatinine [Mass/Vol] 0.58 mg/dL Normal 0.52-1.04 [facility] Comment on above: Performed By: #### A CBC, PT, CMPF #### Testing performed at [address] [address] EST. GFR, >60 Normal [facility] Comment on above: Performed By: #### A CBC, PT, CMPF #### Testing performed at [address] [address] EST. GFR,Non >60 Normal [facility] Comment on above: Performed By: #### A CBC, PT, CMPF #### Testing performed at [address] [address] GFR/1.73 sq M predicted among non-blacks MDRD (S/P/Bld) [Vol rate/Area] Average GFR for 50-59 years old = 93. Normal [facility] Comment on above: Result Comment: Erp Engineer colt Kidney disease, GFR = <60. Kidney failure, GFR = <15. The GFR estimate is not adjusted for extreme body surface area or acute process, nor has it been validated for women or ethnic groups other than and . Performed By: #### A CBC, PT, CMPF #### Testing performed at [address] [address] Protein [Mass/Vol] 7.5 g/dL Normal 6.3-8.2 [facility] Comment on above: Performed By: #### A CBC, PT, CMPF #### Testing performed at [address] [address] Urea nitrogen [Mass/Vol] 16 mg/dL Normal 7-20 [facility] Comment on above: Performed By: #### A CBC, PT, CMPF #### Testing performed at [address] [address] Calcium [Mass/Vol] 10.1 mg/dL Normal 8.4-10.2 [facility] Comment on above: Performed By: #### A CBC, PT, CMPF #### Testing performed at [address] [address] Chloride [Moles/Vol] 101 mmol/L Normal 98-107 [facility] Comment on above: Performed By: #### A CBC, PT, CMPF #### Testing performed at [address] [address] CO2 [Moles/Vol] 28 mmol/L Normal 22-30 [facility] Comment on above: Performed By: #### A CBC, PT, CMPF #### Testing performed at [address] [address] Glucose [Mass/Vol] 176 mg/dL High 70-100 [facility] Comment on above: Result Comment: NORMAL <100 mg/dL PREDIABETES 101-126 mg/dL DIABETES 126 mg/dL or higher Performed By: #### A CBC, PT, CMPF #### Testing performed at [address] [address] Potassium [Moles/Vol] 4.9 mmol/L Normal 3.5-5.1 [facility] Comment on above: Performed By: #### A CBC, PT, CMPF #### Testing performed at [address] [address] Sodium [Moles/Vol] 136 mmol/L Normal 136-145 [facility] Comment on above: Performed By: #### A CBC, PT, CMPF #### Testing performed at [address] [address] MRSA SCREENon 09-10-2019 MRSA DNA NURY+probe Ql (Unsp spec) Positive Abnormal NEGATIVE [facility] Comment on above: Result Comment: TEST ING PERFORMED BY PCR Performed By: #### A CBC, PT, CMPF #### Testing performed at [address] [address] MRSA DNA NURY+probe Ql (Unsp spec) Negative Normal NEGATIVE [facility] Comment on above: Performed By: #### A CBC, PT, CMPF #### Testing performed at [address] [address] PROTIMEon 09-10-2019 INR Coag (PPP) [Relative time] 0.92 {INR} Normal 0.88-1.12 [facility] Comment on above: Result Comment: 2.0- 3.0 THERAPEUTIC RANGE 2.5-3.5 PROSTHETIC VALVE RANGE Performed By: #### A CBC, PT, CMPF #### Testing performed at [address] [address] PT Coag (PPP) [Time] 12.3 s Normal 11.6-14.0 [facility] Comment on above: Performed By: #### A CBC, PT, CMPF #### Testing performed at [address] [address] TYPE AND SCREEN CROSSMATCH C ONVERTIBLEon 09-10-2019 TYPE AND SCREEN CROSSMATCH CONVERTIBLE WORKUP EXPIRES 09/20/2019 ABO/RH(D) O POSITIVE ANTIBODY SCREEN NEGATIVE ARM BAND NUMBER [id number] Normal [facility] Comment on above: Performed By: #### A CBC, PT, CMPF #### Testing performed at [address] [place] [address] URINE MACROSCOPICon 09-10-20 19 Bilirubin Ql (U) Negative Normal NEGATIVE [facility] Comment on above: Performed By: #### U MAC #### Testing performed at [address] [place] [address] Clarity (U) CLEAR Normal CLEAR [facility] Comment on above: Performed By: #### U MAC #### Testing performed at [address] [place] [address] Color (U) YELLOW Normal YELLOW [facility] Comment on above: Performed By: #### U MAC #### Testing performed at [address] [address] Glucose Ql (U) Negative Normal NEGATIVE [facility] Comment on above: Performed By: #### U MAC #### Testing performed at [address] [address] pH (U) 6.0 [pH] Normal 5.0-7.0 [facility] Comment on above: Performed By: #### U MAC #### Testing performed at [address] [place] [address] Protein (U) [Mass/Vol] Negative Normal NEGATIVE [facility] Comment on above: Performed By: #### U MAC #### Testing performed at [address] [place] [address] URINE HEMOGLOBIN Negative Normal NEGATIVE [facility] Comment on above: Performed By: #### U MAC #### Testing performed at [address] [place] [address] URINE KETONE Negative Normal NEGATIVE [facility] Comment on above: Performed By: #### U MAC #### Testing performed at [address] [place] [address] URINE LEUKOTEST Negative Normal NEGATIVE [facility] Comment on above: Performed By: #### U MAC #### Testing performed at [address] [place] [address] URINE NITRATES Negative Normal NEGATIVE [facility] Comment on above: Performed By: #### U MAC #### Testing performed at [address] [place] [address] URINE SPEC GRAVITY 1.010 Normal 1.010-1.025 [facility] Comment on above: Performed By: #### U MAC #### Testing performed at [address] [address] Urobilinogen Qn (U) 0.2 {Mariya'U}/dL Normal 0.2-1.0 [facility] Comment on above: Performed By: #### U MAC #### Testing performed at [address] [address] CBCon 02-23-2019 ABSOLUTE BAS 0.1 X10 Normal [facility] Comment on above: Performed By: #### A CBC, PT, CMPF #### [place] [address] ABSOLUTE EOS 0.20 X10 Normal [facility] Comment on above: Performed By: #### A CBC, PT, CMPF #### Testing performed at [address] [address] ABSOLUTE NEUTROPHIL COUNT 4.4 x10 Normal 1.0-7.0 [facility] Comment on above: Performed By: #### A CBC, PT, CMPF #### Testing performed at [address] [address] Basophils/100 WBC (Bld) 0.9 % Normal 0.0-2.0 [facility] Comment on above: Performed By: #### A CBC, PT, CMPF #### Testing performed at [address] [address] DTYPE AUTO DIFF Normal [facility] Comment on above: Performed By: #### A CBC, PT, CMPF #### Testing performed at [address] [address] Eosinophils/100 WBC (Bld) 3.0 % Normal 0.0-11.0 [facility] Comment on above: Performed By: #### A CBC, PT, CMPF #### Testing performed at [address] [address] Lymphocytes (Bld) [#/Vol] 2.40 X10 Normal [facility] Comment on above: Performed By: #### A CBC, PT, CMPF #### Testing performed at [address] [address] Lymphocytes/100 WBC (Bld) 30.8 % Normal 20.0-55.0 [facility] Comment on above: Performed By: #### A CBC, PT, CMPF #### Testing performed at [address] [address] Monocytes (Bld) [#/Vol] 0.6 X10 Normal [facility] Comment on above: Performed By: #### A CBC, PT, CMPF #### Testing performed at [address] [address] Monocytes/100 WBC (Bld) 8.2 % Normal 0.0-10.0 [facility] Comment on above: Performed By: #### A CBC, PT, CMPF #### Testing performed at [address] [address] Neutrophils/100 WBC (Bld) 57.1 % Normal 37.0-75.0 [facility] Comment on above: Performed By: #### A CBC, PT, CMPF #### Testing performed at [address] [address] Erythrocyte distribution width (RBC) [Ratio] 13.3 % Normal 11.5-14.5 [facility] Comment on above: Performed By: #### A CBC, PT, CMPF #### Testing performed at [address] [address] Hematocrit (Bld) [Volume fraction] 42.7 % Normal 36.0-48.0 [facility] Comment on above: Performed By: #### A CBC, PT, CMPF #### Testing performed at [address] [address] Hemoglobin (Bld) [Mass/Vol] 15.1 g/dL Normal 12.0-16.0 [facility] Comment on above: Performed By: #### A CBC, PT, CMPF #### Testing performed at [address] [address] MCH (RBC) [Entitic mass] 32.3 pg Normal 26.0-35.0 [facility] Comment on above: Performed By: #### A CBC, PT, CMPF #### Testing performed at [address] [address] MCHC (RBC) [Mass/Vol] 35.3 g/dL Normal 27.0-37.0 [facility] Comment on above: Performed By: #### A CBC, PT, CMPF #### Testing performed at [address] [address] MCV (RBC) [Entitic vol] 91.5 fL Normal 80.0-100.0 [facility] Comment on above: Performed By: #### A CBC, PT, CMPF #### Testing performed at [address] [address] Platelet mean volume (Bld) [Entitic vol] 7.9 fL Normal 7.4-11.0 [facility] Comment on above: Performed By: #### A CBC, PT, CMPF #### Testing performed at [address] [address] Platelets (Bld) [#/Vol] 213 /cmm Normal 130.0-400.0 [facility] Comment on above: Performed By: #### A CBC, PT, CMPF #### Testing performed at [address] [address] RBC (Bld) [#/Vol] 4.67 /cmm Normal 4.0-5.4 [facility] Comment on above: Performed By: #### A CBC, PT, CMPF #### Testing performed at [address] [address] WBC (Bld) [#/Vol] 7.6 /cmm Normal 3.6-11.0 [facility] Comment on above: Performed By: #### A CBC, PT, CMPF #### Testing performed at [address] [address] CMP FASTINGon 02-23-2019 A:G RATIO 1.3 RATIO Normal 1.3-2.2 [facility] Comment on above: Performed By: #### A CBC, PT, CMPF #### Testing performed at [address] [address] Albumin [Mass/Vol] 3.9 G/dl Normal 3.5-5.0 [facility] Comment on above: Performed By: #### A CBC, PT, CMPF #### Testing performed at [address] [address] ALP [Catalytic activity/Vol] 75 U/L Normal 38-126 [facility] Comment on above: Performed By: #### A CBC, PT, CMPF #### Testing performed at [address] [address] ALT [Catalytic activity/Vol] 26 U/L Normal 14-54 [facility] Comment on above: Performed By: #### A CBC, PT, CMPF #### Testing performed at [place] [id number] AST [Catalytic activity/Vol] 23 U/L Normal 15-41 [facility] Comment on above: Performed By: #### A CBC, PT, CMPF #### Testing performed at [address] [address] Bilirubin [Mass/Vol] 1.2 mg/dL Normal 0.2-1.2 [facility] Comment on above: Performed By: #### A CBC, PT, CMPF #### Testing performed at [place] [id number] Creatinine [Mass/Vol] 0.84 mg/dL Normal 0.52-1.04 [facility] Comment on above: Performed By: #### A CBC, PT, CMPF #### Testing performed at [address] [address] EST. GFR, >60 Normal [facility] Comment on above: Performed By: #### A CBC, PT, CMPF #### Testing performed at [address] [address] EST. GFR,Non >60 Normal [facility] Comment on above: Performed By: #### A CBC, PT, CMPF #### Testing performed at [address] [address] GFR/1.73 sq M predicted among non-blacks MDRD (S/P/Bld) [Vol rate/Area] Average GFR for 50-59 years old = 93. Normal [facility] Comment on above: Result Comment: Erp Engineer colt Kidney disease, GFR = <60. Kidney failure, GFR = <15. The GFR estimate is not adjusted for extreme body surface area or acute process, nor has it been validated for women or ethnic groups other than and . Performed By: #### A CBC, PT, CMPF #### Testing performed at [address] [address] Protein [Mass/Vol] 6.9 g/dL Normal 6.3-8.2 [facility] Comment on above: Performed By: #### A CBC, PT, CMPF #### Testing performed at [address] [address] Urea nitrogen [Mass/Vol] 19 mg/dL Normal 7-20 [facility] Comment on above: Performed By: #### A CBC, PT, CMPF #### Testing performed at [address] [address] Calcium [Mass/Vol] 9.4 mg/dL Normal 8.4-10.2 [facility] Comment on above: Performed By: #### A CBC, PT, CMPF #### Testing performed at [address] [address] Chloride [Moles/Vol] 100 mmol/L Normal 98-107 [facility] Comment on above: Performed By: #### A CBC, PT, CMPF #### Testing performed at [address] [address] CO2 [Moles/Vol] 24 mmol/L Normal 22-30 [facility] Comment on above: Performed By: #### A CBC, PT, CMPF #### Testing performed at [address] [address] Glucose [Mass/Vol] 300 mg/dL High 70-100 [facility] Comment on above: Result Comment: NORMAL <100 mg/dL PREDIABETES 101-126 mg/dL DIABETES 126 mg/dL or higher Performed By: #### A CBC, PT, CMPF #### Testing performed at [address] [address] Potassium [Moles/Vol] 3.9 mmol/L Normal 3.5-5.1 [facility] Comment on above: Performed By: #### A CBC, PT, CMPF #### [place] [address] Sodium [Moles/Vol] 135 mmol/L Low 136-145 [facility] Comment on above: Performed By: #### A CBC, PT, CMPF #### Testing performed at [place] [id number] MRSA SCREENon 02-23-2019 MRSA DNA NURY+probe Ql (Unsp spec) Positive Abnormal NEGATIVE [facility] Comment on above: Performed By: #### M RSAST #### [place] [address] Result Comment: TEST ING PERFORMED BY PCR PROTIMEon 02-23-2019 INR Coag (PPP) [Relative time] 0.93 {INR} Normal 0.88-1.12 [facility] Comment on above: Result Comment: 2.0- 3.0 THERAPEUTIC RANGE 2.5-3.5 PROSTHETIC VALVE RANGE Performed By: #### A CBC, PT, CMPF #### Testing performed at [place] [address] PT Coag (PPP) [Time] 12.4 s Normal 11.6-14.0 [facility] Comment on above: Performed By: #### A CBC, PT, CMPF #### [place] [address] TYPE AND SCREEN CROSSMATCH C ONVERTIBLEon 02-23-2019 TYPE AND SCREEN CROSSMATCH CONVERTIBLE WORKUP EXPIRES 03/08/2019 ABO/RH(D) O POSITIVE ANTIBODY SCREEN NEGATIVE ARM BAND NUMBER [id number] Normal [facility] Comment on above: Performed By: #### T SCC #### Testing performed at [place] [id number] URINE MACROSCOPICon 02-24-20 19 Bilirubin Ql (U) Negative Normal NEGATIVE [facility] Comment on above: Performed By: #### U MAC, UMIC #### [place] [address] Clarity (U) CLEAR Normal CLEAR [facility] Comment on above: Performed By: #### U MAC, UMIC #### Testing performed at [address] [address] Color (U) YELLOW Normal YELLOW [facility] Comment on above: Performed By: #### U MAC, UMIC #### Testing performed at [address] [address] Glucose Ql (U) 500 mg/dl Abnormal NEGATIVE [facility] Comment on above: Performed By: #### U MAC, UMIC #### Testing performed at [address] [address] pH (U) 5.5 [pH] Normal 5.0-7.0 [facility] Comment on above: Performed By: #### U MAC, UMIC #### Testing performed at [address] [address] Protein (U) [Mass/Vol] Negative Normal NEGATIVE [facility] Comment on above: Performed By: #### U MAC, UMIC #### Testing performed at [address] [address] URINE HEMOGLOBIN Negative Normal NEGATIVE [facility] Comment on above: Performed By: #### U MAC, UMIC #### Testing performed at [address] [address] URINE KETONE Negative Normal NEGATIVE [facility] Comment on above: Performed By: #### U MAC, UMIC #### Testing performed at [address] [address] URINE LEUKOTEST Negative Normal NEGATIVE [facility] Comment on above: Performed By: #### U MAC, UMIC #### Testing performed at [address] [address] URINE NITRATES Negative Normal NEGATIVE [facility] Comment on above: Performed By: #### U MAC, UMIC #### Testing performed at [address] [address] URINE SPEC GRAVITY 1.020 Normal 1.010-1.025 [facility] Comment on above: Performed By: #### U MAC, UMIC #### Testing performed at [address] [address] Urobilinogen Qn (U) 0.2 mg/dl Normal 0.2-1.0 [facility] Comment on above: Performed By: #### U MAC, UMIC #### Testing performed at [address] [address] URINE MICROSCOPICon 02-24-20 19 Bacteria LM.HPF (Urine sed) [#/Area] Negative Normal NEGATIVE [facility] Comment on above: Performed By: #### U MAC, UMIC #### Testing performed at [address] [address] Casts LM.LPF (Urine sed) [#/Area] NONE Normal NONE [facility] Comment on above: Performed By: #### U MAC, UMIC #### Testing performed at [address] [address] CRYSTAL NONE Normal [facility] Comment on above: Performed By: #### U MAC, UMIC #### [place] [address] Epithelial cells LM.HPF (Urine sed) [#/Area] 1 TO 5 Normal [facility] Comment on above: Performed By: #### U MAC, UMIC #### Testing performed at [address] [address] Mucus Ql (Urine sed) Negative Normal NEGATIVE [facility] Comment on above: Performed By: #### U MAC, UMIC #### Testing performed at [address] [address] RBC (U) [#/Vol] Negative Normal NEGATIVE [facility] Comment on above: Performed By: #### U MAC, UMIC #### Testing performed at [address] [address] URINE COMMENT CULTURE CRITERIA NOT MET, NO CULTURE PERFORMED. Normal [facility] Comment on above: Performed By: #### U MAC, UMIC #### Testing performed at [address] [address] WBC (U) [#/Vol] 1 TO 5 Normal NEGATIVE [facility] Comment on above: Performed By: #### U MAC, UMIC #### Testing performed at [address] [address] MRI KNEE RIGHT WITHOUT CONTR Anne 01-25-2019 MRI KNEE RIGHT WITHOUT CONTRAST EXAM: MRI KNEE RIGHT WITHOUT CONTRAST REASON FOR EXAM: Medial right knee pain, chronic. Swelling. TECHNIQUE: Multiplanar, multisequence imaging of the right knee was performed without contrast. COMPARISON: Plain radiograph 12/13/2018. FINDINGS: Laterally, the iliotibial band, fibular collateral ligament, popliteus tendon, and biceps tendon are intact. The ACL is intact. The lateral meniscus demonstrates normal morphology with globular intrasubstance signal which does not meet MRI criteria for tear. There is low-grade chondrosis of the lateral compartment without deep chondral defect or subchondral marrow changes. Nonspecific cystic changes are present in the far posterior lateral tibial plateau. Medially, the medial collateral ligament is intact. Periligamentous edema is likely reactive. The PCL is intact. The medial meniscus demonstrates linear horizontal oblique undersurface signal involving the body and posterior horn junction compatible with medial meniscal tear. Mild meniscal extrusion is present. The root and horn attachments are intact. The medial articular cartilage demonstrates low to intermediate-grade chondrosis without full-thickness chondral defect. Marginal osteophytes are present. The extensor mechanism is intact. Thickening and intermediate signal involving the patellar tendon is compatible with patellar tendinosis. Patellofemoral articular cartilage demonstrates low to intermediate-grade chondrosis without full-thickness chondral defect or subchondral marrow changes. Edema within Hoffa's fat pad is nonspecific. The bone marrow signal is normal without fracture, osteonecrosis, or other marrow replacement process. A large intra-articular body is partially ossified within the superior medial recess measuring approximately 3.8 x 2.5 x 1.2 cm with surrounding edema and joint effusion. There is a smaller partially ossified intra-articular body more cephalad (series 3, image 19) which measures 2.7 cm in maximum dimension. The regional musculature is without muscle, strain or tendon tear. IMPRESSION: 1. Medial meniscal tear. 2. 2 large intra-articular bodies are noted within the superior medial recess of uncertain etiology. 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 3. 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 Normal [facility] IMPRESSION: 1. Media l meniscal tear. 2. 2 large intra-articular bodies are noted within the superior medial recess of uncertain etiology. 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 3. 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 [facility] [employer] EXAM: MRI KNEE RIGHT WITHOUT CONTRAST REASON FOR EXAM: Medial right knee pain, chronic. Swelling. TECHNIQUE: Multiplanar, multisequence imaging of the right knee was performed without contrast. COMPARISON: Plain radiograph 12/13/2018. FINDINGS: Laterally, the iliotibial band, fibular collateral ligament, popliteus tendon, and biceps tendon are intact. The ACL is intact. The lateral meniscus demonstrates normal morphology with globular intrasubstance signal which does not meet MRI criteria for tear. There is low-grade chondrosis of the lateral compartment without deep chondral defect or subchondral marrow changes. Nonspecific cystic changes are present in the far posterior lateral tibial plateau. Medially, the medial collateral ligament is intact. Periligamentous edema is likely reactive. The PCL is intact. The medial meniscus demonstrates linear horizontal oblique undersurface signal involving the body and posterior horn junction compatible with medial meniscal tear. Mild meniscal extrusion is present. The root and horn attachments are intact. The medial articular cartilage demonstrates low to intermediate-grade chondrosis without full-thickness chondral defect. Marginal osteophytes are present. The extensor mechanism is intact. Thickening and intermediate signal involving the patellar tendon is compatible with patellar tendinosis. Patellofemoral articular cartilage demonstrates low to intermediate-grade chondrosis without full-thickness chondral defect or subchondral marrow changes. Edema within Hoffa's fat pad is nonspecific. The bone marrow signal is normal without fracture, osteonecrosis, or other marrow replacement process. A large intra-articular body is partially ossified within the superior medial recess measuring approximately 3.8 x 2.5 x 1.2 cm with surrounding edema and joint effusion. There is a smaller partially ossified intra-articular body more cephalad (series 3, image 19) which measures 2.7 cm in maximum dimension. The regional musculature is without muscle, strain or tendon tear. [employer] User, Interfaces - 01/25/2019 1:27 PM EDT EXAM: MRI KNEE RIGHT WITHOUT CONTRAST REASON FOR EXAM: Medial right knee pain, chronic. Swelling. TECHNIQUE: Multiplanar, multisequence imaging of the right knee was performed without contrast. COMPARISON: Plain radiograph 12/13/2018. FINDINGS: Laterally, the iliotibial band, fibular collateral ligament, popliteus tendon, and biceps tendon are intact. The ACL is intact. The lateral meniscus demonstrates normal morphology with globular intrasubstance signal which does not meet MRI criteria for tear. There is low-grade chondrosis of the lateral compartment without deep chondral defect or subchondral marrow changes. Nonspecific cystic changes are present in the far posterior lateral tibial plateau. Medially, the medial collateral ligament is intact. Periligamentous edema is likely reactive. The PCL is intact. The medial meniscus demonstrates linear horizontal oblique undersurface signal involving the body and posterior horn junction compatible with medial meniscal tear. Mild meniscal extrusion is present. The root and horn attachments are intact. The medial articular cartilage demonstrates low to intermediate-grade chondrosis without full-thickness chondral defect. Marginal osteophytes are present. The extensor mechanism is intact. Thickening and intermediate signal involving the patellar tendon is compatible with patellar tendinosis. Patellofemoral articular cartilage demonstrates low to intermediate-grade chondrosis without full-thickness chondral defect or subchondral marrow changes. Edema within Hoffa's fat pad is nonspecific. The bone marrow signal is normal without fracture, osteonecrosis, or other marrow replacement process. A large intra-articular body is partially ossified within the superior medial recess measuring approximately 3.8 x 2.5 x 1.2 cm with surrounding edema and joint effusion. There is a smaller partially ossified intra-articular body more cephalad (series 3, image 19) which measures 2.7 cm in maximum dimension. The regional musculature is without muscle, strain or tendon tear. IMPRESSION IMPRESSION: 1. Medial meniscal tear. 2. 2 large intra-articular bodies are noted within the superior medial recess of uncertain etiology. 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 3. 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 [facility] COVID-19 virus antigen assay SARS-CoV-2 (COVID-19) Ag IA.rapid Ql (Resp) [facility] Work Phone: Vital Signs Date Time Vital Sign Value Performing Clinician Facility 06-14-2025 08:06-0400 Body height 160.02 cm Nish DINH Work Phone: [facility] 06-14-2025 08:06-0400 Body mass index (BMI) [Ratio] 29.9 kg/m2 Nish Bahena [employer] Work Phone: [facility] 06-14-2025 08:06-0400 Body weight 76.65 kg Nish Justiceder [employer] Work Phone: 3(751)[phone] [place] [address] 06-14-2025 08:06-0400 Diastolic blood pressure 77 mm[Hg] Nish Bahena [employer] Work Phone: 2(911)477-399877 [place] [address] 06-14-2025 08:06-0400 Heart rate 94 /min Nish Bahena [employer] Work Phone: 1(638)263-461631 [address] 06-14-2025 08:06-0400 Respiratory rate 18 /min Nish Bahena [employer] Work Phone: 2(154)[phone] [place] [address] 06-14-2025 08:06-0400 SaO2% (BldA) [Mass fraction] 96 % Nish Bahena [employer] Work Phone: 2(162)[phone] [place] [address] 06-14-2025 08:06-0400 Systolic blood pressure 126 mm[Hg] Nish Bahena [employer] Work Phone: 8(168)502-545077 [place] [address] 03-05-2024 14:34-0400 Body height 160.[address] Desmond Locke Work Phone: [facility] 03-05-2024 14:34-0400 Body mass index (BMI) [Ratio] 31.1 kg/m2 Dr. Desmond Locke Work Phone: [facility] 03-05-2024 14:34-0400 Body temperature 97.8 [degF] Dr. Desmond Lokce Work Phone: [facility] 03-05-2024 14:34-0400 Body weight 79.[address] Desmond Locke Work Phone: [facility] 03-05-2024 14:34-0400 Diastolic blood pressure 82 mm[Hg] Dr. Desmond Locke Work Phone: [facility] 03-05-2024 14:34-0400 Heart rate 72 /min Dr. Desmond Locke Work Phone: [facility] 03-05-2024 14:34-0400 Respiratory rate 16 /min Dr. Desmond Locke Work Phone: [facility] 03-05-2024 14:34-0400 SaO2% (BldA) [Mass fraction] 98 % Dr. Desmond Locke Work Phone: [facility] 03-05-2024 14:34-0400 Systolic blood pressure 138 mm[Hg] Dr. Desmond Locke Work Phone: [facility] 02-22-2024 13:59-0400 Body temperature 98 [degF] Dr. Desmond Locke Work Phone: [facility] 02-22-2024 13:59-0400 Diastolic blood pressure 74 mm[Hg] Dr. Desmond Locke Work Phone: [facility] 02-22-2024 13:59-0400 Heart rate 78 /min Dr. Desmond Locke Work Phone: [facility] 02-22-2024 13:59-0400 Respiratory rate 16 /min Dr. Desmond Locke Work Phone: [facility] 02-22-2024 13:59-0400 SaO2% (BldA) [Mass fraction] 99 % Dr. Desmond Locke Work Phone: [facility] 02-22-2024 13:59-0400 Systolic blood pressure 164 mm[Hg] Dr. Desmond Locke Work Phone: [facility] 02-22-2024 08:51-0400 Body height 160.[address] Desmond Locke Work Phone: [facility] 02-22-2024 08:51-0400 Body mass index (BMI) [Ratio] 31.4 kg/m2 Dr. Desmond Locke Work Phone: [facility] 02-22-2024 08:51-0400 Body weight 80.[address] Desmond Locke Work Phone: [facility] 11-16-2023 15:24-0500 Body height 160.[address] Desmond Locke Work Phone: [facility] 11-16-2023 15:21-0500 Body mass index (BMI) [Ratio] 31.3 kg/m2 Dr. Desmond Locke Work Phone: [facility] 11-16-2023 15:21-0500 Body weight 80.[address] Desmond Locke Work Phone: [facility] 11-16-2023 15:21-0500 Diastolic blood pressure 50 mm[Hg] Dr. Desmond Locke Work Phone: [facility] 11-16-2023 15:21-0500 Heart rate 72 /min Dr. Desmond Locke Work Phone: [facility] 11-16-2023 15:21-0500 Respiratory rate 16 /min Dr. Desmond Locke Work Phone: [facility] 11-16-2023 15:21-0500 Systolic blood pressure 110 mm[Hg] Dr. Desmond Locke Work Phone: [facility] 04-19-2023 16:25-0400 Body height 160.[address] Desmond Locke Work Phone: [facility] 04-19-2023 16:25-0400 Body mass index (BMI) [Ratio] 31.8 kg/m2 Dr. Desmond Locke Work Phone: [facility] 04-19-2023 16:25-0400 Body temperature 98.2 [degF] Dr. Desmond Locke Work Phone: [facility] 04-19-2023 16:25-0400 Body weight 81.[address] Desmond Locke Work Phone: [facility] 04-19-2023 16:25-0400 Diastolic blood pressure 70 mm[Hg] Dr. Desmond Locke Work Phone: [facility] 04-19-2023 16:25-0400 Heart rate 76 /min Dr. Desmond Locke Work Phone: [facility] 04-19-2023 16:25-0400 Respiratory rate 14 /min Dr. Desmond Locke Work Phone: [facility] 04-19-2023 16:25-0400 SaO2% (BldA) [Mass fraction] 97 % Dr. Desmond Locke Work Phone: [facility] 04-19-2023 16:25-0400 Systolic blood pressure 120 mm[Hg] Dr. Desmond Locke Work Phone: [facility] 04-11-2023 09:27-0400 Body mass index (BMI) [Ratio] 31.5 kg/m2 Dr. Desmond Locke Work Phone: [facility] 04-11-2023 09:27-0400 Body weight 80.[address] Desmond Locke Work Phone: [facility] 04-11-2023 09:27-0400 Diastolic blood pressure 79 mm[Hg] Dr. Desmond Locke Work Phone: [facility] 04-11-2023 09:27-0400 Heart rate 72 /min Dr. Desmond Locke Work Phone: [facility] 04-11-2023 09:27-0400 Respiratory rate 16 /min Dr. Desmond Locke Work Phone: [facility] 04-11-2023 09:27-0400 Systolic blood pressure 132 mm[Hg] Dr. Desmond Locke Work Phone: [facility] 01-26-2023 18:40-0400 Respiratory rate 18 /min Dr. Desmond Locke Work Phone: [facility] 01-26-2023 13:47-0400 Body height 160.[address] Desmond Locke Work Phone: [facility] 01-26-2023 13:47-0400 Body mass index (BMI) [Ratio] 32.8 kg/m2 Dr. Desmond Locke Work Phone: [facility] 01-26-2023 13:47-0400 Body temperature 95.7 [degF] Dr. Desmond Locke Work Phone: [facility] 01-26-2023 13:47-0400 Body weight 83.[address] Desmond Locke Work Phone: [facility] 01-26-2023 13:47-0400 Diastolic blood pressure 87 mm[Hg] Dr. Desmond Locke Work Phone: [facility] 01-26-2023 13:47-0400 Heart rate 82 /min Dr. Desmond Locke Work Phone: [facility] 01-26-2023 13:47-0400 SaO2% (BldA) [Mass fraction] 99 % Dr. Desmond Locke Work Phone: [facility] 01-26-2023 13:47-0400 Systolic blood pressure 166 mm[Hg] Dr. Desmond Locke Work Phone: [facility] 01-25-2023 12:25-0400 Body mass index (BMI) [Ratio] 32.8 kg/m2 Dr. Desmond Locke Work Phone: [facility] 01-25-2023 12:25-0400 Body temperature 98.3 [degF] Dr. Desmond Locke Work Phone: [facility] 01-25-2023 12:25-0400 Body weight 83.[address] Desmond Locke Work Phone: [facility] 01-25-2023 12:25-0400 Diastolic blood pressure 70 mm[Hg] Dr. Desmond Locke Work Phone: [facility] 01-25-2023 12:25-0400 Heart rate 74 /min Dr. Desmond Locke Work Phone: [facility] 01-25-2023 12:25-0400 Respiratory rate 12 /min Dr. Desmond Locke Work Phone: [facility] 01-25-2023 12:25-0400 SaO2% (BldA) [Mass fraction] 98 % Dr. Desmond Locke Work Phone: [facility] 01-25-2023 12:25-0400 Systolic blood pressure 132 mm[Hg] Dr. Desmond Locke Work Phone: [facility] 01-11-2023 16:49-0400 Body mass index (BMI) [Ratio] 32.8 kg/m2 Dr. Desmond Locke Work Phone: [facility] 01-11-2023 16:49-0400 Body temperature 98.1 [degF] Dr. Desmond Locke Work Phone: [facility] 01-11-2023 16:49-0400 Body weight 83.[address] Desmond Locke Work Phone: [facility] 01-11-2023 16:49-0400 Diastolic blood pressure 74 mm[Hg] Dr. Desmond Locke Work Phone: [facility] 01-11-2023 16:49-0400 Heart rate 83 /min Dr. Desmond Locke Work Phone: [facility] 01-11-2023 16:49-0400 Respiratory rate 12 /min Dr. Desmond Locke Work Phone: [facility] 01-11-2023 16:49-0400 SaO2% (BldA) [Mass fraction] 98 % Dr. Desmond Locke Work Phone: [facility] 01-11-2023 16:49-0400 Systolic blood pressure 130 mm[Hg] Dr. Desmond Locke Work Phone: [facility] 10-11-2022 07:41-0500 Body height 160.[address] Desmond Locke Work Phone: [facility] 10-11-2022 07:41-0500 Body mass index (BMI) [Ratio] 34.4 kg/m2 Dr. Desmond Locke Work Phone: [facility] 10-11-2022 07:41-0500 Body temperature 97.8 [degF] Dr. Desmond Locke Work Phone: [facility] 10-11-2022 07:41-0500 Body weight 88.[address] Desmond Locke Work Phone: [facility] 10-11-2022 07:41-0500 Diastolic blood pressure 77 mm[Hg] Dr. Desmond Locke Work Phone: [facility] 10-11-2022 07:41-0500 Heart rate 76 /min Dr. Desmond Locke Work Phone: [facility] 10-11-2022 07:41-0500 Respiratory rate 18 /min Dr. Desmond Locke Work Phone: [facility] 10-11-2022 07:41-0500 SaO2% (BldA) [Mass fraction] 96 % Dr. Desmond Locke Work Phone: [facility] 10-11-2022 07:41-0500 Systolic blood pressure 129 mm[Hg] Dr. Desmond Locke Work Phone: [facility] 09-29-2022 16:13-0500 Body temperature 97.7 [degF] Dr. Desmond Locke Work Phone: [facility] 09-29-2022 16:13-0500 Body weight 87.[address] Desmond Locke Work Phone: [facility] 09-29-2022 16:13-0500 Diastolic blood pressure 74 mm[Hg] Dr. Desmond Locke Work Phone: [facility] 09-29-2022 16:13-0500 Heart rate 96 /min Dr. Desmond Locke Work Phone: [facility] 09-29-2022 16:13-0500 Respiratory rate 18 /min Dr. Desmond Locke Work Phone: [facility] 09-29-2022 16:13-0500 SaO2% (BldA) [Mass fraction] 96 % Dr. Desmond Locke Work Phone: [facility] 09-29-2022 16:13-0500 Systolic blood pressure 116 mm[Hg] Dr. Desmond Locke Work Phone: [facility] 09-20-2022 10:09-0500 Body height 160.[address] Desmond Locke Work Phone: [facility] Work Phone: 09-20-2022 10:09-0500 Body mass index (BMI) [Ratio] 34.4 kg/m2 Dr. Desmond Locke Work Phone: [facility] 09-20-2022 10:09-0500 Body temperature 96.5 [degF] Dr. Desmond Locke Work Phone: [facility] 09-20-2022 10:09-0500 Body weight 88.[address] Desmond Locke Work Phone: [facility] 09-20-2022 10:09-0500 Diastolic blood pressure 64 mm[Hg] Dr. Desmond Locke Work Phone: [facility] 09-20-2022 10:09-0500 Heart rate 100 /min Dr. Desmond Locke Work Phone: [facility] 09-20-2022 10:09-0500 Respiratory rate 18 /min Dr. Desmond Locke Work Phone: [facility] 09-20-2022 10:09-0500 SaO2% (BldA) [Mass fraction] 94 % Dr. Desmond Locke Work Phone: [facility] 09-20-2022 10:09-0500 Systolic blood pressure 104 mm[Hg] Dr. Desmond Locke Work Phone: [facility] 08-23-2022 09:55-0400 Body mass index (BMI) [Ratio] 35.4 kg/m2 Dr. Desmond Locke Work Phone: [facility] 08-23-2022 09:55-0400 Body weight 90.[address] Desmond Locke Work Phone: [facility] 08-23-2022 09:55-0400 Diastolic blood pressure 82 mm[Hg] Dr. Desmond Locke Work Phone: [facility] 08-23-2022 09:55-0400 Heart rate 86 /min Dr. Desmond Locke Work Phone: [facility] 08-23-2022 09:55-0400 Respiratory rate 16 /min Dr. Dsemond Locke Work Phone: [facility] 08-23-2022 09:55-0400 Systolic blood pressure 128 mm[Hg] Dr. Desmond Locke Work Phone: [facility] 07-27-2022 16:28-0400 Body mass index (BMI) [Ratio] 35 kg/m2 Dr. Desmond Locke Work Phone: [facility] 07-27-2022 16:28-0400 Body temperature 97.9 [degF] Dr. Desmond Locke Work Phone: [facility] 07-27-2022 16:28-0400 Body weight 89.[address] Desmond Locke Work Phone: [facility] 07-27-2022 16:28-0400 Diastolic blood pressure 74 mm[Hg] Dr. Desmond Locke Work Phone: [facility] 07-27-2022 16:28-0400 Heart rate 70 /min Dr. Desmond Locke Work Phone: [facility] 07-27-2022 16:28-0400 Respiratory rate 14 /min Dr. Desmond Locke Work Phone: [facility] 07-27-2022 16:28-0400 SaO2% (BldA) [Mass fraction] 96 % Dr. Desmond Locke Work Phone: [facility] 07-27-2022 16:28-0400 Systolic blood pressure 136 mm[Hg] Dr. Desmond Locke Work Phone: [facility] 06-24-2022 14:15-0400 Body height 160.[address] Desmond Locke Work Phone: [facility] Work Phone: 06-24-2022 14:15-0400 Body mass index (BMI) [Ratio] 35.5 kg/m2 Dr. Desmond Locke Work Phone: [facility] Work Phone: 06-24-2022 14:15-0400 Body weight 90.[address] Desmond Locke Work Phone: [facility] Work Phone: 06-24-2022 14:15-0400 Diastolic blood pressure 68 mm[Hg] Dr. Desmond [facility] Phone: [facility] [facility] Work Phone: 06-24-2022 14:15-0400 Heart rate 88 /min Dr. Desmond Locke Work Phone: [facility] Work Phone: 06-24-2022 14:15-0400 Respiratory rate 16 /min Dr. Desmond Locke Work Phone: [facility] Work Phone: 06-24-2022 14:15-0400 Systolic blood pressure 148 mm[Hg] Dr. Desmond Locke Work Phone: [facility] Work Phone: 06-15-2022 10:47-0400 Diastolic blood pressure 98 mm[Hg] Dr. Desmond Locke Work Phone: [facility] Work Phone: 06-15-2022 10:47-0400 Systolic blood pressure 162 mm[Hg] Dr. Desmond Locke Work Phone: [facility] Work Phone: 06-15-2022 10:24-0400 Body mass index (BMI) [Ratio] 36.3 kg/m2 Dr. Desmond Locke Work Phone: [facility] Work Phone: 06-15-2022 10:24-0400 Body temperature 98.1 [degF] Dr. Desmond Locke Work Phone: [facility] Work Phone: 06-15-2022 10:24-0400 Body weight 92.[address] Desmond Locke Work Phone: [facility] Work Phone: 06-15-2022 10:24-0400 Heart rate 75 /min Dr. Desmond Locke Work Phone: [facility] Work Phone: 06-15-2022 10:24-0400 Respiratory rate 14 /min Dr. Desmond Locke Work Phone: [facility] Work Phone: 06-15-2022 10:24-0400 SaO2% (BldA) [Mass fraction] 97 % Dr. Desmond Locke Work Phone: [facility] Work Phone: 06-14-2022 04:48-0400 Diastolic blood pressure 70 mm[Hg] [facility] Work Phone: 06-14-2022 04:48-0400 Heart rate 98 /min [facility] Work Phone: 06-14-2022 04:48-0400 Respiratory rate 27 /min [facility] Work Phone: 06-14-2022 04:48-0400 SaO2% (BldA) [Mass fraction] 94 % [facility] Work Phone: 06-14-2022 04:48-0400 Systolic blood pressure 132 mm[Hg] [facility] Work Phone: 06-14-2022 01:21-0400 Body height 160.02 cm [facility] Work Phone: 06-14-2022 01:21-0400 Body mass index (BMI) [Ratio] 37.3 kg/m2 [facility] Work Phone: 06-14-2022 01:21-0400 Body temperature 98.5 [degF] [facility] Work Phone: 06-14-2022 01:21-0400 Body weight 95.7 kg [facility] Work Phone: 01-09-2020 15:55-0400 BMI (Body Mass Index) 34.01 kg/m2 [facility] 01-09-2020 15:55-0400 Body Temperature 97.5 [degF] [facility] 01-09-2020 15:55-0400 Body weight 87.[address] [facility] 01-09-2020 15:55-[address] [facility] 10-10-2019 14:20-0500 BMI (Body Mass Index) 34.01 kg/m2 [facility] 10-10-2019 14:20-0500 Body Temperature 98.2 [degF] [facility] 10-10-2019 14:20-0500 Body weight 87.09 kg [facility] 10-10-2019 14:20-0500 Height 160 cm [facility] 09-17-2019 09:08-0500 BP Diastolic 62 mm[Hg] [facility] 09-17-2019 09:08-0500 BP Systolic 113 mm[Hg] [facility] 09-17-2019 09:08-0500 Pulse (Heart Rate) 73 /min [facility] 09-17-2019 09:08-0500 Pulse Oximetry 94 % [facility] 09-17-2019 09:08-0500 Respiratory Rate 20 /min [facility] 09-17-2019 08:23-0500 Body Temperature 98.29 [degF] [facility] 09-17-2019 05:46-0500 BMI (Body Mass Index) 34.01 kg/m2 [facility] 09-17-2019 05:46-0500 Body weight 87.[address] [facility] 09-17-2019 05:46-[address] [facility] 09-05-2019 13:22-0500 BMI (Body Mass Index) 34.01 kg/m2 [facility] 09-05-2019 13:22-0500 Body weight 87.[address] [facility] 09-05-2019 13:22-0500 BP Diastolic 66 mm[Hg] [facility] 09-05-2019 13:22-0500 BP Systolic 122 mm[Hg] [facility] 09-05-2019 13:22-0500 Height [address] [facility] 09-05-2019 13:22-0500 Pulse (Heart Rate) 82 /min [facility] 09-05-2019 13:22-0500 Pulse Oximetry 98 % [facility] 09-05-2019 13:22-0500 Respiratory Rate 16 /min [facility] 02-23-2019 14:47-0400 BP Diastolic 73 mm[Hg] [facility] [employer] 02-23-2019 14:47-0400 BP Systolic 132 mm[Hg] [facility] [employer] 02-23-2019 14:47-0400 Pulse (Heart Rate) 91 /min [facility] [employer] 02-23-2019 14:47-0400 Pulse Oximetry 96 % [facility] [employer] 02-23-2019 14:20-0400 BMI (Body Mass Index) 35.96 kg/m2 [facility] 02-23-2019 14:20-0400 Body Temperature 97.39 [degF] [facility] 02-23-2019 14:20-0400 Height 160 cm [facility] [employer] 02-23-2019 14:20-0400 Respiratory Rate 14 /min [facility] [employer] 02-23-2019 14:20-0400 Weight 92.08 kg [facility] [employer] 02-23-2019 10:51-0400 BMI (Body Mass Index) 35.96 kg/m2 [facility] 02-23-2019 10:51-0400 BP Diastolic 76 mm[Hg] [facility] 02-23-2019 10:51-0400 BP Systolic 128 mm[Hg] [facility] 02-23-2019 10:51-0400 Height 160 cm [facility] 02-23-2019 10:51-0400 Pulse (Heart Rate) 67 /min [facility] 02-23-2019 10:51-0400 Pulse Oximetry 97 % [facility] 02-23-2019 10:51-0400 Respiratory Rate 16 /min [facility] 02-23-2019 10:51-0400 Weight 92.[address] [facility] 02-21-2019 15:00-0400 BMI (Body Mass Index) 36.31 kg/m2 [facility] 02-21-2019 15:00-0400 Body Temperature 97.7 [degF] [facility] 02-21-2019 15:00-[address] [facility] 02-21-2019 15:00-[address] [facility] 01-10-2019 15:06-0400 BMI (Body Mass Index) 36.31 kg/m2 [facility] 01-10-2019 15:06-0400 Body Temperature 97.81 [degF] [facility] 01-10-2019 15:06-[address] [facility] 01-10-2019 15:06-[address] [facility] Encounters Encounter Date Encounter Type Care Provider Facility Start: 06-14-2025 End: 06-14-2025 Patient encounter procedure Kellie DINH -[facility] Work Phone: Start: 06-14-2025 End: 06-14-2025 ambulatory Nish Bahena [employer] Work Phone: -[facility] Start: 10-15-2024 End: 10-15-2024 ambulatory Nish Bahena Facility:[facility] Start: 10-01-2024 End: 10-01-2024 ambulatory Nish Bahena Facility:[facility] Start: 09-06-2024 End: 09-06-2024 ambulatory Nish Bahena Facility:[facility] Start: 08-30-2024 End: 08-30-2024 ambulatory Nish Bahena Facility:[facility] Start: 03-05-2024 End: 03-05-2024 Emergency department patient visit Dr. Desmond Locke Work Phone: [facility] Work Phone: Start: 02-22-2024 End: 02-22-2024 Emergency department patient visit Dr. Desmond Locke Work Phone: [facility] Work Phone: Start: 01-25-2024 End: 01-25-[address] Desmond Locke Work Phone: [facility] Work Phone: Start: 01-25-2024 End: 01-25-[address] [facility] Work Phone: Start: 11-16-2023 End: 11-16-[address] Desmond Locke Work Phone: [facility] Work Phone: Start: 10-07-2023 End: 10-07-2023 ambulatory [facility] Work Phone: Start: 10-07-2023 End: 10-07-2023 Patient encounter procedure [facility] Work Phone: Start: 04-27-2023 End: 04-27-[address] Desmond Locke Work Phone: [facility] Work Phone: Start: 04-27-2023 End: 04-27-[address] Desmond Locke [facility] Work Phone: Start: 04-19-2023 End: 04-19-[address] Desmond Locke Work Phone: [facility] Work Phone: Start: 04-11-2023 End: 04-11-[address] Desmond Locke Work Phone: [facility] Work Phone: Start: 01-26-2023 End: 01-26-2023 Emergency department patient visit Dr. Desmond Locke Work Phone: [facility]Emergency Department Start: 01-25-2023 End: 01-25-[address] Desmond Locke Work Phone: [facility] Start: 01-11-2023 End: 01-11-[address] Desmond Locke Work Phone: [facility] Start: 2022 End: [address] Desmond Locke Work Phone: [facility] Work Phone: Start: 2022 End: [address] Desmond Locke Work Phone: [facility]-Laboratory, Specimen Start: 2022 End: [address] Desmond Locke Work Phone: [facility] Start: 10-11-2022 End: 10-11-[address] Desmond Locke Work Phone: [facility] Work Phone: Start: 10-11-2022 End: 10-11-[address] Desmond Locke [facility] Start: 10-11-2022 End: 10-11-[address] Desmond Locke Work Phone: [facility] Start: 10-04-2022 End: 10-04-[address] Desmond Locke Work Phone: [facility] Work Phone: Start: 10-04-2022 End: 10-04-[address] Desmond Locke Work Phone: [facility] Start: 09-29-2022 End: 09-29-[address] Desmond Locke Work Phone: [facility] Internal [facility] Start: 09-20-2022 End: 09-20-[address] Desmond Locke Work Phone: [facility] Work Phone: Start: 09-20-2022 End: 09-20-[address] Desmond Locke Work Phone: [facility] Start: 08-23-2022 End: 08-23-[address] Desmond Locke Work Phone: [facility] Start: 08-09-2022 End: 08-09-[address] Desmond Locke Work Phone: [facility] Work Phone: Start: 08-09-2022 End: 08-09-[address] Desmond Locke Work Phone: [facility]-Sleep Lab Start: 07-27-2022 End: 07-27-[address] Desmond Locke Work Phone: [facility] Internal [facility] Start: 07-12-2022 Non-patient / Non-visit Dr. Lundberg Work Phone: [facility] Start: 07-12-2022 End: 07-12-[address] Desmond Locke Work Phone: [facility] Work Phone: Start: 07-12-2022 End: 07-12-[address] Desmond Locke Work Phone: [facility] Start: 06-25-2022 End: 06-25-[address] Desmond Locke Work Phone: [facility] Work Phone: Start: 06-25-2022 End: 06-25-[address] Desmond Locke Work Phone: [facility]Sleep Lab Start: 06-24-2022 End: 06-24-[address] Desmond Locke Work Phone: [facility] Start: 06-22-2022 Non-patient / Non-visit Dr. Lundberg Work Phone: [facility] Start: 06-18-2022 Release of Information Provider Not In System [facility] Historical Mapping Start: 06-18-2022 LORENZA Legacy Provider Not In System [facility] Historical Mapping Start: 06-15-2022 End: 06-15-[address] Desmond Locke Work Phone: [facility] Internal Medicine Start: 06-14-2022 End: 06-14-2022 Emergency department patient visit [facility]gency Department Start: 01-01-2021 End: 01-01-2021 Orders Only Breana Montanachelsy Robins Work Phone: [facility] Start: 01-09-2020 End: 01-09-2020 Office outpatient visit 10 minutes Anthony Hoyt Work Phone: [facility] Comment on above: History of total kne e arthroplasty, right (Primary Dx) Start: 10-10-2019 End: 10-10-2019 Postop follow up visit related to original px Anthony Hoyt Work Phone: [facility] Comment on above: History of total kne e arthroplasty, right (Primary Dx) Start: 10-10-2019 End: 10-10-2019 Subsequent hospital visit by physician Guillermo Franco Work Phone: [facility] Start: 09-17-2019 End: 09-17-2019 Subsequent hospital visit by physician Anthony Hoyt Work Phone: [facility] Periop Comment on above: Loose body of right knee Start: 09-05-2019 End: 09-05-2019 Office outpatient visit 15 minutes Klaus Christine Work Phone: [facility] Comment on above: Pre-operative cardio vascular examination (Primary Dx); Mixed hyperlipidemia; S/P CABG x 3; Left bundle-branch block; Type 2 diabetes mellitus without complication, without long-term current use of insulin; Smoker; Essential hypertension Start: 06-12-2019 End: 06-12-2019 Telephone encounter Clarissa Arnold [facility] Comment on above: Other Start: 02-28-2019 End: 02-28-2019 Patient encounter procedure Other Other [facility] Start: 02-27-2019 End: 02-27-2019 Telephone encounter Kelli Loaiza [facility] Comment on above: Results Start: 02-23-2019 End: 02-23-2019 Patient encounter procedure Anthony Hoyt Work Phone: [facility] Pre Admission Comment on above: Preop testing (Prima ry Dx) Start: 02-23-2019 End: 02-23-2019 Office consultation new/estab patient 30 min Klaus Christine Work Phone: [facility] Comment on above: Pre-operative cardio vascular examination (Primary Dx); Hyperlipidemia, unspecified hyperlipidemia type; S/P CABG x 3; Smoker; Essential hypertension; Family history of coronary artery disease; Type 2 diabetes mellitus without complication, without long-term current use of insulin Start: 02-21-2019 End: 02-21-2019 Office outpatient visit 25 minutes Anthony Hoyt Work Phone: [facility] Comment on above: Chronic pain of righ t knee (Primary Dx) Start: 02-21-2019 End: 02-21-2019 Letter encounter Kelli Loaiza [facility] Start: 02-21-2019 End: 02-21-2019 Patient encounter procedure Kelli Loaiza [facility] Comment on above: Pre-operative cleara nce (Primary Dx) Start: 02-05-2019 End: 02-05-2019 Telephone encounter Sammi Hinds [facility] Comment on above: Appointment Start: 01-25-2019 End: 01-25-2019 Subsequent hospital visit by physician Anthony Hoyt Work Phone: [facility] MRI Comment on above: Arrived Start: 01-10-2019 End: 01-10-2019 Office outpatient new 30 minutes Anthony Hoyt Work Phone: [facility] Comment on above: Right knee pain, uns pecified chronicity (Primary Dx); Abnormal x-ray Start: 01-10-2019 End: 01-10-2019 Subsequent hospital visit by physician Anthony Hoyt Work Phone: [facility] Start: 01-10-2019 End: 01-10-2019 Letter encounter Provider Cele [facility] Start: 01-05-2019 Patient encounter procedure Lanie Arenas Monet Facility:[facility] Start: 01-05-2019 Patient encounter procedure Facility:[address] [place] [address] Procedures Date Procedure Procedure Detail Performing Clinician Start: 02-22-2024 Plain chest X-ray Dr. Linda Locke Work Phone: Start: 10-07-2023 US scan of thyroid Start: 01-26-2023 Plain x-ray of pelvi s and lower extremity Dr. Desmond Locke Work Phone: Start: 01-26-2023 CT of abdomen and pe lvis without contrast Dr. Desmond Locke Work Phone: Start: 01-25-2023 X-ray of lumbar spin e, two or three views Dr. Desmond Locke Work Phone: Start: 10-04-2022 US scan of thyroid Dr. Desmond Locke Work Phone: Start: 07-12-2022 Cardiovascular stres s test using pharmacologic stress agent Dr. Desmond Locke Work Phone: Start: 06-14-2022 CT angiography of ch est with contrast Start: 06-14-2022 Plain chest X-ray Start: 09-17-2019 Glucose blood reagen t strip Cynthia Browning Work Phone: Start: 09-17-2019 Blood typing serologic abo Anthony Hoyt Work Phone: Start: 02-23-2019 Blood typing serologic abo Anthony Hoyt Work Phone: Start: 02-23-2019 CBC, EDIF, PLATELET Sco sukhwinder Hoyt Work Phone: Start: 02-23-2019 Comprehensive metabo lic panel Anthony Hoyt Work Phone: Start: 02-23-2019 Cul prsmptv pthgnc organism scrn w/colony estimj Anthony Hoyt Work Phone: Start: 02-23-2019 Prothrombin time Anthony Hoyt Work Phone: Start: 01-25-2019 MRI of knee Anthony Estrada er Work Phone: Start: 03-24-2014 History of coronary artery bypass grafting History of coronary artery bypass graft x 3 Kellie Coronado [employer] Comment on above: CARLOS - LAD, SVG - OM of CX, SVG - RCA 03/29/14 @ [facility] Viral antigen assay Plan of Treatment Date Care Activity Detail Author Start: 06-24-2022 Influenza vaccination Sequenti al Influenza Vaccine (#1) [facility] Start: 06-15-2022 Patient referral [facility] Work Phone: Start: 06-14-2022 [facility] Work Phone: Start: 09-03-2020 End: 09-03-2020 Office Visit 09/03/2020 Office Visit Cardiovascular Medicine Klaus Christine DO [address] [place] [address] [facility] Cardiology Start: 06-24-2020 Influenza vaccinatio n given Sequential Influenza Vaccine (#1) [facility] Start: 02-26-2020 End: 02-26-[address] [facility] Card[facility] Start: 01-09-2020 End: 01-09-2020 Office Visit 01/09/2020 Office Visit Orthopaedics Anthony Hoyt MD [address] [place] [address] [phone] [facility] Start: 10-10-2019 End: 10-10-2019 Office Visit 10/10/2019 Office Visit Orthopaedics Guillermo Franco, PROCEDURES RN-APPLICATIONS ENGINEERING MANAGER [address] [place] [address] [phone] [facility] Start: 09-17-2019 End: 09-17-2019 Procedure Pass [facility] Comment on above: Loose body of right knee ARTHROTOMY KNEE - lo ose body - right OUTPATIENT Start: 09-10-2019 End: 09-10-2019 Pre-Operative Nurse Assessment 09/10/2019 Pre-Operative Nurse Assessment Internal Medicine [facility] Pre Admission Start: 09-05-2019 End: 09-05-2020 LIPID PANEL W CALCULATED LDL LIPID PANEL W CALCULATED LDL Lab Routine Mixed hyperlipidemia Expected: 09/05/2019, Expires: 09/05/2020 [facility] Comment on above: Expected: 09/05/2019 , Expires: 09/05/2020 Start: 06-24-2019 Influenza vaccination [facility] Start: 03-05-2019 End: 03-05-2019 Procedure Pass [facility] Comment on above: Loose body of right knee ARTHROTOMY KNEE Righ t ARTHROTOMY KNEE Righ t (loose body excision, open) Start: 02-23-2019 End: 02-24-2020 LIPID PANEL W CALCULATED LDL LIPID PANEL W CALCULATED LDL Lab Routine Hyperlipidemia, unspecified hyperlipidemia type Expected: 02/23/2019, Expires: 02/24/2020 [facility] Comment on above: Expected: 02/23/2019 , Expires: 02/24/2020 Start: 02-23-2019 End: 02-23-2019 Pre-Operative Nurse Assessment 02/23/2019 Pre-Operative Nurse Assessment Internal Medicine Anthony Hoyt MD [address] [place] [address] [phone] Preop testing (Primary Dx) [facility] Pre Admission Comment on above: Preop testing (Prima ry Dx) Start: 02-23-2019 End: 03-23-2019 URINALYSIS, MACRO URINALYSIS, MACRO Fluids Routine Preop testing Expected: 02/23/2019, Expires: 03/23/2019 [facility] Comment on above: Expected: 02/23/2019 , Expires: 03/23/2019 Start: 02-23-2019 End: 02-23-[address] [facility] Cardiology Start: 02-21-2019 End: 02-21-2019 Office Visit 02/21/2019 Office Visit Orthopaedics Anthony Hoyt MD [address] [place] [address] [phone] [facility] Start: 01-10-2019 End: 01-10-2019 Hospital Encounter [facility] Rad[facility] Comment on above: Arrived Right knee pain, uns pecified chronicity (Primary Dx) Start: 06-24-2018 Influenza vaccination INFLUENZA VACC INE (#1) [facility] Start: 2011 Administration of he rpes zoster vaccine Zoster Vaccines (1 of 2) [facility] Start: 2011 Colonoscopy [facility] Start: 2011 Protein mass conc COLON CANCER SCREENING DISCUSSION [facility] Start: 2011 Screening for malign ant neoplasm of colon [facility] Start: 2011 Zoster vaccine hzv l renetta for subcutaneous use ZOSTER (SHINGLES) VACCINE (1 of 2) [facility] Start: 2001 Fasting lipid profile LIPID SCREENIN G [facility] Start: 2001 Protein mass conc MAMMOGRAM SC REENING DISCUSSION [facility] Start: 2001 Screening mammography MAMMOGRA M SCREENING DISCUSSION [facility] Start: 1982 Screening for malign ant neoplasm of cervix [facility] Start: 1980 Third diphtheria, tetanus and acellular pertussis (DTaP) vaccination TDAP (ADULT) [facility] Start: 1979 Hepatitis C antibody , confirmatory test Hepatitis C Screening [facility] Start: 1979 Hepatitis C screening Hepatitis C Sc reening [facility] Start: 1979 Tetanus vaccination TETANUS [facility] Start: 1977 COVID-19 Vaccine (1 of 2) COVID-19 Vaccine (1 of 2) [facility] Start: 1976 HIV screening HIV Screening [facility] Start: 1974 HIV screening HIV SCREENING DISCUSSI ON [facility] Start: 1973 Adolescent depressio n screening assessment Depression Screening (PHQ9) [facility] Start: 1973 Depression screening using PHQ-9 (Patient Health Questionnaire 9) score Depression Screening (PHQ-2/9) [facility] Start: 1971 Albumin DL <= 20 mg/ L (U) [Mass/Vol] Urine Microalbumin [facility] Start: 1971 Diabetic foot examination Foot Exam [facility] Start: 1971 Ophthalmic examinati on and evaluation Ophthalmology Exam [facility] Start: 1964 History and physical examination, annual for health maintenance Wellness Visit [facility] Start: 05-15-1962 COVID-19 Vaccine (#1) COVID-19 Vacci ne (#1) [facility] Start: 1961 HbA1c (Bld) [Mass fraction] A1C [facility] Start: 1961 Hepatitis C antibody , confirmatory test HEPATITIS C VIRUS SCREENING [facility] Start: 1961 Screening for malign ant neoplasm of cervix Pap Smear [facility] Start: 1961 Screening for malign ant neoplasm of colon [facility] Start: 1961 Screening mammography Mammogram [facility] Start: 1961 Tetanus vaccination Tetanus: Every 1 0yrs [facility] 24 Hour ECG [facility] Work Phone: Blood chemistry [facility] Work Phone: Blood chemistry [facility] CBC, EDIF, PLATELET CBC, EDIF, P LATELET Lab Routine Preop testing 02/23/2019 2:40 PM EDT [facility] [employer] Comprehensive metabo lic 2000 panel COMPREHENSIVE METABOLIC PANEL Lab Routine Preop testing 02/23/2019 2:40 PM EDT [facility] Hepatic function panel [facility] Lipid 1996 panel - S vonda or Plasma [facility] Work Phone: Lipid 1996 panel - S vonda or Plasma [facility] MRI of knee MRI KNEE RIGHT W ITHOUT CONTRAST Imaging Routine Abnormal x-ray [facility]: [facility] Comment on above: Ordered: 01/10/2019 NM Heart Views W str ess and W radionuclide IV [facility] Work Phone: Patient Education [facility] Work Phone: Patient referral [facility] Work Phone: PROTIME-INR PROTIME-INR Lab Routine Preop testing 02/23/2019 2:40 PM EDT [facility] Radiography for bone length studies XR BONE LENGTH STUDY Imaging Routine Right knee pain, unspecified chronicity 01/10/2019 2:40 PM EDT [facility] Radiologic examinati on of knee XR KNEE RIGHT 4+ VIEWS Imaging Routine Right knee pain, unspecified chronicity 01/10/2019 2:40 PM EDT [facility] SCREEN: MRSA ONLY, N АНДРЕЙ (ISOLATION SCREEN) SCREEN: MRSA ONLY, NARES (ISOLATION SCREEN) Microbiology Routine Preop testing 02/23/2019 2:40 PM EDT [facility] Standard ECG [facility] Comment on above: Ordered: 09/05/2019 SURGICAL PATHOLOGY REQUEST SURGICAL PATHOLOGY REQUEST Surg Path Routine Loose body of right knee ONE TIME for 1 Occurrences starting 09/17/2019 [facility] Comment on above: ONE TIME for 1 Occur rences starting 09/17/2019 Thyroid stimulating hormone measurement [facility] Work Phone: Thyroid stimulating hormone measurement [facility] Thyroxine measurement [facility] Work Phone: Thyroxine measurement [facility] Triiodothyronine, fr ee measurement [facility] Work Phone: Triiodothyronine, fr ee measurement [facility] TYPE AND SCREEN - POSSIBLE TRANSFUSION TYPE AND SCREEN - POSSIBLE TRANSFUSION Blood Bank Routine Preop testing 02/23/2019 2:40 PM EDT [email or web address] Work Phone: X-ray of right knee XR KNEE RIGH T 3 VIEWS Imaging Routine History of total knee arthroplasty, right 10/10/2019 2:12 PM [facility] Immunizations Immunization Date Immunization Notes Care Provider Harsha henry 09-07-2021 Covid (Pfizer) Dr. Desmond ma Work Phone: [facility] 08-17-2021 Covid (Pfizer) [facility] Payers Date Payer Category Payer Self-pay [id number] 2023 Private Health Insurance [id number] 2018 Unknown 2018 Unknown [employer] HM O PPO POS xxxxxxxxxxxx 2018-Present xxxxxxxxxxxx [id number] 2015 Private Health Insurance [employer] AET[employer] OPEN ACCESS MANAGED CHOICE [id number] 2015-Present [id number] 2015 Private Health Insurance A[employer] AETNA OPEN ACCESS MANAGED CHOICE [id number] 2015-Present [phone] [address] [place] [address] [id number] 1960 Unknown [id number] 1960 Unknown [id number] Private Health Insurance [id number] Unknown [id number] Unknown [id number] Unknown [id number] Unknown [id number] Unknown [id number] Unknown [id number] Unknown [id number] Social History Date Type Detail Facility [facility] Start: 1960 Sex Assigned At Not on file [facility] Start: 01-10-2019 End: 02-22-2024 Tobacco smoking status NHIS Current every day smoker [facility] History of tobacco use Cigarette Smoker [facility] Start: 07-14-2016 End: 02-23-2019 Cigarettes smoked current (pack per day) - Reported [facility] Start: 02-23-2019 Alcohol Comment [facility] Start: 07-14-2016 End: 09-17-2019 Alcohol intake Current drinker of alcohol (finding) [facility] Start: 02-23-2019 Alcohol intake Yes [facility] Start: 06-14-2022 End: 04-19-2023 Tobacco smoking status IAIS Unknown if ever smoked [facility] Start: 1960 Sex Assigned At Female [facility] Mental Status Date Assessment Result Facility 02-22-2024 Cognitive function Voice/Name [facility] Work Phone: 06-14-2022 Cognitive function Voice/Name [facility] Work Phone: Clinical Notes 03-24-2014 to 02-22-2024 Note Date & Type Note Facility 02-22-2024 Discharge summary Note Date/Time February 22, 2024 9:30am [facility] Medical Records Department [address] [place] [address] Emergency Department Summary 02/22/24 MR#: [id number] Acct: [id number] Name: HAMZAH LEWIS Rep #:[id number] 18 : 1960 63 From: Karina Ruiz MD PCP: FABRIZIO Clarke Status:REG ER Location: ED HPI History of Present Illness Chief Complaint: Chest Pain Informant: patient Onset/Context/Timing Onset: Yesterday Timing: Intermittent Associated Symptoms: Negative for Nausea, Vomiting, Diaphoresis or Dyspnea Narrative Narrative: 63-year-old female presenting with intermittent left arm pain. She states this occasionally goes into her neck. She denies chest pain or shortness of breath. States symptoms usually last approximately 1 minute. She denies association with exertion. Denies nausea, vomiting, diaphoresis. She has history of CABG, hypertension, hyperlipidemia, smoking. She follows with claim auditor, Dr. Vazquez. Last stress test was 2021. She states she does a lot of heavy lifting but does not recall a specific injury. Prior Similar Symptoms: No Recent Illness/Hospitalization: No CVD Risk Factors: Positive for Hypertension, Diabetes, Hypercholesterolemia and Smoking PE Risk Factors: Negative for Recent Travel/Surgery, Recent Immobilization, Prior DVT or PE, Cancer or OCP + Smoking + >/=35 PFSH PFSH Medical History Atherosclerotic heart disease of tribe coronary artery without angina pectoris CAD (coronary artery disease) Chronic cough Dyspnea Essential hypertension History of non-ST elevation myocardial infarction (NSTEMI) Hyperlipidemia Hypersomnia Hypertension Knee pain LBBB (left bundle branch block) Left thyroid nodule Mixed hyperlipidemia Multiple thyroid nodules JAUN (obstructive sleep apnea) JAUN (obstructive sleep apnea) Palpitations PVC (premature ventricular contraction) Right hip pain Right knee pain Right low back pain Shoulder pain Thyromegaly Tobacco abuse Type 2 diabetes mellitus URI, acute Home Medications aspirin 81 mg tablet,delayed release (Adult Low Dose Aspirin) 81 mg PO DAILY 01/25/18 [History Last Taken 02/22/24] atorvastatin 40 mg tablet 40 mg PO QDAY #90 tabs 04/19/23 [Rx Last Taken 02/21/24] carvedilol 6.25 mg tablet 6.25 mg PO BID #180 tabs 04/19/23 [Rx Last Taken 02/22/24] empagliflozin 25 mg tablet (Jardiance) See Rx Instructions .Route .COMPLEX #90 tabs 04/19/23 [Rx Last Taken 02/22/24] losartan 25 mg tablet 25 mg PO BID #180 tabs 04/19/23 [Rx Last Taken 02/22/24] tirzepatide 7.5 mg/0.5 mL subcutaneous pen injector (Mounjaro) 7.5 mg subcut QWEEK 11/16/23 [History Last Taken 02/20/24] Allergy/AdvReac Type Severity Reaction Status Date / Time verapamil [From Isoptin] Allergy Severe confusion Verified 02/22/24 08:53 Family History Mother Degenerative joint disease Hypertension Diabetes Hyperlipidemia Grandfather Myocardial infarction Surgical History H/O hysterectomy with unilateral oophorectomy History of section History of coronary artery bypass graft x 3 (~03/29/14) Social History Smoking Status: Current every day smoker tobacco type: cigarettes Tobacco: How many years used: 10 alcohol intake: current alcohol intake frequency: a few times a week Alcohol type: beer details: 2-3 per week substance use type: does not use caffeine: Yes Type: coffee Number of servings: 4 what type of physical activity do you participate in: none ROS ROS ED Constitutional Constitutional ED: Denies fever(s) Eyes Eyes: Denies change in vision ENT ENT ED: Denies rhinorrhea or sore throat Cardiovascular Cardiovascular: Reports other Details: Left arm pain ; Denies chest pain or palpitations Respiratory/Chest Respiratory/Chest: Reports cough and other Details: Chronic cough ; Denies dyspnea Gastrointestinal Gastrointestinal: Denies abdominal pain, diarrhea, nausea or vomiting Genitourinary Genitourinary ED: Denies dysuria Musculoskeletal Musculoskeletal: Denies myalgias Integumentary Denies rash Neurologic Neurologic: Denies headache(s) Psychiatric Psychiatric: Denies suicidal thoughts EXAM Physical Exam Const Vital Signs: 02/22/24 08:51 02/22/24 09:22 02/22/24 09:51 Temperature 97.8 F Temperature Source Temporal Pulse Rate 103 H 82 Respiratory Rate 16 16 Respiratory Effort Normal Non-Labored Respiratory Pattern Normal Blood Pressure 161/91 H 140/79 H Blood Pressure Mean 114 99 Pulse Ox 100 97 Oxygen Delivery Method Room Air Room Air 02/22/24 10:00 02/22/24 11:00 02/22/24 12:00 Temperature Temperature Source Pulse Rate 70 69 74 Respiratory Rate 18 16 15 Respiratory Effort Respiratory Pattern Blood Pressure 137/75 H 135/75 H 146/75 H Blood Pressure Mean 95 95 98 Pulse Ox 96 97 96 Oxygen Delivery Method Room Air Room Air Room Air 02/22/24 13:00 Temperature Temperature Source Pulse Rate 69 Respiratory Rate 19 H Respiratory Effort Respiratory Pattern Blood Pressure 157/76 H Blood Pressure Mean 103 Pulse Ox 97 Oxygen Delivery Method Room Air Positive well nourished and well developed General Appearance ED: well developed HEENT Reports normocephalic and head/scalp atraumatic Eyes PERRL and EOMs intact bilaterally Neck supple General: Negative for tenderness Chest Wall inspection of chest normal Resp normal respiratory effort and clear to auscultation bilaterally Cardio regular rate and regular rhythm GI non-tender and non-distended Palpation: soft; Negative for guarding or rebound tenderness present no CVA tenderness Extremity normal to inspection Neuro oriented x3 Sensorium / Orientation: alert Psych mental status grossly normal Skin no rashes or lesions noted Heart Score History: Slightly/Non-Suspicious ECG: Nonspecific Repolarization Age: >45 - <65 years Risk Factors: >/= 3 Risk Factors or History of CAD Troponin: </= Normal Limit Score: 4 MDM MDM MDM Narrative Medical decision making narrative: Patient was given aspirin. EKG is sinus rhythm, left bundle branch block, similar to previous. Differential diagnosis includes ACS, musculoskeletal pain,pneumonia, COPD. CBC, chemistries unremarkable other than glucose 172. Troponin negative. Delta troponin negative. Chest x-ray shows no acute process. Patient is resting comfortably on reevaluation. She is pain-free. She is requesting discharge home. Discussed with Dr. León, recommend outpatient follow-up. Patient is agreeable with this plan. Advised return to the ED for any worsening complaints. Lab Data Attestation: I reviewed the patient's lab results. Labs: Laboratory Results - last 24 hr 02/22/24 02/22/24 09:15 11:15 WBC 7.7 RBC 5.05 Hgb 15.9 H Hct 47.1 H MCV 93.3 MCH 31.5 MCHC 33.8 RDW Std Deviation 42.8 RDW Coeff of Nellie 12.5 Plt Count 307 MPV 8.7 Immature Gran % (Auto) 0.400 Neut % (Auto) 65.4 Lymph % (Auto) 24.0 Garvin % (Auto) 6.7 Eos % (Auto) 3.1 Baso % (Auto) 0.4 Absolute Neuts (auto) 5.0 Absolute Lymphs (auto) 1.85 Nucleated RBC % 0 Sodium 139 Potassium 4.1 Chloride 110 H Carbon Dioxide 25.0 Anion Gap 4 L BUN 20 H Creatinine 0.76 Estim Creat Clear Calc 77.06 Est GFR (MDRD) Af Amer 99 Est GFR (MDRD) Non-Af 82 BUN/Creatinine Ratio 26.4 H Glucose 172 H Calcium 9.6 Troponin I High Sens 5 5 Radiography Diagnostic Testing: Clinical Impression(s) from Imaging Studies Chest X-Ray 02/22/24 09:13 IMPRESSION: No acute abnormality is seen. Electronically Signed: Kanu Hahn MD at 9:30 EDT , EKG Initial EKG: Attestation: I personally reviewed and interpreted this EKG as follows: Interpretation: Sinus Rhythm and LBBB Prior: Unchanged Discharge Plan Triage Chief Complaint: Chest Pain ED Provider: Karina Ruiz Dx/Rx/DC Orders Clinical Impression: Arm pain, left Instructions: ED Chest Pain, Uncertain Cause Prescriptions: No Action aspirin [Adult Low Dose Aspirin] 81 mg tablet,delayed release (DR/EC) 81 mg PO DAILY losartan 25 mg tablet 25 mg PO BID Qty: 180 4RF Jardiance 25 mg tablet See Rx Instructions .ROUTE .COMPLEX Qty: 90 1RF Dose Instruction: TAKE 1 TABLET BY MOUTH EVERY DAY IN THE MORNING Rx Instructions: TAKE 1 TABLET BY MOUTH EVERY DAY IN THE MORNING carvedilol 6.25 mg tablet 6.25 mg PO BID Qty: 180 4RF Rx Instructions: must administer with a meal/food atorvastatin 40 mg tablet 40 mg PO QDAY Qty: 90 3RF Rx Instructions: please fill as 90 days if allowed Mounjaro 7.5 mg/0.5 mL pen injector 7.5 mg subcut QWEEK Primary Care Provider: Nish Bahena Referrals: Nish Bahena [facility] [Primary Care Provider] - Disposition Disposition: Home, Self Care What to do if you have Problems For any increased pain, shortness of breath, bleeding, nausea or vomiting, chestpain, or any unexpected problems, contact your Primary Care Provider. Call [facility] ([phone]) or report to the closest Emergency Room. Call 911 if necessary. 02/22/24 1348 <Electronically signed by Karina Ruiz MD> Cosigner Signature (if applicable): CC: FABRIZIO Bahena ~ Signed [facility] Work Phone: [phone] 733-614706-01-2014 Evaluation note* Diagnosis Onset Date Resolution Status Atherosclerotic heart 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 angina pectoris chronic Essential hypertension chron ic History of coronary artery bypass graft x March, chronic LBBB (left bundle branch block) chronic Mixed hyperlipidemia chronic Palpitations chronic PVC (premature ventricular contraction) chronic Tobacco abuse chronic Atherosclerotic heart 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 angina pectoris chronic JAUN (obstructive sleep apnea) chronic Tobacco abuse chronic Type 2 diabetes mellitus chr onic Atherosclerotic heart 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 angina pectoris chronic Essential hypertension chron ic History of coronary artery bypass graft x March, chronic LBBB (left bundle branch block) chronic Mixed hyperlipidemia chronic Palpitations chronic PVC (premature ventricular contraction) chronic Tobacco abuse chronic COVID noneactive Left thyroid nodule acute Essential hypertension chron ic JAUN (obstructive sleep apnea) chronic Type 2 diabetes mellitus chr onic Multiple thyroid nodules acu te Thyromegaly acute [facility] Work Phone: [phone]) 428-254206-01-2014 Evaluation note* Diagnosis Onset Date Resolution Status CAD (coronary artery disease) chronic Dyslipidemia chronic Essential hypertension chron ic History of coronary artery bypass graft x March, chronic Nicotine dependence chronic JAUN (obstructive sleep apnea) chronic [facility] [phone]) 747-662006-01-2014 Evaluation note* Diagnosis Onset Date Resolution Status Admit Date Dyslipidemia chronic June 14, 2025 3:22pm Essential hypertension chronic [place] 2024 3:22pm History of coronary artery bypass graft x March, chronic June 14 3:22pm Nicotine dependence chronic Augus t 2024 3:22pm JAUN (obstructive sleep apnea) chroni c June 14, 2025 3:22pm Type 2 diabetes mellitus chronic June 14, 2025 3:22pm [facility] Work Phone: Evaluation noteNo assessment information available [facility] Work Phone: Evaluation note* Diagnosis Onset Date Resolution Status Dyspnea acute Hypersomnia acute Type 2 diabetes mellitus chr onic Atherosclerotic heart 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 angina pectoris acute Essential hypertension acute History of coronary artery bypass graft x March, acute LBBB (left bundle branch block) acute Mixed hyperlipidemia acute Palpitations acute PVC (premature ventricular contraction) acute Tobacco abuse acute [facility] Work Phone: Evaluation note* Diagnosis Onset Date Resolution Status Dyspnea acute Hypersomnia acute Type 2 diabetes mellitus chr on Atherosclerotic heart 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 angina pectoris acute Essential hypertension acute History of coronary artery bypass graft x March, acute LBBB (left bundle branch block) acute Mixed hyperlipidemia acute Palpitations acute PVC (premature ventricular contraction) acute Tobacco abuse acute Atherosclerotic heart 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 angina pectoris acute JAUN (obstructive sleep apnea) acute Tobacco abuse acute Type 2 diabetes mellitus [facility] Work Phone: Evaluation note* Diagnosis Onset Date Resolution Status Dyspnea acute Hypersomnia acute Type 2 diabetes mellitus chr [facility] Atherosclerotic heart 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 angina pectoris chronic Essential hypertension chron ic History of coronary artery bypass graft x March, chronic LBBB (left bundle branch block) chronic Mixed hyperlipidemia chronic Palpitations chronic PVC (premature ventricular contraction) chronic Tobacco abuse chronic JAUN (obstructive sleep apnea) acute Atherosclerotic heart 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 angina pectoris chronic Tobacco abuse chronic Type 2 diabetes mellitus chr [facility] Atherosclerotic heart 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 angina pectoris chronic Essential hypertension chron ic History of coronary artery bypass graft x March, chronic LBBB (left bundle branch block) chronic Mixed hyperlipidemia chronic Palpitations chronic PVC (premature ventricular contraction) chronic Tobacco abuse chronic COVID noneactive [facility] Work Phone: Evaluation note* Diagnosis Onset Date Resolution Status Dyspnea acute Hypersomnia acute Type 2 diabetes mellitus chr [facility] Atherosclerotic heart 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 angina pectoris chronic Essential hypertension chron ic History of coronary artery bypass graft x March, chronic LBBB (left bundle branch block) chronic Mixed hyperlipidemia chronic Palpitations chronic PVC (premature ventricular contraction) chronic Tobacco abuse chronic Atherosclerotic heart 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 angina pectoris chronic JAUN (obstructive sleep apnea) chronic Tobacco abuse chronic Type 2 diabetes mellitus chr [facility] Atherosclerotic heart 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 angina pectoris chronic Essential hypertension chron ic History of coronary artery bypass graft x March, chronic LBBB (left bundle branch block) chronic Mixed hyperlipidemia chronic Palpitations chronic PVC (premature ventricular contraction) chronic Tobacco abuse chronic COVID noneactive Left thyroid nodule acute Essential hypertension chron ic JAUN (obstructive sleep apnea) chronic Type 2 diabetes mellitus [facility] Work Phone: Evaluation note* Diagnosis Onset Date Resolution Status Atherosclerotic heart 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 angina pectoris chronic JAUN (obstructive sleep apnea) chronic Tobacco abuse chronic Type 2 diabetes mellitus chr onic Atherosclerotic heart 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 angina pectoris chronic Essential hypertension chron ic History of coronary artery bypass graft x 3 March, chronic LBBB (left bundle branch block) chronic Mixed hyperlipidemia chronic Palpitations chronic PVC (premature ventricular contraction) chronic Tobacco abuse chronic COVID noneactive Left thyroid nodule acute Essential hypertension chron ic JAUN (obstructive sleep apnea) chronic Type 2 diabetes mellitus chr onic Multiple thyroid nodules acu te Thyromegaly acute Left thyroid nodule acute [facility] Work Phone: Evaluation note* Diagnosis Onset Date Resolution Status Left thyroid nodule acute Essential hypertension chron ic JAUN (obstructive sleep apnea) chronic Type 2 diabetes mellitus chr onic Multiple thyroid nodules acu te Thyromegaly acute Left thyroid nodule acute Multiple thyroid nodules acu te JAUN (obstructive sleep apnea) acute Essential hypertension chron ic Type 2 diabetes mellitus chr onic Right hip pain acute Right low back pain acute [facility] Work Phone: Evaluation note* Diagnosis Onset Date Resolution Status Multiple thyroid nodules acu te JAUN (obstructive sleep apnea) acute Essential hypertension chron ic Type 2 diabetes mellitus chr onic Right hip pain acute Right low back pain acute Atherosclerotic heart 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 angina pectoris chronic Essential hypertension chron ic History of coronary artery bypass graft x 3 March, chronic LBBB (left bundle branch block) chronic Mixed hyperlipidemia chronic Palpitations chronic PVC (premature ventricular contraction) chronic Tobacco abuse chronic Essential hypertension chron ic Type 2 diabetes mellitus chr onic [facility] Work Phone: Hospital Discharge instructions Additional Instructions The exact cause of your pain is not clear based on your work-up today. No signs of kidney infection or hip injury. 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 I suspect nerve from your back is getting irritated and this is causing your pain. If you have new numbness or weakness of the leg please return to the emergency room. You can continue to alternate ibuprofen and Tylenol. You were placed on a short burst of steroids. Please keep an eye on your blood sugars as steroids do cause your blood sugars to go up. Discussed this with your primary care doctor. You been given referral to a pain management doctor as well.[facility] Work Phone: Reason for referral (narrative)No reason for referral information [facility] Work Phone: Summary Purpose Family History No Family History Records Found Relationship Condition Age at Onset Recorded Date/T leyda mother Osteoarthritis Unknown Hypertension Unknown Diabetes mellitus Unknown Hyperlipidemia Unknown grandfather Myocardial infarction Unknown Advance Directives No Advanced Directives Records Found Advance Directive Response Recorded Date/ Time Living Will No June 14 1:31am Power of Rfid Technician No June 14 022 1:31am Advance Directive Response Recorded Date/ Time Living Will No August 05 2:53pm Power of Rfid Technician No August 05, 2022 2:53pm Advance Directive Response Recorded Date/ Time Living Will No August 05 1:53pm Power of Rfid Technician No August 05, 2022 1:53pm Advance Directive Response Recorded Date/ Time Living Will No October 05 022 12:34pm Power of Rfid Technician No October 05, 2022 12:34pm Advance Directive Response Recorded Date/ Time Living Will No January 26, 2023 3:03pm Power of Rfid Technician No January 26 3:03pm Advance Directive Response Recorded Date/ Time Living Will No February 22, 2024 9: 26am Power of Rfid Technician No February 22, 2024 9:26am Advance Directive Response Recorded Date/ Time Living Will No January 26, 2023 2:03pm Power of Rfid Technician No January 26 2:03pm Reason for Referral Status Reason Specialty Diagnoses / Procedures Referred By Contact Referred To Contact New Request Diagnoses Abnormal x-ray Procedures MRI KNEE RIGHT WITHOUT CONTRAST ID MRI LOWER EXTREM JT, W/O CONTRAST Anthony Hoyt MD [address] [place] [id number] Status Reason Specialty Diagnoses / Procedures Referred By Contact Referred To Contact New Request Diagnoses Right knee pain, unspecified chronicity Procedures XR KNEE RIGHT 4+ VIEWS XR KNEE LEFT 4+ VIEWS Anthony Hoyt MD [address] [place] [address] [id number] Status Reason Specialty Diagnoses / Procedures Referred By Contact Referred To Contact Pending Review Diagnoses Right knee pain, unspecified chronicity Procedures XR BONE LENGTH STUDY Anthony Hoyt MD [address] [place], [place] [id number] Status Reason Specialty Diagnoses / Procedures Referred By Contact Referred To Contact New Request Cardiovascular Medicine Diagnoses Pre-operative clearance Anthony Hoyt MD [address] [place] [address] Klaus Christine, [address] [place] [address] Scheduling Instructions . Status Reason Specialty Diagnoses / Procedures Re ferred By Contact Referred To Contact New Request Diagnoses Pre-operative cardiovascular examination Procedures ECG Klaus Christine, [address] [place] [address] Status Reason Specialty Diagnoses / Procedures Referred By Contact Referred To Contact New Request Diagnoses History of total knee arthroplasty, right Procedures XR KNEE RIGHT 3 VIEWS Joan, Guillermo, PROCEDURES RN-APPLICATIONS ENGINEERING MANAGER [address] [place] [address] Status Reason Specialty Diagnoses / Procedures Re ferred By Contact Referred To Contact New Request Diagnoses Pre-operative cardiovascular examination Procedures ECG Klaus Christine, [address] [place], [place] [id number] History of Present Illness * Anthony Hoyt MD - 01/10/2019 2:50 PM EDT Dictation on: 01/10/2019 3:37 PM by: ANTHONY HOYT [[email or web address]] I have reviewed the findings of the clinical field support representative and agree with their assessment. Anthony Hoyt MD Ortho Nurse Patient Intake Room#: 2--c/o of right knee pain. Has had pain on and off for 5 years. The pain is getting worse. She has not had injections or taken medication. She has done PT X 2 several years ago. Date: 01/10/2019 3:14 PM Patient: Hamzah Lewis MR#: [id number] : 1960 Age: 58 y.o. Referring Physician: Self, Self Insurance: Payor: [employer] / Plan: [employer] H[employer] PPO POS / Product Type: *No Product type* / Chief Complaint Patient presents with Right Knee - Pain Visit Vitals Temp 97.8 F (36.6 C) Ht 1.6 m (5' 3) Wt 93 kg (205 lb) BMI 36.31 kg/m Pain Presence of Pain: complains of pain/discomfort (01/10/19 1508) Select Pain Scale: DVPRS (Defense and Veterans Pain Rating Scale) (Adult- Cognitively Intact) (01/10/19 1508) Select Pain Scale: DVPRS (Defense and Veterans Pain Rating Scale) (Adult- Cognitively Intact) (01/10/19 1508) Recent Labs No results found for: CRP No results found for: SEDRATE No results found for: WBC, WBCCOUNT, WBCFETAL, HGB, HCT, PLATELET, MCV History Past Medical History: Diagnosis Date CAD (coronary artery disease) Diabetes mellitus Essential hypertension, benign Hyperlipidemia Past Surgical History: Procedure Laterality Date CABG W/ ARTERY GRAFT OPEN 2011 HYSTERECTOMY TOTAL ABDOMINAL OPEN (FERN) 2003 Family History: Her family history includes Diabetes in her mother; Heart Disease - Other in her sister. Social History: Her reports that she has been smoking cigarettes. She has never used smokeless tobacco. She reports that she drinks alcohol. She reports that she does not use drugs. Additional Social History Y N Notes Do you live alone? [] [x] Who lives with you: boyfriend Do you have children? [x] [] How many: 3 Do you currently work? 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 [x] [] How many do you have to climb to enter your home: 3 What services do you currently receive at home? [] [x] Name: Do you have transportation to go to outpatient therapy if needed? [x] [] What Equipment do you have at home? [x] [] []Walker, [x]Crutches, []Commode Chair, []Shower []Chair, [x]cane, []bracing Are you followed by a claim auditor? [] [x] Name: Are you followed by pain management? [] [x] Name: Are you followed by any other specialists? [] [x] Name: Outpatient Medications Prior to Visit Medication Sig Dispense Refill aspirin EC [address] Take 81 mg by mouth Daily (with dinner). atorvastatin 40 MG Tab tablet Take 40 mg by mouth Daily (with dinner). carveDILOL 3.125 MG Tab tablet Take 3.125 mg by mouth. JANUVIA 100 MG Tab tablet Take 100 mg by mouth daily. 3 lisinopril 2.5 MG Tab tablet Take 2.5 mg by mouth daily. 1 No facility-administered medications prior to visit. Allergies: She has No Known Allergies. Y N Are you allergic to any metals? [] [x] If yes, what metals: nickel? Review of Systems System Y N Symptoms Constitutional [] [x] Weight Loss [] [x] Weight Gain [] [x] Chronic Fever [] [x] Insomnia Eyes [] [x] Resent Vision Change [] [x] Cataracts [] [x] Glaucoma [] [x] Any Hx of Metal Fragments in the Eye ENT [] [x] Loss of hearing [] [x] Hearing Aids [] [x] Seasonal Allergies [] [x] Dental Issues Cardiovascular [] [x] Chest Pain [] [x] Angina [] [x] Stent [x] [] Hypertension [] [x] Heart Murmur [] [x] Irregular Pulse [] [x] Pacemaker [] [x] Palpitations [x] [] High cholesteral Respiratory [] [x] Wheezing [] [x] Shortness of Breath [] [x] Pneumonia [] [x] Bronchitis [] [x] Sleep Apnea [] [x] COPD [] [x] Date/ LOC of last CXR: Gastrointestinal [] [x] Heartburn [] [x] Indigestion [] [x] Constipation [] [x] Ulcer [] [x] GI Stomach Bleed [] [x] Diarrhea [] [x] Colon Cancer [] [x] Acid Reflux [] [x] Blood in Stools Musculoskeletal [x] [] Arthritis [] [x] Muscle Weakness [x] [] Joint Pain [] [x] Back Pain [] [x] Fibromyalgia [] [x] Bone Infection [] [x] Swelling Multiple Joints [] [x] Reflex Sympathetic Dystrophy Skin [] [x] Chronic Rash [] [x] Ulcers [] [x] Eczema [] [x] Psoriasis [] [x] Skin Cancer [] [x] Melanoma Neurologic [] [x] Numbness [] [x] Weakness or loss of sensation in arms or legs [] [x] Leg Pain / Sciatica [] [x] Headaches [] [x] Loss of bowel or bladder control Psychiatric [] [x] Anxiety [x] [] Claustrophobia [] [x] Other Psychiatric Problems Hematologic [] [x] Easy Bruising [] [x] Easy Bleeding [] [x] Blood Transfusion Date: Endocrine [] [x] Hypothyroid [] [x] Hyperthyroid [] [x] Hot Flashes [] [x] Hormone Replacement [] [x] Prednisone Use Does pt have dentures? no Procedures * Colleen Rao LPN - 01/10/2019 2:50 PM EDT Ortho Nurse Patient Intake Room#: 2--c/o of right knee pain. Has had pain on and off for 5 years. The pain is getting worse. She has not had injections or taken medication. She has done PT X 2 several years ago. Date: 01/10/2019 3:14 PM Patient: Hamzah Lewis MR#: [id number] : 1960 Age: 58 y.o. Referring Physician: Self, Self Insurance: Payor: [facility] / Plan: [facility] PPO POS / Product Type: *No Product type* / Chief Complaint Patient presents with Right Knee - Pain Visit Vitals Temp 97.8 F (36.6 C) Ht 1.6 m (5' 3) Wt 93 kg (205 lb) BMI 36.31 kg/m Pain Presence of Pain: complains of pain/discomfort (01/10/19 1508) Select Pain Scale: DVPRS (Defense and Veterans Pain Rating Scale) (Adult- Cognitively Intact) (01/10/19 1508) Select Pain Scale: DVPRS (Defense and Veterans Pain Rating Scale) (Adult- Cognitively Intact) (01/10/19 1508) Recent Labs No results found for: CRP No results found for: SEDRATE No results found for: WBC, WBCCOUNT, WBCFETAL, HGB, HCT, PLATELET, MCV History Past Medical History: Diagnosis Date CAD (coronary artery disease) Diabetes mellitus Essential hypertension, benign Hyperlipidemia Past Surgical History: Procedure Laterality Date CABG W/ ARTERY GRAFT OPEN 2011 HYSTERECTOMY TOTAL ABDOMINAL OPEN (FERN) 2003 Family History: Her family history includes Diabetes in her mother; Heart Disease - Other in her sister. Social History: Her reports that she has been smoking cigarettes. She has never used smokeless tobacco. She reports that she drinks alcohol. She reports that she does not use drugs. Additional Social History Y N Notes Do you live alone? [] [x] Who lives with you: boyfriend Do you have children? [x] [] How many: 3 Do you currently work? 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 [x] [] How many do you have to climb to enter your home: 3 What services do you currently receive at home? [] [x] Name: Do you have transportation to go to outpatient therapy if needed? [x] [] What Equipment do you have at home? [x] [] []Walker, [x]Crutches, []Commode Chair, []Shower []Chair, [x]cane, []bracing Are you followed by a claim auditor? [] [x] Name: Are you followed by pain management? [] [x] Name: Are you followed by any other specialists? [] [x] Name: Outpatient Medications Prior to Visit Medication Sig Dispense Refill aspirin EC [address] Take 81 mg by mouth Daily (with dinner). atorvastatin 40 MG Tab tablet Take 40 mg by mouth Daily (with dinner). carveDILOL 3.125 MG Tab tablet Take 3.125 mg by mouth. JANUVIA 100 MG Tab tablet Take 100 mg by mouth daily. 3 lisinopril 2.5 MG Tab tablet Take 2.5 mg by mouth daily. 1 No facility-administered medications prior to visit. Allergies: She has No Known Allergies. Y N Are you allergic to any metals? [] [x] If yes, what metals: nickel? Review of Systems System Y N Symptoms Constitutional[] [x] Weight Loss [] [x] Weight Gain [] [x] Chronic Fever [] [x] Insomnia Eyes[] [x] Resent Vision Change [] [x] Cataracts [] [x] Glaucoma [] [x] Any Hx of Metal Fragments in the Eye ENT[] [x] Loss of hearing [] [x] Hearing Aids [] [x] Seasonal Allergies [] [x] Dental Issues Cardiovascular [] [x] Chest Pain [] [x] Angina [] [x] Stent [x] [] Hypertension [] [x] Heart Murmur [] [x] Irregular Pulse [] [x] Pacemaker [] [x] Palpitations [x] [] High cholesteral Respiratory[] [x] Wheezing [] [x] Shortness of Breath [] [x] Pneumonia [] [x] Bronchitis [] [x] Sleep Apnea [] [x] COPD [] [x] Date/ LOC of last CXR: Gastrointestinal [] [x] Heartburn [] [x] Indigestion [] [x] Constipation [] [x] Ulcer [] [x] GI Stomach Bleed [] [x] Diarrhea [] [x] Colon Cancer [] [x] Acid Reflux [] [x] Blood in Stools Musculoskeletal [x] [] Arthritis [] [x] Muscle Weakness [x] [] Joint Pain [] [x] Back Pain [] [x] Fibromyalgia [] [x] Bone Infection [] [x] Swelling Multiple Joints [] [x] Reflex Sympathetic Dystrophy Skin [] [x] Chronic Rash [] [x] Ulcers [] [x] Eczema [] [x] Psoriasis [] [x] Skin Cancer [] [x] Melanoma Neurologic [] [x] Numbness [] [x] Weakness or loss of sensation in arms or legs [] [x] Leg Pain / Sciatica [] [x] Headaches [] [x] Loss of bowel or bladder control Psychiatric [] [x] Anxiety [x] [] Claustrophobia [] [x] Other Psychiatric Problems Hematologic [] [x] Easy Bruising [] [x] Easy Bleeding [] [x] Blood Transfusion Date: Endocrine [] [x] Hypothyroid [] [x] Hyperthyroid [] [x] Hot Flashes [] [x] Hormone Replacement [] [x] Prednisone Use Does pt have dentures? no documented in this encounter* Anthony Hoyt MD - 02/21/2019 3:20 PM EDT Dictation on: 02/21/2019 3:18 PM by: ANTHONY HOYT [[email or web address]] I have reviewed the findings of the clinical field support representative and agree with their assessment. Anthony Hoyt MD Ortho Nurse Established Patient Intake Room#: 2 Go over MRI of right knee Date: 02/21/2019 3:01 PM Patient: Hamzah Lewis MR#: [id number] : 1960 Age: 58 y.o. Referring Physician: Anthony Hoyt MD Insurance: Payor: [employer] / Plan: [employer] PPO POS / Product Type: *No Product type* / Chief Complaint Patient presents with Right Knee - MRI Results, Follow-up Visit Vitals Temp 97.7 F (36.5 C) (Temporal) Ht 1.6 m (5' 3) Wt 93 kg (205 lb) BMI 36.31 kg/m Pain Presence of Pain: complains of pain/discomfort (02/21/19 1500) Pain Location: knee, right (02/21/19 1500) Pain Location: knee, right (02/21/19 1500) Recent Labs No results found for: CRP No results found for: SEDRATE No results found for: WBC, WBCCOUNT, WBCFETAL, HGB, HCT, PLATELET, MCV History Past Medical History: Diagnosis Date CAD (coronary artery disease) Diabetes mellitus Essential hypertension, benign Hyperlipidemia Past Surgical History: Procedure Laterality Date CABG W/ ARTERY GRAFT OPEN 2011 HYSTERECTOMY TOTAL ABDOMINAL OPEN (FERN) 2003 Family History: Her family history includes Diabetes in her mother; Heart Disease - Other in her sister. Social History: Her reports that she has been smoking cigarettes. She has never used smokeless tobacco. She reports that she drinks alcohol. She reports that she does not use drugs. Outpatient Medications Prior to Visit Medication Sig Dispense Refill aspirin EC [address] Take 81 mg by mouth Daily (with dinner). atorvastatin 40 MG Tab tablet Take 40 mg by mouth Daily (with dinner). carveDILOL 3.125 MG Tab tablet Take 3.125 mg by mouth. JANUVIA 100 MG Tab tablet Take 100 mg by mouth daily. 3 lisinopril 2.5 MG Tab tablet Take 2.5 mg by mouth daily. 1 No facility-administered medications prior to visit. Current Outpatient Medications: aspirin EC [address], Take 81 mg by mouth Daily (with dinner)., Disp: , Rfl: atorvastatin 40 MG Tab tablet, Take 40 mg by mouth Daily (with dinner)., Disp: , Rfl: carveDILOL 3.125 MG Tab tablet, Take 3.125 mg by mouth., Disp: , Rfl: JANUVIA 100 MG Tab tablet, Take 100 mg by mouth daily., Disp: , Rfl: 3 lisinopril 2.5 MG Tab tablet, Take 2.5 mg by mouth daily., Disp: , Rfl: 1 Allergies: She has No Known Allergies. Procedures * eRji Valverde LPN - 02/21/2019 3:20 PM EDT Ortho Nurse Established Patient Intake Room#: 2 Go over MRI of right knee Date: 02/21/2019 3:01 PM Patient: Hamzah Lewis MR#: [id number] : 1960 Age: 58 y.o. Referring Physician: Anthony Hoyt MD Insurance: Payor: [employer] / [facility] / Product Type: *No Product type* / Chief Complaint Patient presents with Right Knee - MRI Results, Follow-up Visit Vitals Temp 97.7 F (36.5 C) (Temporal) Ht 1.6 m (5' 3) Wt 93 kg (205 lb) BMI 36.31 kg/m Pain Presence of Pain: complains of pain/discomfort (02/21/19 1500) Pain Location: knee, right (02/21/19 1500) Pain Location: knee, right (02/21/19 1500) Recent Labs No results found for: CRP No results found for: SEDRATE No results found for: WBC, WBCCOUNT, WBCFETAL, HGB, HCT, PLATELET, MCV History Past Medical History: Diagnosis Date CAD (coronary artery disease) Diabetes mellitus Essential hypertension, benign Hyperlipidemia Past Surgical History: Procedure Laterality Date CABG W/ ARTERY GRAFT OPEN 2011 HYSTERECTOMY TOTAL ABDOMINAL OPEN (FERN) 2003 Family History: Her family history includes Diabetes in her mother; Heart Disease - Other in her sister. Social History: Her reports that she has been smoking cigarettes. She has never used smokeless tobacco. She reports that she drinks alcohol. She reports that she does not use drugs. Outpatient Medications Prior to Visit Medication Sig Dispense Refill aspirin EC [address] Take 81 mg by mouth Daily (with dinner). atorvastatin 40 MG Tab tablet Take 40 mg by mouth Daily (with dinner). carveDILOL 3.125 MG Tab tablet Take 3.125 mg by mouth. JANUVIA 100 MG Tab tablet Take 100 mg by mouth daily. 3 lisinopril 2.5 MG Tab tablet Take 2.5 mg by mouth daily. 1 No facility-administered medications prior to visit. Current Outpatient Medications: aspirin EC [address], Take 81 mg by mouth Daily (with dinner)., Disp: , Rfl: atorvastatin 40 MG Tab tablet, Take 40 mg by mouth Daily (with dinner)., Disp: , Rfl: carveDILOL 3.125 MG Tab tablet, Take 3.125 mg by mouth., Disp: , Rfl: JANUVIA 100 MG Tab tablet, Take 100 mg by mouth daily., Disp: , Rfl: 3 lisinopril 2.5 MG Tab tablet, Take 2.5 mg by mouth daily., Disp: , Rfl: 1 Allergies: She has No Known Allergies. documented in this encounter* Joan Ugarte RN - 02/23/2019 2:00 PM EDT Confirmed procedure and surgery date with patient. Discussed post op pain level with patient. Reviewed pre-op instructions and gave written instructions of the same. Labs/ekg obtained today per pat orders from Dr Hoyt * Joan Ugarte RN - 02/23/2019 2:00 PM EDT F PATIENT HAS NOT BEEN DIAGNOSED WITH SLEEP APNEA PLEASE COMPLETE STOP-BANG STOP Do you SNORE loudly (louder than talking or loud enough to be heard through closed doors)? NO Do you often feel TIRED, fatigued, or sleepy during daytime? NO Has anyone OBSERVED you stop breathing during your sleep? NO Do you have or are you being treated for high blood PRESSURE? YES BANG BMI more than 35kg/m2? YES AGE over 50 years old? YES NECK circumference > 16 inches (40 cm)? YES GENDER: Male? NO TOTAL SCORE 4 PT ACCEPTED REFERRAL DECLINED REFERRAL High risk of JAUN: Yes 5-8 Intermediate risk of JAUN: Yes 3-4 Low risk of JAUN: Yes 0-2 * See DEPARTMENT OF SURGERY AND ANESTHESIA REFERRAL FOR SLEEP STUDY AND/OR PULMONARY CONSULT paper form signed by patient in chart. documented in this encounter* Guillermo Franco APRN-CNP - 09/17/2019 9:18 AM EST THIS PATIENT HAS HAD ORTHOPEDIC SURGERY AND IS EXPECTED TO HAVE PAIN REQUIRING NARCOTICS FOR >7 DAYS AND MAY NEED UP TO 8 tabs of norco PER DAY AND THEREFORE 20 tabs ARE BEING DISPENSED IN ACCORDANCE WITH POC DISCUSSED WITH DR HOYT. documented in this encounter* Guillermo Franco APRN-CNP - 10/10/2019 2:20 PM EST SUBJECTIVE: Luz is an established patient of [facility]. She is here today for followup, 3 weeks out from right knee loose body removal. She reports overall she could not be happier with the outcomes of the operation. She went back to work about 72 hours postop. She has had no problems with the wound. No fevers or chills. No changes constitutionally. Has excellent motion of the knee and could not be happier with the outcomes of the operation. PHYSICAL EXAMINATION: GENERAL: She is alert, oriented, age-appropriate female, in no acute distress, pleasant, and cooperative. EXTREMITIES: Right lower extremity, thigh and calf are soft and nontender. Normal neurovascular status. Negative Homans sign. Well-healed anteromedial-based incision without redness, drainage, dehiscence, discharge, signs or symptoms of infection. There is skin glue present on the incision. Knee is warm, minimal swelling, minimal warmth consistent with postoperative nature of it. DIAGNOSTIC STUDY AND INTERPRETATION: Three views of the right knee demonstrate interval removal of the loose body present on the medial side of the femoral condyle. There is minimal joint space narrowing, mild subchondral sclerosis, and relative preservation of the joint spaces in all 3 compartments of the knee. Minimal osteophyte formation. ASSESSMENT: Three weeks status post right knee loose body removal. PLAN: I reviewed my findings with Luz. Overall, I cannot be happy with the outcomes of the operation. I expect continued improvement in pain and strength moving forward, given the removal of this loose body. All of her questions and concerns were addressed today to her satisfaction. She will follow up at her routinely scheduled 4-month followup with Dr. Hoyt. As always, should she need anything in the meantime, I am happy to see her sooner. ([id number]) I have reviewed the findings of the clinical field support representative and agree with their assessment. ISABELLE Slameron Ortho Nurse Established Patient Intake Room#: 5 Date: 10/10/2019 2:22 PM Patient: Hamzah Lewis MR#: [id number] : 1960 Age: 58 y.o. Patient is here for her 3 week f/u of right arthrotomy. Patient states she is doing well. Pain scale is 1/10. Patient states that there was no drainage from her incision. Referring Physician: Guillermo Franco APRN-CNP Insurance: Payor: [employer]TH / Plan: [employer] O PPO POS / Product Type: *No Product type* / Chief Complaint Patient presents with Right Knee - Post Op Visit Visit Vitals Temp 98.2 F (36.8 C) (Temporal) Ht 1.6 m (5' 3) Wt 87.1 kg (192 lb) BMI 34.01 kg/m Pain Recent Labs No results found for: CRP No results found for: SEDRATE Lab Results Component Value Date WBC 7.0 09/10/2019 HGB 15.7 09/10/2019 HCT 46.4 09/10/2019 PLATELET 242 09/10/2019 MCV 94.6 09/10/2019 History Past Medical History: Diagnosis Date Encounter for pre-operative cardiovascular clearance 02/2003 [facility] Anesthesia complication PONV At risk for obstructive sleep apnea CAD (coronary artery disease) Dental disease Diabetes mellitus Essential hypertension, benign Exercise tolerance finding METS > 4 History of methicillin resistant staphylococcus aureus (MRSA) UPPER BACK ABOUT 10 YEARS AGO Hyperlipidemia NC (myocardial infarction) 2012 TRIPLE BYPASS No advance directives Obesity (BMI 35.0-39.9 without comorbidity) Pain AVERAGE PAIN TO RIGHT KNEE GOES FROM 0 TO 6 Pre-operative clearance 02/28/2019 PRATIBHA LINDSEY Wears contact lenses Past Surgical History: Procedure Laterality Date ARTHROTOMY KNEE Right 09/17/2019 Laterality: Right; Surgeon: Anthony Hoyt MD; Location: [facility] OR CABG W/ ARTERY GRAFT OPEN 2011 HYSTERECTOMY TOTAL ABDOMINAL OPEN (FERN) 2004 SECTION x 3 Family History: Her family history includes Diabetes in her mother; Heart Disease - Other in her sister. Social History: Her reports that she has been smoking cigarettes. She has been smoking about 1.00 pack per day. She has never used smokeless tobacco. She reports current alcohol use. She reports thatshe does not use drugs. Outpatient Medications Prior to Visit Medication Sig Dispense Refill aspirin EC [address] Take 81 mg by mouth Daily (with dinner). aspirin EC [address] Take 1 table twice a day for 14 days. This medication is for blood clot prevention. Then resume daily dose. 28 tablet 0 atorvastatin 40 MG Tab tablet Take 40 mg by mouth Daily (with dinner). carveDILOL 3.125 MG Tab tablet Take 3.125 mg by mouth. chlorhexidine 4 % Liquid Entire body(Exclude face) daily x 5 days 1 Bottle 0 docusate 100 MG Cap capsule Take 1 capsule by mouth 2 times daily. 60 capsule 0 JANUVIA 100 MG Tab tablet Take 100 mg by mouth daily. 3 lisinopril 2.5 MG Tab tablet Take 2.5 mg by mouth daily. 1 metformin 500 MG Tab tablet Take 500 mg by mouth 2 times daily with meals. mupirocin 2 % Ointment ointment Each nostril BID x 5 days 1 Tube 0 therapeutic multivitamin-minerals Tab Take 1 tablet by mouth at bedtime. 30 tablet 0 acetaminophen 325 MG tablet Take 2 tablets by mouth every 4 hours as needed for Mild Pain. (Patientnot taking: Reported on 10/10/2019) 50 tablet 1 celecoxib 200 MG Cap capsule Take 1 capsule by mouth 2 times daily for 14 days. 28 capsule 0 hydroCODone-acetaminophen 5-325 MG Tab tablet Take 1-2 tablets by mouth every 6 hours as needed forup to 7 days. Do not take over 4000mg acetaminophen daily. 20 tablet 0 No facility-administered medications prior to visit. Current Outpatient Medications: aspirin EC [address], Take 81 mg by mouth Daily (with dinner)., Disp: , Rfl: aspirin EC [address], Take 1 table twice a day for 14 days. This medication is for blood clot prevention. Then resume daily dose., Disp: 28 tablet, Rfl: 0 atorvastatin 40 MG Tab tablet, Take 40 mg by mouth Daily (with dinner)., Disp: , Rfl: carveDILOL 3.125 MG Tab tablet, Take 3.125 mg by mouth., Disp: , Rfl: chlorhexidine 4 % Liquid, Entire body(Exclude face) daily x 5 days, Disp: 1 Bottle, Rfl: 0 docusate 100 MG Cap capsule, Take 1 capsule by mouth 2 times daily., Disp: 60 capsule, Rfl: 0 JANUVIA 100 MG Tab tablet, Take 100 mg by mouth daily., Disp: , Rfl: 3 lisinopril 2.5 MG Tab tablet, Take 2.5 mg by mouth daily., Disp: , Rfl: 1 metformin 500 MG Tab tablet, Take 500 mg by mouth 2 times daily with meals., Disp: , Rfl: mupirocin 2 % Ointment ointment, Each nostril BID x 5 days, Disp: 1 Tube, Rfl: 0 therapeutic multivitamin-minerals Tab, Take 1 tablet by mouth at bedtime., Disp: 30 tablet, Rfl: 0 acetaminophen 325 MG tablet, Take 2 tablets by mouth every 4 hours as needed for Mild Pain. (Patient not taking: Reported on 10/10/2019), Disp: 50 tablet, Rfl: 1 celecoxib 200 MG Cap capsule, Take 1 capsule by mouth 2 times daily for 14 days., Disp: 28 capsule,Rfl: 0 hydroCODone-acetaminophen 5-325 MG Tab tablet, Take 1-2 tablets by mouth every 6 hours as needed for up to 7 days. Do not take over 4000mg acetaminophen daily., Disp: 20 tablet, Rfl: 0 Allergies: She has No Known Allergies. * Edie Mcpherson - 10/10/2019 2:20 PM EST Ortho Nurse Established Patient Intake Room#: 5 Date: 10/10/2019 2:22 PM Patient: Hamzah Lewis MR#: [id number] : 1960 Age: 58 y.o. Patient is here for her 3 week f/u of right arthrotomy. Patient states she is doing well. Pain scale is 1/10. Patient states that there was no drainage from her incision. Referring Physician: Guillermo Franco APRN-CNP Insurance: Payor: [facility] / Plan: [employer] PPO POS / Product Type: *No Product type* / Chief Complaint Patient presents with Right Knee - Post Op Visit Visit Vitals Temp 98.2 F (36.8 C) (Temporal) Ht 1.6 m (5' 3) Wt 87.1 kg (192 lb) BMI 34.01 kg/m Pain Recent Labs No results found for: CRP No results found for: SEDRATE Lab Results Component Value Date WBC 7.0 09/10/2019 HGB 15.7 09/10/2019 HCT 46.4 09/10/2019 PLATELET 242 09/10/2019 MCV 94.6 09/10/2019 History Past Medical History: Diagnosis Date Encounter for pre-operative cardiovascular clearance 02/2003 GEOVANY Anesthesia complication PONV At risk for obstructive sleep apnea CAD (coronary artery disease) Dental disease Diabetes mellitus Essential hypertension, benign Exercise tolerance finding METS > 4 History of methicillin resistant staphylococcus aureus (MRSA) UPPER BACK ABOUT 10 YEARS AGO Hyperlipidemia NC (myocardial infarction) 2012 TRIPLE BYPASS No advance directives Obesity (BMI 35.0-39.9 without comorbidity) Pain AVERAGE PAIN TO RIGHT KNEE GOES FROM 0 TO 6 Pre-operative clearance 02/28/2019 DESMOND LOCKEGLORIAPRATIBHA SOLORZANO Wears contact lenses Past Surgical History: Procedure Laterality Date ARTHROTOMY KNEE Right 09/17/2019 Laterality: Right; Surgeon: Anthony Hoyt MD; Location: [facility] CABG W/ ARTERY GRAFT OPEN 2011 HYSTERECTOMY TOTAL ABDOMINAL OPEN (FERN) 2004 SECTION x 3 Family History: Her family history includes Diabetes in her mother; Heart Disease - Other in her sister. Social History: Her reports that she has been smoking cigarettes. She has been smoking about 1.00 pack per day. She has never used smokeless tobacco. She reports current alcohol use. She reports thatshe does not use drugs. Outpatient Medications Prior to Visit Medication Sig Dispense Refill aspirin EC [address] Take 81 mg by mouth Daily (with dinner). aspirin EC [address] Take 1 table twice a day for 14 days. This medication is for blood clot prevention. Then resume daily dose. 28 tablet 0 atorvastatin 40 MG Tab tablet Take 40 mg by mouth Daily (with dinner). carveDILOL 3.125 MG Tab tablet Take 3.125 mg by mouth. chlorhexidine 4 % Liquid Entire body(Exclude face) daily x 5 days 1 Bottle 0 docusate 100 MG Cap capsule Take 1 capsule by mouth 2 times daily. 60 capsule 0 JANUVIA 100 MG Tab tablet Take 100 mg by mouth daily. 3 lisinopril 2.5 MG Tab tablet Take 2.5 mg by mouth daily. 1 metformin 500 MG Tab tablet Take 500 mg by mouth 2 times daily with meals. mupirocin 2 % Ointment ointment Each nostril BID x 5 days 1 Tube 0 therapeutic multivitamin-minerals Tab Take 1 tablet by mouth at bedtime. 30 tablet 0 acetaminophen 325 MG tablet Take 2 tablets by mouth every 4 hours as needed for Mild Pain. (Patientnot taking: Reported on 10/10/2019) 50 tablet 1 celecoxib 200 MG Cap capsule Take 1 capsule by mouth 2 times daily for 14 days. 28 capsule 0 hydroCODone-acetaminophen 5-325 MG Tab tablet Take 1-2 tablets by mouth every 6 hours as needed forup to 7 days. Do not take over 4000mg acetaminophen daily. 20 tablet 0 No facility-administered medications prior to visit. Current Outpatient Medications: aspirin EC [address], Take 81 mg by mouth Daily (with dinner)., Disp: , Rfl: aspirin EC [address], Take 1 table twice a day for 14 days. This medication is for blood clot prevention. Then resume daily dose., Disp: 28 tablet, Rfl: 0 atorvastatin 40 MG Tab tablet, Take 40 mg by mouth Daily (with dinner)., Disp: , Rfl: carveDILOL 3.125 MG Tab tablet, Take 3.125 mg by mouth., Disp: , Rfl: chlorhexidine 4 % Liquid, Entire body(Exclude face) daily x 5 days, Disp: 1 Bottle, Rfl: 0 docusate 100 MG Cap capsule, Take 1 capsule by mouth 2 times daily., Disp: 60 capsule, Rfl: 0 JANUVIA 100 MG Tab tablet, Take 100 mg by mouth daily., Disp: , Rfl: 3 lisinopril 2.5 MG Tab tablet, Take 2.5 mg by mouth daily., Disp: , Rfl: 1 metformin 500 MG Tab tablet, Take 500 mg by mouth 2 times daily with meals., Disp: , Rfl: mupirocin 2 % Ointment ointment, Each nostril BID x 5 days, Disp: 1 Tube, Rfl: 0 therapeutic multivitamin-minerals Tab, Take 1 tablet by mouth at bedtime., Disp: 30 tablet, Rfl: 0 acetaminophen 325 MG tablet, Take 2 tablets by mouth every 4 hours as needed for Mild Pain. (Patient not taking: Reported on 10/10/2019), Disp: 50 tablet, Rfl: 1 celecoxib 200 MG Cap capsule, Take 1 capsule by mouth 2 times daily for 14 days., Disp: 28 capsule,Rfl: 0 hydroCODone-acetaminophen 5-325 MG Tab tablet, Take 1-2 tablets by mouth every 6 hours as needed for up to 7 days. Do not take over 4000mg acetaminophen daily., Disp: 20 tablet, Rfl: 0 Allergies: She has No Known Allergies. documented in this encounter* Anthony Hoyt MD - 01/09/2020 4:00 PM EDT HPI: Patient is here today for evaluation of her operative knee. She is status post excision loose body with arthrotomy right knee. She is about 4 months out from surgery and reports that she is doing well and is pleased with the outcome of the intervention. PHYSICAL EXAM: The bilateral lower extremities were evaluated. The operative lower extremity is soft, nontender, full and supple motion. No pain, no impingement. No instability. Incision is well healed. She has full return of motion, 0-140 degrees and a stable examination to varus and valgus stresswith normal balance throughout the arc of motion. The contralateral extremity has full motion, normal stability, no tenderness. Both extremities have normal neurovascular status. IMPRESSION: Stable status post excision loose body with arthrotomy, right knee, doing well. PLAN: I am pleased with the outcome of intervention. She has made an excellent recovery. I expect continued improvement in strength and mobility moving forward. I recommend followup at one year for repeat clinical and radiographic examination or sooner if any new symptoms develop. She will call with any questions or concerns in the meantime. MIKEL FREITAS I have reviewed the findings of the clinical field support representative and agree with their assessment. Ortho Nurse Established Patient Intake Room#: 4 month F/U Right knee foreign body removal, doing great denies any pain Date: 01/09/2020 3:59 PM Patient: Hamzah Lewis MR#: [id number] : 1960 Age: 59 y.o. Referring Physician: Anthony Hoyt MD Insurance: Payor: ANTHEM / Plan: ANTHEM HMO PPO POS / Product Type: *No Product type* / Chief Complaint Patient presents with Right Knee - Follow-up Visit Vitals Temp 97.5 F (36.4 C) (Temporal) Ht 1.6 m (5' 3) Wt 87.1 kg (192 lb) BMI 34.01 kg/m Pain Presence of Pain: denies pain/discomfort Recent Labs No results found for: CRP No results found for: SEDRATE Lab Results Component Value Date WBC 7.0 09/10/2019 HGB 15.7 09/10/2019 HCT 46.4 09/10/2019 PLATELET 242 09/10/2019 MCV 94.6 09/10/2019 History Past Medical History: Diagnosis Date Encounter for pre-operative cardiovascular clearance 02/2003 GEOVANY Anesthesia complication PONV At risk for obstructive sleep apnea CAD (coronary artery disease) Dental disease Diabetes mellitus Essential hypertension, benign Exercise tolerance finding METS > 4 History of methicillin resistant staphylococcus aureus (MRSA) UPPER BACK ABOUT 10 YEARS AGO Hyperlipidemia NC (myocardial infarction) 2012 TRIPLE BYPASS No advance directives Obesity (BMI 35.0-39.9 without comorbidity) Pain AVERAGE PAIN TO RIGHT KNEE GOES FROM 0 TO 6 Pre-operative clearance 02/28/2019 DESMOND PRATIBHA IBRAHIM Wears contact lenses Past Surgical History: Procedure Laterality Date ARTHROTOMY KNEE Right 09/17/2019 Laterality: Right; Surgeon: Anthony Hoyt MD; Location: [facility] OR CABG W/ ARTERY GRAFT OPEN 2012 HYSTERECTOMY TOTAL ABDOMINAL OPEN (FERN) 2004 SECTION x 3 Family History: Her family history includes Diabetes in her mother; Heart Disease - Other in her sister. Social History: Her reports that she has been smoking cigarettes. She has been smoking about 1.00 pack per day. She has never used smokeless tobacco. She reports current alcohol use. She reports thatshe does not use drugs. Outpatient Medications Prior to Visit Medication Sig Dispense Refill aspirin EC [address] Take 81 mg by mouth Daily (with dinner). atorvastatin 40 MG Tab tablet Take 40 mg by mouth Daily (with dinner). carveDILOL 3.125 MG Tab tablet Take 3.125 mg by mouth. JANUVIA 100 MG Tab tablet Take 100 mg by mouth daily. 3 lisinopril 2.5 MG Tab tablet Take 2.5 mg by mouth daily. 1 metformin 500 MG Tab tablet Take 500 mg by mouth 2 times daily with meals. acetaminophen 325 MG tablet Take 2 tablets by mouth every 4 hours as needed for Mild Pain. (Patientnot taking: Reported on 10/10/2019) 50 tablet 1 aspirin EC [address] Take 1 table twice a day for 14 days. This medication is for blood clot prevention. Then resume daily dose. (Patient not taking: Reported on 01/09/2020) 28 tablet 0 celecoxib 200 MG Cap capsule Take 1 capsule by mouth 2 times daily for 14 days. 28 capsule 0 chlorhexidine 4 % Liquid Entire body(Exclude face) daily x 5 days (Patient not taking: Reported on 01/09/2020) 1 Bottle 0 docusate 100 MG Cap capsule Take 1 capsule by mouth 2 times daily. (Patient not taking: Reported on01/09/2020) 60 capsule 0 hydroCODone-acetaminophen 5-325 MG Tab tablet Take 1-2 tablets by mouth every 6 hours as needed forup to 7 days. Do not take over 4000mg acetaminophen daily. 20 tablet 0 mupirocin 2 % Ointment ointment Each nostril BID x 5 days (Patient not taking: Reported on 01/09/2020) 1 Tube 0 therapeutic multivitamin-minerals Tab Take 1 tablet by mouth at bedtime. (Patient not taking: Reported on 01/09/2020) 30 tablet 0 No facility-administered medications prior to visit. Current Outpatient Medications: aspirin EC [address], Take 81 mg by mouth Daily (with dinner)., Disp: , Rfl: atorvastatin 40 MG Tab tablet, Take 40 mg by mouth Daily (with dinner)., Disp: , Rfl: carveDILOL 3.125 MG Tab tablet, Take 3.125 mg by mouth., Disp: , Rfl: JANUVIA 100 MG Tab tablet, Take 100 mg by mouth daily., Disp: , Rfl: 3 lisinopril 2.5 MG Tab tablet, Take 2.5 mg by mouth daily., Disp: , Rfl: 1 metformin 500 MG Tab tablet, Take 500 mg by mouth 2 times daily with meals., Disp: , Rfl: acetaminophen 325 MG tablet, Take 2 tablets by mouth every 4 hours as needed for Mild Pain. (Patient not taking: Reported on 10/10/2019), Disp: 50 tablet, Rfl: 1 aspirin EC [address], Take 1 table twice a day for 14 days. This medication is for blood clot prevention. Then resume daily dose. (Patient not taking: Reported on 01/09/2020), Disp: 28 tablet, Rfl:0 celecoxib 200 MG Cap capsule, Take 1 capsule by mouth 2 times daily for 14 days., Disp: 28 capsule,Rfl: 0 chlorhexidine 4 % Liquid, Entire body(Exclude face) daily x 5 days (Patient not taking: Reported on01/09/2020), Disp: 1 Bottle, Rfl: 0 docusate 100 MG Cap capsule, Take 1 capsule by mouth 2 times daily. (Patient not taking: Reported on 01/09/2020), Disp: 60 capsule, Rfl: 0 hydroCODone-acetaminophen 5-325 MG Tab tablet, Take 1-2 tablets by mouth every 6 hours as needed for up to 7 days. Do not take over 4000mg acetaminophen daily., Disp: 20 tablet, Rfl: 0 mupirocin 2 % Ointment ointment, Each nostril BID x 5 days (Patient not taking: Reported on 01/09/2020), Disp: 1 Tube, Rfl: 0 therapeutic multivitamin-minerals Tab, Take 1 tablet by mouth at bedtime. (Patient not taking: Reported on 01/09/2020), Disp: 30 tablet, Rfl: 0 Allergies: She has No Known Allergies. * Reji Valverde LPN - 01/09/2020 4:00 PM EDT Ortho Nurse Established Patient Intake Room#: 4 month F/U Right knee foreign body removal, doing great denies any pain Date: 01/09/2020 3:59 PM Patient: Hamzah Lewis MR#: [id number] : 1960 Age: 59 y.o. Referring Physician: Anthony Hoyt MD Insurance: Payor: GURINDER / Plan: ANTHEM HMO PPO POS / Product Type: *No Product type* / Chief Complaint Patient presents with Right Knee - Follow-up Visit Vitals Temp 97.5 F (36.4 C) (Temporal) Ht 1.6 m (5' 3) Wt 87.1 kg (192 lb) BMI 34.01 kg/m Pain Presence of Pain: denies pain/discomfort Recent Labs No results found for: CRP No results found for: SEDRATE Lab Results Component Value Date WBC 7.0 09/10/2019 HGB 15.7 09/10/2019 HCT 46.4 09/10/2019 PLATELET 242 09/10/2019 MCV 94.6 09/10/2019 History Past Medical History: Diagnosis Date Encounter for pre-operative cardiovascular clearance 02/2003 POLINSKI Anesthesia complication PONV At risk for obstructive sleep apnea CAD (coronary artery disease) Dental disease Diabetes mellitus Essential hypertension, benign Exercise tolerance finding METS > 4 History of methicillin resistant staphylococcus aureus (MRSA) UPPER BACK ABOUT 10 YEARS AGO Hyperlipidemia NC (myocardial infarction) 2012 TRIPLE BYPASS No advance directives Obesity (BMI 35.0-39.9 without comorbidity) Pain AVERAGE PAIN TO RIGHT KNEE GOES FROM 0 TO 6 Pre-operative clearance 02/28/2019 DESMOND LOCKEGLORIAPRATIBHA SOLORZANO Wears contact lenses Past Surgical History: Procedure Laterality Date ARTHROTOMY KNEE Right 09/17/2019 Laterality: Right; Surgeon: Anthony Hoyt MD; Location: [facility] OR CABG W/ ARTERY GRAFT OPEN 2011 HYSTERECTOMY TOTAL ABDOMINAL OPEN (FERN) 2004 SECTION x 3 Family History: Her family history includes Diabetes in her mother; Heart Disease - Other in her sister. Social History: Her reports that she has been smoking cigarettes. She has been smoking about 1.00 pack per day. She has never used smokeless tobacco. She reports current alcohol use. She reports thatshe does not use drugs. Outpatient Medications Prior to Visit Medication Sig Dispense Refill aspirin EC [address] Take 81 mg by mouth Daily (with dinner). atorvastatin 40 MG Tab tablet Take 40 mg by mouth Daily (with dinner). carveDILOL 3.125 MG Tab tablet Take 3.125 mg by mouth. JANUVIA 100 MG Tab tablet Take 100 mg by mouth daily. 3 lisinopril 2.5 MG Tab tablet Take 2.5 mg by mouth daily. 1 metformin 500 MG Tab tablet Take 500 mg by mouth 2 times daily with meals. acetaminophen 325 MG tablet Take 2 tablets by mouth every 4 hours as needed for Mild Pain. (Patientnot taking: Reported on 10/10/2019) 50 tablet 1 aspirin EC [address] Take 1 table twice a day for 14 days. This medication is for blood clot prevention. Then resume daily dose. (Patient not taking: Reported on 01/09/2020) 28 tablet 0 celecoxib 200 MG Cap capsule Take 1 capsule by mouth 2 times daily for 14 days. 28 capsule 0 chlorhexidine 4 % Liquid Entire body(Exclude face) daily x 5 days (Patient not taking: Reported on 01/09/2020) 1 Bottle 0 docusate 100 MG Cap capsule Take 1 capsule by mouth 2 times daily. (Patient not taking: Reported on01/09/2020) 60 capsule 0 hydroCODone-acetaminophen 5-325 MG Tab tablet Take 1-2 tablets by mouth every 6 hours as needed forup to 7 days. Do not take over 4000mg acetaminophen daily. 20 tablet 0 mupirocin 2 % Ointment ointment Each nostril BID x 5 days (Patient not taking: Reported on 01/09/2020) 1 Tube 0 therapeutic multivitamin-minerals Tab Take 1 tablet by mouth at bedtime. (Patient not taking: Reported on 01/09/2020) 30 tablet 0 No facility-administered medications prior to visit. Current Outpatient Medications: aspirin EC [address], Take 81 mg by mouth Daily (with dinner)., Disp: , Rfl: atorvastatin 40 MG Tab tablet, Take 40 mg by mouth Daily (with dinner)., Disp: , Rfl: carveDILOL 3.125 MG Tab tablet, Take 3.125 mg by mouth., Disp: , Rfl: JANUVIA 100 MG Tab tablet, Take 100 mg by mouth daily., Disp: , Rfl: 3 lisinopril 2.5 MG Tab tablet, Take 2.5 mg by mouth daily., Disp: , Rfl: 1 metformin 500 MG Tab tablet, Take 500 mg by mouth 2 times daily with meals., Disp: , Rfl: acetaminophen 325 MG tablet, Take 2 tablets by mouth every 4 hours as needed for Mild Pain. (Patient not taking: Reported on 10/10/2019), Disp: 50 tablet, Rfl: 1 aspirin EC [address], Take 1 table twice a day for 14 days. This medication is for blood clot prevention. Then resume daily dose. (Patient not taking: Reported on 01/09/2020), Disp: 28 tablet, Rfl:0 celecoxib 200 MG Cap capsule, Take 1 capsule by mouth 2 times daily for 14 days., Disp: 28 capsule,Rfl: 0 chlorhexidine 4 % Liquid, Entire body(Exclude face) daily x 5 days (Patient not taking: Reported on01/09/2020), Disp: 1 Bottle, Rfl: 0 docusate 100 MG Cap capsule, Take 1 capsule by mouth 2 times daily. (Patient not taking: Reported on 01/09/2020), Disp: 60 capsule, Rfl: 0 hydroCODone-acetaminophen 5-325 MG Tab tablet, Take 1-2 tablets by mouth every 6 hours as needed for up to 7 days. Do not take over 4000mg acetaminophen daily., Disp: 20 tablet, Rfl: 0 mupirocin 2 % Ointment ointment, Each nostril BID x 5 days (Patient not taking: Reported on 01/09/2020), Disp: 1 Tube, Rfl: 0 therapeutic multivitamin-minerals Tab, Take 1 tablet by mouth at bedtime. (Patient not taking: Reported on 01/09/2020), Disp: 30 tablet, Rfl: 0 Allergies: She has No Known Allergies. documented in this encounter* Klaus Christine, DO - 09/05/2019 1:30 PM EST Pertinent cardiac diagnoses CABG times Left bundle branch block Type 2 diabetes Hyperlipidemia mixed Hypertension Smoking Family history History of Present Illness 58 y.o. female seen today for preoperative risk stratification. Seen 02/2019 for preop evaluation for exploratory knee surgery but this was canceled due to some laboratory issues. Known left bundle branch block. Prior to her bypass surgery she did have exertional chest tigh tness/pressure. Mildly active physically with housework and yardwork. No unusual shortness of breath or chest discomfort. No PND orthopnea lower extremity edema. No palpitations near-syncope or single episodes. She continues to smoke a half pack a day. No Known Allergies Outpatient Medications Prior to Visit Medication Sig Dispense Refill aspirin EC [address] Take 81 mg by mouth Daily (with dinner). atorvastatin 40 MG Tab tablet Take 40 mg by mouth Daily (with dinner). carveDILOL 3.125 MG Tab tablet Take 3.125 mg by mouth. JANUVIA 100 MG Tab tablet Take 100 mg by mouth daily. 3 lisinopril 2.5 MG Tab tablet Take 2.5 mg by mouth daily. 1 metformin 500 MG Tab tablet Take 500 mg by mouth 2 times daily with meals. chlorhexidine 4 % Liquid Entire body(Exclude face) daily x 5 days 1 Bottle 0 mupirocin 2 % Ointment ointment Each nostril BID x 5 days 1 Tube 0 No facility-administered medications prior to visit. Family History Problem Relation Age of Onset Diabetes Mother Heart Disease - Other Sister has a past surgical history that includes cabg w/ artery graft open (2011); hysterectomy total abdominal open (fern) (2003); and section. Social History Socioeconomic History Marital status: Spouse name: Not on file Number of children: Not on file Years of education: Not on file Highest education level: Not on file Occupational History Not on file Social Needs Financial resource strain: Not on file Food insecurity: Worry: Not on file Inability: Not on file Transportation needs: Medical: Not on file Non-medical: Not on file Tobacco Use Smoking status: Current Every Day Smoker Packs/day: 1.00 Types: Cigarettes Smokeless tobacco: Never Used Substance and Sexual Activity Alcohol use: Yes Comment: OCCASIONAL Drug use: Never Sexual activity: Not on file Lifestyle Physical activity: Days per week: Not on file Minutes per session: Not on file Stress: Not on file Relationships Social connections: Talks on phone: Not on file Gets together: Not on file Attends anglican service: Not on file Active member of club or organization: Not on file Attends meetings of clubs or organizations: Not on file Relationship status: Not on file Intimate partner violence: Fear of current or ex partner: Not on file Emotionally abused: Not on file Physically abused: Not on file Forced sexual activity: Not on file Other Topics Concern Not on file Social History Narrative Not on file Review of System 10 systems reviewed, pertinent positives listed above Blood pressure 122/66, pulse 82, resp. rate 16, height 1.6 m (5' 3), weight 87.1 kg (192 lb), [id number] %. Body mass index is 34.01 kg/m . Physical Exam General appearance - alert, well developed, well nourished,58 y.o.female appropriate affect HEENT PERRLA, EOMI, no xanthelasma or icterus Neck - supple, No JVD or bruits. Upstrokes equal bilaterally. No adenopathy or thyromegaly. Lungs - clear to auscultation, no wheezes, rales or rhonchi Heart - regular rate and regular rhythm, normal S1 and S2 without S3, no significant murmur, rub, lift Abdomen - soft, nontender, no organomegaly Extremities -no edema, clubbing or cyanosis, Neurologic: cranial nerves II through XII intact Musculoskeletal - right knee osteoarthritis Skin - normal coloration and turgor, no laxity Psych- appropriate mood Lab Results: Lab Results Component Value Date SODIUM 135 (L) 02/23/2019 POTASSIUM 3.9 02/23/2019 CALCIUM 9.4 02/23/2019 CHLORIDE 100 02/23/2019 TP 6.9 02/23/2019 BUN 19 02/23/2019 CREATSERUM 0.84 02/23/2019 ALBUMIN 3.9 02/23/2019 BILITOTAL 1.2 02/23/2019 AST 23 02/23/2019 ALKPHOS 75 02/23/2019 CO2 24 02/23/2019 AGRATIO 1.3 02/23/2019 ALT 26 02/23/2019 GFR >60 02/23/2019 GFRAA >60 02/23/2019 GFRCOMMENT Average GFR for 50-59 years old = 93. 02/23/2019 GLUCOSE 300 (H) 02/23/2019 No results found for: CHOLESTEROL, TRIG, HDL, LDLCALC, BLDL, TCHHDLMANENT Lab Results Component Value Date PT 12.4 02/23/2019 INR 0.93 02/23/2019 WBC 7.6 02/23/2019 RBC 4.67 02/23/2019 HGB 15.1 02/23/2019 HCT 42.7 02/23/2019 MCV 91.5 02/23/2019 MEANCELHGB 32.3 02/23/2019 MEANCELHGCON 35.3 02/23/2019 RBCDISTRIBU 13.3 02/23/2019 PLATELET 213 02/23/2019 MPV 7.9 02/23/2019 NEUTROPHILS 57.1 02/23/2019 LYMPHOCYTES 30.8 02/23/2019 MONOCYTE 8.2 02/23/2019 EOSINOPHILS 3.0 02/23/2019 EOSINOPHILS 0.20 02/23/2019 BASOPHILS 0.9 02/23/2019 BASOPHILS 0.1 02/23/2019 DIFFTYPE AUTO DIFF 02/23/2019 Problem List Items Addressed This Visit Cardiovascular Essential hypertension Left bundle-branch block Endocrine Type 2 diabetes mellitus without complication, without long-term current use of insulin Relevant Medications metformin 500 MG Tab tablet Hyperlipidemia Relevant Orders LIPID PANEL W CALCULATED LDL Other Smoker Pre-operative cardiovascular examination - Primary Relevant Orders ECG S/P CABG x 3 Assessment & Plan No contraindications to surgery from the cardiac standpoint. Blood pressure well-controlled. Elevated risk due to her cardiovascular comorbidities. Recheck lipids with her preoperative blood work. Understands the risks of continued smoking. No cardiovascular testing required at this time. Klaus Christine DO 09/05/2019 1:42 PM documented in this encounter Assessments Diagnosis Right knee pain, unspecified chronicity- Primary Abnormal x-ray Other nonspecific (abnormal) findings on radiological and other examinations of body structure Diagnosis Pre-operative clearance- Primary Preoperative examination, unspecified Diagnosis Chronic pain of right knee- Primary Diagnosis Pre-operative cardiovascular examination- Primary Hyperlipidemia, unspecified hyperlipidemia type S/P CABG x 3 Postsurgical aortocoronary bypass status Smoker Tobacco use disorder Essential hypertension Unspecified essential hypertension Family history of coronary artery disease Family history of ischemic heart disease Type 2 diabetes mellitus without complication, without long-term current use of insulin Diagnosis Preop testing- Primary Preoperative examination, unspecified Diagnosis Arthralgia, unspecified joint- Primary Diagnosis Acute postoperative pain of left knee- Primary Preop testing Preoperative examination, unspecified Loose body of right knee Loose body in knee Diagnosis History of total knee arthroplasty, right- Primary Diagnosis History of total knee arthroplasty, right Diagnosis Pre-operative cardiovascular examination- Primary Mixed hyperlipidemia S/P CABG x 3 Postsurgical aortocoronary bypass status Left bundle-branch block Other left bundle branch block Type 2 diabetes mellitus without complication, without long-term current use of insulin Smoker Tobacco use disorder Essential hypertension Unspecified essential hypertension Instructions * Patient Instructions* Paige Woods RN - 02/23/2019 2:00 PM EDT Your surgery is scheduled for 03/05/2019 PATIENT SURGERY INFORMATION Please call the white lead grinder the day before surgery, or Tuesday if your surgery is scheduled on Tuesday, to receive your arrival time for the day of surgery. The number is [phone]. Please call between 9am to 2pm. If she hasn't heard from you she will call you after 2pm. If you have any questions concerning your surgery/procedure, please call the P.A.T. Coordinator, Tuesday through Tuesday, 8:00 am to 4:30 pm at [phone]. For surgical questions during evenings or weekends, please call [phone] and ask the chief lock operator to page the Nursing Leak Patcher. Discontinue any blood thinners such as Aspirin, Plavix, Coumadin, Eliquis 7 days before surgery or as instructed by your physician. Stop any NSAIDs (Ibuprofen, Motrin, Aleve, Advil, etc.), fish oil, and other supplements 7 days before your surgery or as instructed by your physician. Tylenol or acetaminophen is ok to take within this time frame. Please take the following medications with a sip of water the morning of surgery: Refer to your medication list Check your blood sugar the morning of surgery if taking diabetic medication THINGS TO BRING WITH YOU THE MORNING OF SURGERY: If Applicable Crutches CPAP. Please bring tubing and mask. Rescue Inhaler Careful attention to the following instructions will help ensure your comfort and reduce the possibility of complications. * Instructions for the day of your surgery/procedure * 1. Do not eat or drink anything after midnight (this includes gum, mints, lozenges, chewing tobaccoand sips of water) before your surgery/procedure. Doing so may cause nausea or vomiting during the procedure, which may cause serious or fatal complications. 2. You may brush your teeth before coming to the hospital. Try not to swallow any water when brushing your teeth. 3. Bathe or shower the evening before or the day of your surgery/procedure UNLESS otherwise instructed by your physician. 4. Avoid using make-up (cosmetics), aerosol sprays, perfumes, skin creams or lotions. Any make-up, nail burundian and lipstick will need to be removed before surgery. Hospital staff needs to see your natural coloring to assess and monitor any changes. 5. Wear clothing that is comfortable and easy to put on after surgery. 6. Bring a responsible adult with you. YOU ARE NOT PERMITTED TO DRIVE HOME FOLLOWING YOUR SURGERY/PROCEDURE. 7. Leave all valuables and large amounts of money at home. Do not wear any jewelry including fingerrings, navel rings, earrings, toe rings, tongue rings or any type of body piercing jewelry. For your safety, you must remove all jewelry items prior to your procedure. 8. Dentures, hearing aids, contact lenses and glasses cannot be worn during your procedure. If you use any of these items, please bring their cases with you for proper storage. [facility] will not be responsible for lost articles. 9. You will consult with anesthesia personnel the day of surgery. Anesthesia personnel will ask youimportant questions and explain the type of anesthesia you will be receiving, how it is administered, and the risks. You will have an opportunity to have all of your questions answered. 10. Two visitors may stay with you before and after surgery. For patient confidentiality and comfort, please limit your visitors to two (2) adults. We welcome and encourage parents of pediatric patients to remain here throughout the procedure. No small children will be permitted in the pre-operative or recovery area. 11. If you develop a cold, persistent cough, sore throat, fever or any other illness within two days of surgery, please notify your physician or tell the nurse as soon as you arrive at the hospital. If you experience any other health changes between your most recent visit to your surgeon and the day of the surgery, notify your physician. If you suspect you are , please notify your physician. Anesthesia and medications may be harmful to the developing fetus. 12. No alcohol 48 HOURS or illicit drugs 72 HOURS prior to your procedure. 13. Do not smoke after midnight the night before your procedure. If you are a smoker, our Surgery Department requests you quit or cut down at least 24 to 48 hours prior to your surgery/procedure. Youwill not be permitted to smoke at the hospital. 14. Any legal documents should not be signed until 24 hours after sedation. 15. You will receive discharge instructions before leaving the hospital and copies of the information will be placed in a folder for you to take home. It is important for you, and anyone assisting with your care, to understand these instructions. 16. We will call you after your procedure to see how you are doing. Please call your doctor with any questions or concerns. DIRECTIONS: Aby in the front main lot facing [address] Enter through the front entrance and sign in at theRegistration Desk at the front lobby. Thank you for allowing us the privilege to care for you! Current Outpatient Medications Medication INSTRUCTIONS aspirin EC [address] Take 81 mg by mouth Daily (with dinner). ASK YOUR DOCTOR PERMISSION TO STOP THIS MEDICATION. LAST DOSE: DATE TIME atorvastatin 40 MG Tab tablet Take 40 mg by mouth Daily (with dinner). CONTINUE MEDICATION LAST DOSE: DATE TIME carveDILOL 3.125 MG Tab tablet Take 3.125 mg by mouth. CONTINUE MEDICATION LAST DOSE: DATE TIME JANUVIA 100 MG Tab tablet Take 100 mg by mouth daily. CONTINUE MEDICATION LAST DOSE: DATE TIME lisinopril 2.5 MG Tab tablet Take 2.5 mg by mouth daily. CONTINUE MEDICATION LAST DOSE: DATE TIME documented in this encounter Discharge Instructions * Instructions* Geeta Case RN - 09/17/2019 ICE SITE CONTINUOUSLY ACTIVITY TOLERATED RESUME REGULAR DIET DO NOT FLEX HIP MORE THAN 90 DEGREES DO NOT MOVE LEG PAST MIDDLE OF BODY DO NOT ALLOW LEG TO ROLL INWARD Call your doctor now or seek immediate medical care if: You have pain that does not get better when you take your pain medicine. You have signs of infection, such as: Increased pain, swelling, warmth, or redness. Red streaks leading from the incision. Pus draining from the incision. A fever. Bright red blood has soaked through the bandage over your incision. You have loose stitches, or your incision comes open. You have signs of a blood clot in your leg (called a deep vein thrombosis), such as: Pain in your calf, back of knee, thigh, or groin. Redness and swelling in your leg or groin. Watch closely for any changes in your health, and be sure to contact your doctor if you have any problems. Anesthesia: General Anesthesia You are watched continuously during your procedure by your anesthesia provider. You re due to have surgery. During surgery, you ll be given medicine called anesthesia or anesthetic. This will keep you comfortable and pain-free. Your anesthesia provider will use general anesthesia. What is general anesthesia? General anesthesia puts you into a state like deep sleep. It goes into the bloodstream (IV anesthetics), into the lungs (gas anesthetics), or both. You feel nothing during the procedure. You will notremember it. During the procedure, the anesthesia provider monitors you continuously. He or she checks your heart rate and rhythm, blood pressure, breathing, and blood oxygen. IV anesthetics. IV anesthetics are given through an IV line in your arm. They re often given first.This is so you are asleep before a gas anesthetic is started. Some kinds of IV anesthetics relieve pain. Others relax you. Your doctor will decide which kind is best in your case. Gas anesthetics. Gas anesthetics are breathed into the lungs. They are often used to keep you asleep. They can be given through a facemask or a tube placed in your larynx or trachea (breathing tube). ? If you have a facemask, your anesthesia provider will most likely place it over your nose and mouth while you re still awake. You ll breathe oxygen through the mask as your IV anesthetic is started. Gas anesthetic may be added through the mask. ? If you have a tube in the larynx or trachea, it will be inserted into your throat after you re asleep. Anesthesia tools and medicines You will likely have: IV anesthetics. These are put into an IV line into your bloodstream. Gas anesthetics. You breathe these anesthetics into your lungs, where they pass into your bloodstream. Pulse oximeter. This is a small clip that is attached to the end of your finger. This measures yourblood oxygen level. Electrocardiography leads (electrodes). These are small sticky pads that are placed on your chest. They record your heart rate and rhythm. Blood pressure cuff. This reads your blood pressure. Risks and possible complications General anesthesia has some risks. These include: Breathing problems Nausea and vomiting Sore throat or hoarseness (usually temporary) Allergic reaction to the anesthetic Irregular heartbeat (rare) Cardiac arrest (rare) Anesthesia safety Follow all instructions you are given for how long not to eat or drink before your procedure. Be sure your doctor knows what medicines and drugs you take. This includes [id number] medicines, herbs, supplements, alcohol or other drugs. You will be asked when those were last taken. Have an adult family member or friend drive you home after the procedure. For the first 24 hours after your surgery: ? Do not drive or use heavy equipment. ? Do not make important decisions or sign legal documents. If important decisions or signing legal documents is necessary during the first 24 hours after surgery, have a trusted family member or spouse act on your behalf. ? Avoid alcohol. ? Have a responsible adult stay with you. He or she can watch for problems and help keep you safe. Call for temp >101.5, wound drainage or issues, keep incision clean and dry, ok to shower starting 1 day postop. Rinse incision and pat dry. Do not rub. Keep ABD dressing in place with lam hose. No tape to incision. Wash hands before changing dressing. Follow up in office 10/10/19 @ 220pm. Please arrrive at 205 pm. documented in this encounter Chief Complaint and Reason for Visit Chief Complaint CP Chief Complaint CP ER FU - PRATIBHA Amb Documentation CP/PALPITATIONS/REF. BAHENA HYPERSOMNIA Reason for Visit Dyspnea Hypersomnia Type 2 diabetes mellitus Atherosclerotic heart disease of tribe coronary artery without angina pectoris Essential hypertension History of coronary artery bypass graft x 3 LBBB (left bundle branch block) Mixed hyperlipidemia Palpitations PVC (premature ventricular contraction) Tobacco abuse Chief Complaint CP ER FU - PRATIBHA Amb Documentation CP/PALPITATIONS/REF. BAHENA HYPERSOMNIA VENTRICULAR PREMATURE DEPOLARIZATION Reason for Visit Dyspnea Hypersomnia Type 2 diabetes mellitus Atherosclerotic heart disease of tribe coronary artery without angina pectoris Essential hypertension History of coronary artery bypass graft x 3 LBBB (left bundle branch block) Mixed hyperlipidemia Palpitations PVC (premature ventricular contraction) Tobacco abuse Chief Complaint CP ER FU - PRATIBHA Amb Documentation CP/PALPITATIONS/REF. BAHENA HYPERSOMNIA VENTRICULAR PREMATURE DEPOLARIZATION 6 wk FU JAUN,AUTOPAP SETUP Reason for Visit Dyspnea Hypersomnia Type 2 diabetes mellitus Atherosclerotic heart disease of tribe coronary artery without angina pectoris Essential hypertension History of coronary artery bypass graft x 3 LBBB (left bundle branch block) Mixed hyperlipidemia Palpitations PVC (premature ventricular contraction) Tobacco abuse Atherosclerotic heart disease of tribe coronary artery without angina pectoris JAUN (obstructive sleep apnea) Tobacco abuse Type 2 diabetes mellitus Chief Complaint CP ER FU - PRATIBHA Amb Documentation CP/PALPITATIONS/REF. BAHENA HYPERSOMNIA VENTRICULAR PREMATURE DEPOLARIZATION 6 wk FU JAUN,AUTOPAP SETUP Pt needs a mon: follow up after CPAP fever, aches, wants covid test Reason for Visit Dyspnea Hypersomnia Type 2 diabetes mellitus Atherosclerotic heart disease of tribe coronary artery without angina pectoris Essential hypertension History of coronary artery bypass graft x 3 LBBB (left bundle branch block) Mixed hyperlipidemia Palpitations PVC (premature ventricular contraction) Tobacco abuse JAUN (obstructive sleep apnea) Atherosclerotic heart disease of tribe coronary artery without angina pectoris Tobacco abuse Type 2 diabetes mellitus Atherosclerotic heart disease of tribe coronary artery without angina pectoris Essential hypertension History of coronary artery bypass graft x 3 LBBB (left bundle branch block) Mixed hyperlipidemia Palpitations PVC (premature ventricular contraction) Tobacco abuse COVID Chief Complaint CP ER FU - PRATIBHA Amb Documentation CP/PALPITATIONS/REF. BAHENA HYPERSOMNIA VENTRICULAR PREMATURE DEPOLARIZATION 6 wk FU JAUN,AUTOPAP SETUP Pt needs a mon: follow up after CPAP fever, aches, wants covid test 2 M FU LEFT THYROID NODULE Reason for Visit Dyspnea Hypersomnia Type 2 diabetes mellitus Atherosclerotic heart disease of tribe coronary artery without angina pectoris Essential hypertension History of coronary artery bypass graft x 3 LBBB (left bundle branch block) Mixed hyperlipidemia Palpitations PVC (premature ventricular contraction) Tobacco abuse Atherosclerotic heart disease of tribe coronary artery without angina pectoris JAUN (obstructive sleep apnea) Tobacco abuse Type 2 diabetes mellitus Atherosclerotic heart disease of tribe coronary artery without angina pectoris Essential hypertension History of coronary artery bypass graft x 3 LBBB (left bundle branch block) Mixed hyperlipidemia Palpitations PVC (premature ventricular contraction) Tobacco abuse COVID Left thyroid nodule Essential hypertension JAUN (obstructive sleep apnea) Type 2 diabetes mellitus Chief Complaint CP/PALPITATIONS/REF. BAHENA HYPERSOMNIA VENTRICULAR PREMATURE DEPOLARIZATION 6 wk FU JAUN,AUTOPAP SETUP Pt needs a mon: follow up after CPAP fever, aches, wants covid test 2 M FU LEFT THYROID NODULE Thyroid Nodules Reason for Visit Atherosclerotic hear t disease of tribe coronary artery without angina pectoris Essential hypertension History of coronary artery bypass graft x 3 LBBB (left bundle branch block) Mixed hyperlipidemia Palpitations PVC (premature ventricular contraction) Tobacco abuse Atherosclerotic heart disease of tribe coronary artery without angina pectoris JAUN (obstructive sleep apnea) Tobacco abuse Type 2 diabetes mellitus Atherosclerotic heart disease of tribe coronary artery without angina pectoris Essential hypertension History of coronary artery bypass graft x 3 LBBB (left bundle branch block) Mixed hyperlipidemia Palpitations PVC (premature ventricular contraction) Tobacco abuse COVID Left thyroid nodule Essential hypertension JAUN (obstructive sleep apnea) Type 2 diabetes mellitus Multiple thyroid nodules Thyromegaly Chief Complaint 6 wk FU JAUN,AUTOPAP SETUP Pt needs a mon: follow up after CPAP fever, aches, wants covid test 2 M FU LEFT THYROID NODULE Thyroid Nodules FNA W/AFFRIMA LEFT THYROID NODULE Reason for Visit Atherosclerotic hear t disease of tribe coronary artery without angina pectoris JAUN (obstructive sleep apnea) Tobacco abuse Type 2 diabetes mellitus Atherosclerotic heart disease of tribe coronary artery without angina pectoris Essential hypertension History of coronary artery bypass graft x 3 LBBB (left bundle branch block) Mixed hyperlipidemia Palpitations PVC (premature ventricular contraction) Tobacco abuse COVID Left thyroid nodule Essential hypertension JAUN (obstructive sleep apnea) Type 2 diabetes mellitus Multiple thyroid nodules Thyromegaly Left thyroid nodule Chief Complaint 2 M FU LEFT THYROID NODULE Thyroid Nodules FNA W/AFFRIMA LEFT THYROID NODULE 3 M FU RIGHT HIP PAIN/NO KNOWN INJURY xray RIGHT HIP PAIN Reason for Visit Left thyroid nodule Essential hypertension JAUN (obstructive sleep apnea) Type 2 diabetes mellitus Multiple thyroid nodules Thyromegaly Left thyroid nodule Multiple thyroid nodules JAUN (obstructive sleep apnea) Essential hypertension Type 2 diabetes mellitus Right hip pain Right low back pain Chief Complaint 3 M FU RIGHT HIP PAIN/NO KNOWN INJURY xray RIGHT HIP PAIN 8 m fu 3 m f/u diabetes. EORDERS- NOT FASTING/STILL WANTS TO DO LABS Reason for Visit Multiple thyroid nod ules JAUN (obstructive sleep apnea) Essential hypertension Type 2 diabetes mellitus Right hip pain Right low back pain Atherosclerotic heart disease of tribe coronary artery without angina pectoris Essential hypertension History of coronary artery bypass graft x 3 LBBB (left bundle branch block) Mixed hyperlipidemia Palpitations PVC (premature ventricular contraction) Tobacco abuse Essential hypertension Type 2 diabetes mellitus Chief Complaint THYROID NODULE 6 M FU Reason for Visit CAD (coronary artery disease) Dyslipidemia Essential hypertension History of coronary artery bypass graft x 3 Nicotine dependence JAUN (obstructive sleep apnea) Type 2 diabetes mellitus Chief Complaint 6 M FU CHEST PAIN Reason for Visit CAD (coronary artery disease) Dyslipidemia Essential hypertension History of coronary artery bypass graft x 3 Nicotine dependence JAUN (obstructive sleep apnea) Type 2 diabetes mellitus Chief Complaint 6 M FU CHEST PAIN N/T Reason for Visit CAD (coronary artery disease) Dyslipidemia Essential hypertension History of coronary artery bypass graft x 3 Nicotine dependence JAUN (obstructive sleep apnea) Type 2 diabetes mellitus Chief Complaint THYROID NODULE Chief Complaint Admit Date 1 Y FU June 14, 2025 3: 22pm Reason for Visit Admit Date Dyslipidemia June 14, 2025 3: 22pm Essential hypertension June 14, 2025 3:22pm History of coronary artery bypass graft x 3 June 14, 2025 3:22pm Nicotine dependence June 14, 2025 3: 22pm JAUN (obstructive sleep apnea) May 3:22pm Type 2 diabetes mellitus June 14 3:22pm Additional Source Comments INFORMATION SOURCE (unrecogn ized section and content) DATE CREATED AUTHOR 01/07/2019 [facility] DATE CREATED AUTHOR AUTHOR'S ORGANIZ ATION 01/09/2019 [facility] DATE CREATED AUTHOR AUTHOR'S ORGANIZ ATION 01/11/2020 [facility] DATE CREATED AUTHOR AUTHOR'S ORGANIZ ATION 06/16/2025 [facility] Reason for Visit (unrecogniz ed section and content) Reason Comments Pain Reason Comments Appointment Reason Comments MRI Results Follow-up Reason Comments New Patient No complaints. Pre-op Exam Scheduled on 03/05/19 for right knee surgery to remove a loose body growth. Dr. Hoyt will be performing the surgery. Status Reason Specialty Diagnoses / Procedures Referred By Contact Referred To Contact Closed Cardiovascular Medicine Diagnoses Pre-operative clearance Anthony Hoyt MD [address] [place] [phone] Klaus Christine DO [address] [place] [id number] Reason Comments Preoperative Nurse Assessment Surgery sc heduled 03/05/19 Reason Comments Results Status Reason Specialty Diagnoses / Procedures Referre d By Contact Referred To Contact Diagnoses Loose body of right knee Loose body of right knee [M23.41] Procedures ID ARTHROTOMY/EXPLORE/JAMIE AT KNEE JOINT ARTHROTOMY KNEE Anthony Hoyt MD [address] [place] [id number] Status Reason Specialty Diagnoses / Procedures Referred By Contact Referred To Contact New Request Diagnoses History of total knee arthroplasty, right Procedures XR KNEE RIGHT 3 VIEWS Joan Guillermo, PROCEDURES RN-APPLICATIONS ENGINEERING MANAGER [address] [id number] Reason Comments Post Op Visit Reason Comments Follow-up Reason Comments Other Status Reason Specialty Diagnoses / Procedures Referred By Contact Referred To Contact Closed Magnetic Resonan ce Imaging Diagnoses Abnormal x-ray Procedures MRI KNEE RIGHT WITHOUT CONTRAST ID MRI LOWER EXTREM JT, W/O CONTRAST Anthony Hoyt MD [address] [place] [id number] Maryjo Ont Mri [address] [place] [phone] Reason Comments Pre-op Exam Right knee surgery. Status Reason Specialty Diagnoses / Procedures Referred By Contact Referred To Contact New Request Diagnoses Right knee pain, unspecified chronicity Procedures XR KNEE RIGHT 4+ VIEWS XR KNEE LEFT 4+ VIEWS Anthony Hoyt MD [address] [place] [id number] Goals (unrecognized section and content) Goals may be documented in a n alternate sectionGoals may be documented in an alternate sectionGoals may be documented in an alternate sectionGoals may be documented in an alternate sectionGoals may be documented in an alternate sectionGoals may be documented in an alternate sectionGoals may be documented in an alternate sectionGoals may be documented in an alternate sectionGoals may be documented in an alternate sectionGoals may be documented in an alternate sectionGoals may be documented in an alternate sectionGoals may be documented in an alternate sectionGoals may be documented in an alternate sectionGoals may be documented in an alternate sectionGoals may be documented in an alternate section Care Teams (unrecognized sec tion and content) Wallpaper Cleaner Relationship Specialty Start Date End Date Otoniel Matos DO PCP - General Endocrinology/Metabolism 05/11/16 Team Status: Active Member Role Status Dates Dr. Desmond R Brown , DO Family Provider Active Dr. Desmond Locke , DO Primary Care Provider Active Team Status: Inactive Member Role Status Dates Dr. Desmond Locke , DO Primary Care Provider, Referr ing Provider Active Nish Bahena CIGAR BINDER, CIGAR BINDER-C Attending Provider Active Team Status: Inactive Member Role Status Dates Dr. Desmond Locke , DO Primary Care Provider, Referr ing Provider Active Marky Sotelo CIGAR BINDER, CIGAR BINDER-C Attending Provider Active Team Status: Inactive Member Role Status Dates Dr. eDsmond Locke , DO Primary Care Provider, Referr ing Provider Active TIMOTHY Goodman Attending Provider Active Team Status: Inactive Member Role Status Dates Dr. Desmond Locke , DO Primary Care Provider, Referr ing Provider Active Dr. Ifeanyi Mirza MD Attending Provider Active Team Status: Inactive Member Role Status Dates Dr. Desmond Locke , DO Primary Care Provider Active Nish Bahena CIGAR BINDER, CIGAR BINDER-C Attending Provider Active Team Status: Inactive Member Role Status Dates Dr. Desmond Locke , DO Primary Care Provider Active TIMOTHY Goodman Attending Provider, Referring Pro vider Active Team Status: Inactive Member Role Status Dates Dr. Desmond Locke , DO Primary Care Provider Active Nish Bahena CIGAR BINDER, CIGAR BINDER-C Attending Provider, Referring Prov ider Active Team Status: Inactive Member Role Status Dates Dr. Desmond Locke , DO Primary Care Provider Active Dr. Ifeanyi Mirza MD Attending Provider Active Team Status: Inactive Member Role Status Dates Dr. Desmond Locke , DO Primary Care Provider Active Dr. Ifeanyi Mirza MD Attending Provider, Referring P rovider Active Team Status: Inactive Member Role Status Dates Dr. Desmond Locke , DO Primary Care Provider, Referr ing Provider Active Manny AGUIRRE, PA Attending Provider Active Team Status: Inactive Member Role Status Dates Dr. Desmond Locke , DO Primary Care Provider Active Dr. Alexys León MD Attending Provider Active Team Status: Inactive Member Role Status Dates Dr. Desmond Locke , DO Primary Care Provider Active Dr. Alexus Mercado , DO Emergency Provider Active Team Status: Inactive Member Role Status Dates Dr. Desmond Locke , DO Primary Care Provider Active Dr. Alexus Mercado , DO Attending Provider, Emergency P rovider Active Team Status: Inactive Member Role Status Dates Dr. Desmond Locke , DO Primary Care Provider Active Marky Sotelo CIGAR BINDER, CIGAR BINDER-C Attending Provider, Referring Pro vider Active Team Status: Active Member Role Status Dates Dr. Desmond Locke DO Family Provider Active Nish Bahena VSC, CIGAR BINDER-C Primary Care Provider Active Team Status: Inactive Member Role Status Dates Dr. Desmond Locke DO Referring Provider Active Dr. Cliff Vazquez MD Attending Provider Active Nish Bahena VSC, CIGAR BINDER-C Primary Care Provider Active Team Status: Inactive Member Role Status Dates Dr. Ifeanyi Mirza MD Attending Provider, Referring P rovider Active Nish Bahena VSC, CIGAR BINDER-C Primary Care Provider Active Team Status: Inactive Member Role Status Dates Nish Bahena VSC, CIGAR BINDER-C Primary Care Provider Active Dr. Cliff Vazquez MD Attending Provider, Referring Pr ovider Active Team Status: Inactive Member Role Status Dates Nish Bahena VSC, CIGAR BINDER-C Primary Care Provider Active Dr. Karina Ruiz MD Emergency Provider Active Team Status: Inactive Member Role Status Dates Nish Bahena VSC, CIGAR BINDER-C Primary Care Provider Active Ed Physician Provider Emergency Provider Active Team Status: Inactive Member Role Status Dates Nish Bahena VSC, CIGAR BINDER-C Primary Care Provider Active Dr. Karina Ruiz MD Attending Provider, Emergency Provider Active Team Status: Active Member Role/Relationship Status Dates Dr. Desmond Locke DO Family Provider Active Nish Bahena VSC, [employer] Primary Care Provider Active Team Status: Inactive Member Role/Relationship Status Dates Nish Justiceder VSC, [employer] Primary Care Provider Active Start: June 14, 2025 End: June 14, 2025 Nish Bahena VSC, [employer] Referring Provider Active S tart: June 14, 2025 End: June 14, 2025 Kellie Coronado [employer], [employer] Attending Provider Active Start: June 14, 2025 End: June 14, 2025 FOR RECORDS PERTAINING TO PATIENTS WHO ARE OR HAVE BEEN ENROLLED IN A CHEMICAL DEPENDENCY/SUBSTANCEABUSE PROGRAM, SOME INFORMATION MAY BE OMITTED. This clinical summary was aggregated from multiple sources. Caution should be exercised in using it in the provision of clinical care. This summary normalizes information from multiple sources, and as a consequence, information in this document may materially change the coding, format and clinical context of patient data. In addition, data may be omitted in some cases. CLINICAL DECISIONS SHOULD BE BASED ON THE PRIMARY CLINICAL RECORDS. [employer] provides no warranty or guarantee of the accuracy or completeness of information in this document.
[2025-07-06 10:59] LABS: AST(SGOT) 21 U/L (<=31); Alanine Aminotransfer ALT/SGPT 28 U/L (<=34); Albumin, Serum 4.4 g/dL (3.4-4.8); Alkaline Phosphatase 65 U/L (35-104); Bilirubin, Direct 0.58 mg/dL (0.00-0.30); Cholesterol 125 mg/dL (<=200); Globulin 2.9 g/dL (2.2-4.2); Low Density Lipoprotein Calc. 56 mg/dL; Triglycerides 92 mg/dL; Very Low Density Lipoprotein 18 mg/dL (5-40); cholesterol:hdl ratio screen 2.46
== END | disposition home or self-care (01) ==
LOC: LAB 08:43
PROVIDERS: PCP Nurse Practitioner Family; Referring Provider Nurse Practitioner Gerontology; Visit Provider Nurse Practitioner Gerontology
DX: E78.5 Hyperlipidemia, unspecified (principal)
CPT/HCPCS: 36415; 80061; 80076

== ENCOUNTER → 2025-09-23 | Outpatient (CLI) | payer OTHER, SELFPAY ==
--- NOTE | 2025-09-23 11:41 | US_ITS ---
PROCEDURE: THYROID 09/23/2025 REASON FOR EXAM: YEARLY TECHNIQUE: Procedure Code: USTHY Modality: US Procedure: THYROID COMPARISON: Thyroid ultrasound, 10/01/2024. FINDINGS: Right thyroid lobe size: 6.1 x 2.9 x 2.2 cm (was 6.9 x 2.6 x 2.0 cm). -upper pole, 2.2 x 1.5 x 1.3 cm, solid, heterogeneous, with a smooth margin. TR 3. -interpolar, 3.7 x 3.1 x 1.7 cm, solid, heterogeneous, with a smooth margin. TR 3. -lower pole, 7 x 7 x 4 mm, solid, homogeneous, with a smooth margin. TR 3. Left thyroid lobe size: 7.0 x 4.6 x 4.2 cm (was 7.5 x 4.1 x 2.9 cm). -interpolar, 6.0 x 4.1 x 4.0 cm (was 5.6 cm in greatest dimension), mixed cystic and solid, with a smooth margin. Contains macro calcifications. TR 4. Isthmus: 3 mm (was 3 mm). US/Thyroid IMPRESSION: Per TI rads guidelines, FNA is recommended for the TR 4 nodule in the left thyr oid lobe and the largest TR 3 nodule in the right thyroid lobe. RECOMMENDATION: Based on most suspicious nodule. Nodule size = largest diameter Only evaluate nodule if =>5 mm. Growth > 20% in 2 dimensions = worsening. Follow up to 4 nodules. Recommend biopsy for no more than 2 nodules. Reading Location: [id number]
== END | disposition home or self-care (01) ==
LOC: US 11:38
PROVIDERS: PCP Nurse Practitioner Family; Referring Provider Surgery; Visit Provider Surgery
DX: E04.1 Nontoxic single thyroid nodule (principal)
CPT/HCPCS: 76536